=== PATIENT | female | born 1965 | race Caucasian/White ===

== ENCOUNTER 2018-07-18 19:47 | Emergency (ER) | payer BC ==
[2018-07-18] MEDS ORDERED: KETOROLAC 30 MG/ML INJ ONE (21:12)
[2018-07-18] MEDS ORDERED: predniSONE 20 MG TAB ONE (21:12)
[2018-07-18 21:19] LABS: Urine Blood TRACE (NEG); Urine Glucose NEGATIVE (NEG); Urine Protein NEGATIVE (NEG); Urine pH 6.5 (5.0-7.0)
--- NOTE | 2018-07-18 21:58 | EDPHYS ---
Physician Documentation [facility] Name: Rosa Isela Grant Age: 53 yrs Sex: Female : 1965 Arrival Date: 07/18/2018 Time: 19:50 Bed 18 Private MD: Landry Schaffer ED Physician Steve Addison HPI: 07/18 21:44 This 53 yrs old Female presents to ER via Ambulatory with complaints of Back gs Pain. 21:48 The patient presents with pain that is acute. The symptoms are located in the left gs scapular area. Onset: The symptoms/episode began/occurred 2 week(s) ago, and became persistent. The pain does not radiate. Associated signs and symptoms: Pertinent negatives: abdominal pain, chest pain, dysuria, fever. Modifying factors: the patient symptoms are aggravated by any movement, turning, touching medial to left scapula. Severity of symptoms: At their worst the symptoms were moderate, in the emergency department the symptoms are unchanged. The patient has not experienced similar symptoms in the past. 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 - Social history:: Smoking status: Patient/guardian denies using tobacco. - Ebola Screening: : Patient denies travel to an Ebola-affected area in the 21 days before illness onset. ROS: 21:48 All other systems are negative. gs Exam: 21:48 Head/Face: Normocephalic, atraumatic. Eyes: Pupils equal round and reactive to light, gs extra-ocular motions intact. Lids and lashes normal. Conjunctiva and sclera are non-icteric and not injected. Cornea within normal limits. Periorbital areas with no swelling, redness, or edema. ENT: Nares patent. No nasal discharge, no septal abnormalities noted. Tympanic membranes are normal and external auditory canals are clear. Oropharynx with no redness, swelling, or masses, exudates, or evidence of obstruction, uvula midline. Mucous membranes moist. Neck: Trachea midline, no thyromegaly or masses palpated, and no cervical lymphadenopathy. Supple, full range of motion without nuchal rigidity, or vertebral point tenderness. No Meningismus. Chest/axilla: Normal chest wall appearance and motion. Nontender with no deformity. No lesions are appreciated. Cardiovascular: Regular rate and rhythm with a normal S1 and S2. No gallops, murmurs, or rubs. Normal PMI, no JVD. No pulse deficits. Respiratory: Lungs have equal breath sounds bilaterally, clear to auscultation and percussion. No rales, rhonchi or wheezes noted. No increased work of breathing, no retractions or nasal flaring. Abdomen/GI: Soft, non-tender, with normal bowel sounds. No distension or tympany. No guarding or rebound. No evidence of tenderness throughout. Skin: Warm, dry with normal turgor. Normal color with no rashes, no lesions, and no evidence of cellulitis. MS/ Extremity: Pulses equal, no cyanosis. Neurovascular intact. Full, normal range of motion. Neuro: Awake and alert, GCS 15, oriented to person, place, time, and situation. Cranial nerves II-XII grossly intact. Motor strength 5/5 in all extremities. Sensory grossly intact. Cerebellar exam normal. Normal gait. 21:48 Constitutional: The patient appears alert, awake. 21:48 ECG was reviewed by the Attending Physician. 21:48 Back: pain, that is moderate, of the left scapular area. Vital Signs: 20:27 BP 154 / 116; Pulse 105; Resp 20; Temp 97.8; Pulse Ox 99% on R/A; Weight 86.18 kg (R); aj1 Height 5 ft. 2 in. (157.48 cm) (R); Pain 9/10; 21:51 BP 134 / 94; Pulse 81; Resp 16; Pulse Ox 98% on R/A; la1 20:27 Body Mass Index 34.75 (86.18 kg, 157.48 cm) aj1 MDM: 20:41 Patient medically screened. gs 21:48 Differential diagnosis: Ligament Injury sprain. Data reviewed: vital signs, nurses gs notes. Counseling: I had a detailed discussion with the patient and/or guardian regarding: the historical points, exam findings, and any diagnostic results supporting the discharge/admit diagnosis, radiology results, the need for outpatient follow up. Response to treatment: the patient's symptoms have markedly improved after treatment, and as a result, I will discharge patient. 07/18 20:53 Order name: Urine Dipstick--Ancillary (enter results) em 07/18 20:53 Order name: Urine --Ancillary (enter results) em 07/18 20:47 Order name: EKG; Complete Time: 20:47 07/18 20:47 Order name: XRAY Chest Pa And Lat (2 Views) 07/18 20:47 Order name: EKG - Nurse/Tech; Complete Time: 20:54 07/18 20:53 Order name: Urine Test (obtain specimen); Complete Time: 20:53 em1 EC:48 Rate is 81 beats/min. Rhythm is regular. MI interval is normal. QRS interval is normal. gs T waves are Flattened. Clinical impression: NSR w/ Non-specific ST/T Changes and Abnormal EKG without significant change. Interpreted by me. Administered Medications: 21:08 Drug: predniSONE 20 mg Route: PO; la1 21:51 Follow up: Response: No adverse reaction la1 21:08 Drug: TORadol 30 mg Route: IM; Site: left gluteus; la1 21:51 Follow up: Response: No adverse reaction; Pain is decreased la1 Disposition: 07/18/18 21:57 Discharged to Home. Impression: Dorsalgia. - Condition is Stable. - Discharge Instructions: Back Pain, Adult. - Prescriptions for Prednisone 20 mg Oral Tablet - take 1 tablet by ORAL route once daily for 5 days; 5 tablet. Tylenol- Codeine #4 300-60 mg Oral Tablet - take 1 tablet by ORAL route every 6 hours As needed; 10 tablet. - Medication Reconciliation Form, Thank You Letter, Antibiotic Education, Prescription Opioid Use form. - Follow up: Private Physician; When: 2 - 3 days; Reason: Re-evaluation by your physician. Signatures: Dispatcher [employer] EDMS Rosa Isela Jiménez RN RN Te Odell em1 Corey Lazo RN RN la1 Steve Addison MD MD gs Corrections: (The following items were deleted from the chart) 22:01 21:57 07/18/2018 21:57 Discharged to Home. Impression: Dorsalgia. Condition is Stable. la1 Forms are Medication Reconciliation Form, Thank You Letter, Antibiotic Education, Prescription Opioid Use. Follow up: Private Physician; When: 2 - 3 days; Reason: Re-evaluation by your physician. gs
--- NOTE | 2018-07-18 21:58 | ER ---
Nurse's Notes [facility] Name: Rosa Isela Grant Age: 53 yrs Sex: Female : 1965 Arrival Date: 07/18/2018 Time: 19:50 Bed 18 Private MD: Landry Schaffer Diagnosis: Dorsalgia Presentation: 07/18 20:20 Presenting complaint: Patient states: "A couple weeks now between my shoulder blades aj1 and then down my left side. I know I have gallstones. Its gotten to where I can't take deep breaths and sitting positions are very uncomfortable." Patient states that she was diagnosed with gallstones a year ago, but [facility] to follow up with anyone about it. Transition of care: patient was not received from another setting of care. Onset of symptoms was June 2018. Risk Assessment: Do you want to hurt yourself or someone else? Patient reports no desire to harm self or others. Initial Sepsis Screen: Does the patient meet any 2 criteria? HR > 90 bpm. No. Patient's initial sepsis screen is negative. Does the patient have a suspected source of infection? Yes: Acute abdominal pain. Care prior to arrival: None. 20:20 Method Of Arrival: Ambulatory aj1 20:20 Acuity: BRISSA 3 aj1 Triage Assessment: 20:27 General: Appears in no apparent distress. comfortable, Behavior is calm, cooperative, aj1 appropriate for age. Pain: Complains of pain in left scapular area, right scapular area, left subscapular area and thoracic area Pain currently is 9 out of 10 on a pain scale. Neuro: Level of Consciousness is awake, alert, obeys commands. Cardiovascular: Patient's skin is warm and dry. Respiratory: Airway is patent Respiratory effort is even, unlabored, Respiratory pattern is regular, symmetrical. Musculoskeletal: Range of motion: intact in all extremities. 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 - Social history:: Smoking status: Patient/guardian denies using tobacco. - Ebola Screening: : Patient denies travel to an Ebola-affected area in the 21 days before illness onset. Screenin:59 Abuse screen: Denies threats or abuse. Nutritional screening: No deficits noted. la1 Tuberculosis screening: No symptoms or risk factors identified. Fall Risk None identified. Assessment: 20:58 General: Appears uncomfortable, Behavior is calm, cooperative, appropriate for age. la1 Pain: Complains of pain in back and thoracic area and left subscapular area. Neuro: Level of Consciousness is awake, alert, obeys commands, Oriented to person, place, time, situation. Cardiovascular: Heart tones S1 S2 present Capillary refill < 3 seconds Patient's skin is warm and dry. Respiratory: Airway is patent Trachea midline Respiratory effort is even, unlabored, Respiratory pattern is regular, symmetrical. GI: No signs and/or symptoms were reported involving the gastrointestinal system. : No signs and/or symptoms were reported regarding the genitourinary system. 21:48 Reassessment: Patient appears in no apparent distress at this time. No changes from la1 previously documented assessment. Patient and/or family updated on plan of care and expected duration. Pain level reassessed. Vital Signs: 20:27 BP 154 / 116; Pulse 105; Resp 20; Temp 97.8; Pulse Ox 99% on R/A; Weight 86.18 kg (R); aj1 Height 5 ft. 2 in. (157.48 cm) (R); Pain 9/10; 21:51 BP 134 / 94; Pulse 81; Resp 16; Pulse Ox 98% on R/A; la1 20:27 Body Mass Index 34.75 (86.18 kg, 157.48 cm) aj1 ED Course: 19:50 Patient arrived in ED. al2 19:50 Landry Schaffer MD is Private Physician. al2 20:26 Triage completed. aj1 20:27 Arm band placed on Patient placed in an exam room, on a stretcher. aj1 20:33 Steve Addison MD is Attending Physician. gs 20:49 Corey Lazo, RUSS is Primary Nurse. la1 20:59 Call light in reach. Side rails up X 1. la1 21:16 XRAY Chest Pa And Lat (2 Views) In Process Unspecified. EDMS 22:00 No provider procedures requiring assistance completed. Patient did not have IV access la1 during this emergency room visit. Administered Medications: 21:08 Drug: predniSONE 20 mg Route: PO; la1 :51 Follow up: Response: No adverse reaction la1 21: Drug: TORadol 30 mg Route: IM; Site: left gluteus; la1 21:51 Follow up: Response: No adverse reaction; Pain is decreased la1 Outcome: :57 Discharge ordered by . glenroy 22:00 Discharged to home ambulatory. la1 22:00 Condition: stable 22:00 Discharge instructions given to patient, Instructed on discharge instructions, follow up and referral plans. medication usage, Demonstrated understanding of instructions, follow-up care, medications, Prescriptions given X 2. 22:01 Patient left the ED. la1 Signatures: Dispatcher [employer] EDMS Rosa Isela Jiménez RN RN aj1 Corey Lazo RN RN la1 Steve Addison MD MD gs Love, Telma mooney
[2018-07-19 09:26] VITALS: TEMP 97.8
[2018-07-19 09:27] VITALS: BP 134/94; O2SAT 98
--- NOTE | 2018-07-19 11:47 | EKG ---
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
--- NOTE | 2018-07-19 12:52 | RAD REPORT ---
EXAM DESCRIPTION: RAD - Chest Pa And Lat (2 Views) - 07/18/2018 9:42 pm CLINICAL HISTORY: Chest pain, back pain COMPARISON: March 30, 2018 TECHNIQUE: PA and lateral views of the chest were obtained. FINDINGS: The lungs are clear. Lung markings are similar to comparison. Heart size is normal and ce ntral vasculature is within normal limits. No pleural effusion or pneumothorax seen. No acute bony finding noted. No aortic abnormality. IMPRESSION: No acute cardiopulmonary process.
== END 2018-07-18 22:01 | disposition home or self-care (01) ==
LOC: ER 19:47
DX: M54.9 Dorsalgia, unspecified (principal); I10 Essential (primary) hypertension; Z79.82 Long term (current) use of aspirin; Z88.0 Allergy status to penicillin
CPT/HCPCS: 71046; 81003; 81025; 93005; 96372; 99283; J7512

== ENCOUNTER 2018-08-03 00:34 | Emergency (ER) | payer BC ==
[2018-08-03] MEDS ORDERED: MORPHINE 4 MG/ML SYR ONE (01:16)
[2018-08-03] MEDS ORDERED: ONDANSETRON 4 MG/2 ML VIAL ONE (01:16)
[2018-08-03 01:19] LABS: Absolute Lymphocytes (CBC) 2.1 K/uL (0.7-4.9); Absolute Monocytes 1.1 K/uL (0.1-1.3); Absolute Neutrophil 6.3 K/uL (1.8-8.0); Basophils % 0.6 % (0-1.3); Eosinophils % 0.9 % (0-4.4); Hematocrit 43.3 % (36.0-45.0); Lymphocytes % 21.6 % (15.3-44.8); MCH 31.1 pg (27.0-35.0); MPV 8.2 fL (7.6-11.3); Monocytes % 11.5 % (3.3-12.3); RBC Red Blood Cell Count 4.75 M/uL (3.86-4.86)
[2018-08-03 01:40] LABS: Albumin 3.8 g/dL (3.4-5.0); Bilirubin Direct 0.2 mg/dL (0-0.2); Potassium 3.8 mmol/L (3.5-5.1); Protein, Total 7.7 g/dL (6.4-8.2)
[2018-08-03 02:34] LABS: Urine Blood TRACE (NEG); Urine Glucose NEGATIVE (NEG); Urine Protein NEGATIVE (NEG)
--- NOTE | 2018-08-03 03:08 | ER ---
Nurse's Notes [facility] Name: Rosa Isela Grant Age: 53 yrs Sex: Female : 1965 Arrival Date: 08/03/2018 Time: 00:35 Bed 14 Private MD: Landry Schaffer Diagnosis: Cholelithiasis Presentation: 08/03 00:47 Presenting complaint: Patient states: I have gallstones and am suppose to see Dr. greg Strauss Tuesday to schedule the removal of my gallbladder. This round of pain started on Tuesday and hasn't gotten better. Transition of care: patient was not received from another setting of care. Onset of symptoms was July 30, 2018. Risk Assessment: Do you want to hurt yourself or someone else? Patient reports no desire to harm self or others. Initial Sepsis Screen: Does the patient meet any 2 criteria? No. Patient's initial sepsis screen is negative. Does the patient have a suspected source of infection? No. Patient's initial sepsis screen is negative. Care prior to arrival: None. 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 - Social history:: Smoking status: Patient/guardian denies using tobacco, Patient/guardian denies using alcohol. - Ebola Screening: : No symptoms or risks identified at this time. Screenin:56 Abuse screen: Denies threats or abuse. Nutritional screening: No deficits noted. jb4 Tuberculosis screening: No symptoms or risk factors identified. Fall Risk IV access (20 points). Assessment: 01:15 General: Appears in no apparent distress. uncomfortable, Behavior is calm, cooperative, jb4 appropriate for age. Pain: Complains of pain in right upper quadrant Pain radiates to right mid back Pain currently is 10 out of 10 on a pain scale. Quality of pain is described as sharp, shooting, Pain began 2-3 days ago. Neuro: Level of Consciousness is awake, alert, obeys commands, Oriented to person, place, time, situation. Cardiovascular: Patient's skin is warm and dry. Respiratory: Airway is patent Respiratory effort is even, unlabored, Respiratory pattern is regular, symmetrical. GI: Bowel sounds present X 4 quads. Abd is soft X 4 quads Abd is non tender in left upper quadrant, right lower quadrant and left lower quadrant Abdomen is tender to palpation in right upper quadrant Reports nausea, vomiting. : No signs and/or symptoms were reported regarding the genitourinary system. EENT: No signs and/or symptoms were reported regarding the EENT system. Derm: Skin is intact, Skin is pink, warm \T\ dry. Musculoskeletal: Circulation, motion, and sensation intact. 02:28 Reassessment: Patient appears in no apparent distress at this time. Patient and/or jb4 family updated on plan of care and expected duration. Pain level reassessed. PT is resting quietly in bed with eyes closed, Respirations are even and unlabored. 03:47 Reassessment: Patient appears in no apparent distress at this time. Patient and/or jb4 family updated on plan of care and expected duration. Pain level reassessed. Patient is alert, oriented x 3, equal unlabored respirations, skin warm/dry/pink. Vital Signs: 00:52 BP 137 / 88; Pulse 76; Resp 18; Temp 100.0(O); Pulse Ox 99% on R/A; Weight 86.18 kg jb4 (R); Height 5 ft. 2 in. (157.48 cm) (R); Pain 10/10; 02:15 BP 128 / 83; Pulse 73; Resp 16; Pulse Ox 95% on R/A; jb4 03:47 BP 114 / 85; Pulse 79; Resp 16; Pulse Ox 93% on R/A; jb4 00:52 Body Mass Index 34.75 (86.18 kg, 157.48 cm) jb4 ED Course: 00:35 Patient arrived in ED. ds1 00:35 Landry Schaffer MD is Private Physician. ds1 00:42 Donate Oshea RN is Primary Nurse. jb4 00:50 Triage completed. jb4 00:50 Darinel Coppola NP is PHCP. pm1 00:50 Slava Maldonado MD is Attending Physician. pm1 00:52 Arm band placed on left wrist. jb4 00:56 Patient has correct armband on for positive identification. Bed in low position. Call jb4 light in reach. Side rails up X 1. Pulse ox on. NIBP on. 00:56 Initial lab(s) drawn, by ED staff, sent to lab. Inserted saline lock: 20 gauge in right jb4 antecubital area, using aseptic technique. Blood collected. 01:57 CT completed. Patient tolerated procedure well. Patient moved to CT via wheelchair. Patient moved back from CT. 02:05 Abdomen In Process Unspecified. EDMS 03:07 Dontae Oakley MD is Referral Physician. pm1 03:47 No provider procedures requiring assistance completed. IV discontinued, intact, jb4 bleeding controlled. Administered Medications: 01:10 Drug: Zofran 4 mg Route: IVP; Site: right antecubital; jb4 02:00 Follow up: Response: No adverse reaction; Nausea is decreased jb4 01:13 Drug: morphine 4 mg Route: IVP; Site: right antecubital; jb4 01:59 Follow up: Response: No adverse reaction; Pain is decreased jb4 Outcome: 03:07 Discharge ordered by . pm1 03:47 Discharged to home ambulatory, with significant other. jb4 03:47 Condition: stable 03:47 Discharge instructions given to patient, significant other, Instructed on discharge instructions, follow up and referral plans. medication usage, Demonstrated understanding of instructions, follow-up care, medications, Prescriptions given X 3. 03:49 Patient left the ED. jb4 Signatures: Dispatcher [employer] EDNC Erick Saha Graciela Vital ds1 Darinel Coppola, JORDANA COMPUTATOR pm1 Dontae Oshea, RN RN jb4
--- NOTE | 2018-08-03 03:08 | EDPHYS ---
Physician Documentation [facility] Name: Rosa Isela Grant Age: 53 yrs Sex: Female : 1965 Arrival Date: 08/03/2018 Time: 00:35 Bed 14 Private MD: Landry Schaffer ED Physician Slava Maldonado HPI: 08/03 01:50 This 53 yrs old Female presents to ER via Ambulatory with complaints of pm1 Abdominal Pain, Nausea/Vomiting. 01:50 The patient presents with abdominal pain in the epigastric area. pm1 01:50 Onset: The symptoms/episode began/occurred 4 day(s) ago. The symptoms radiate to right pm1 back. Associated signs and symptoms: Pertinent positives: nausea and vomiting, Pertinent negatives: chest pain, dysuria, fever, headache, shortness of breath. The symptoms are described as achy, constant. Modifying factors: The symptoms are alleviated by nothing, the symptoms are aggravated by nothing. Severity of pain: in the emergency department the pain is actually worse. Diagnosed with gallstones last year. has an appointment with Dr. Oakley on Tuesday to be evaluted for elective surgery. The patient has not recently seen a physician, has an appointment scheduled. 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 - Social history:: Smoking status: Patient/guardian denies using tobacco, Patient/guardian denies using alcohol. - Ebola Screening: : No symptoms or risks identified at this time. ROS: 01:50 Constitutional: Negative for fever, chills, and weight loss, Eyes: Negative for injury, pm1 pain, redness, and discharge, ENT: Negative for injury, pain, and discharge, Neck: Negative for injury, pain, and swelling, Cardiovascular: Negative for chest pain, palpitations, and edema, Respiratory: Negative for shortness of breath, cough, wheezing, and pleuritic chest pain. 01:50 Back: Negative for injury and pain, : Negative for injury, bleeding, discharge, and swelling, MS/Extremity: Negative for injury and deformity, Skin: Negative for injury, rash, and discoloration, Neuro: Negative for headache, weakness, numbness, tingling, and seizure. 01:50 Abdomen/GI: Positive for abdominal pain, nausea and vomiting, Negative for diarrhea. Exam: 01:50 Constitutional: This is a well developed, well nourished patient who is awake, alert, pm1 and in no acute distress. Head/Face: Normocephalic, atraumatic. Eyes: Pupils equal round and reactive to light, extra-ocular motions intact. Lids and lashes normal. Conjunctiva and sclera are non-icteric and not injected. Cornea within normal limits. Periorbital areas with no swelling, redness, or edema. ENT: Nares patent. No nasal discharge, no septal abnormalities noted. Tympanic membranes are normal and external auditory canals are clear. Oropharynx with no redness, swelling, or masses, exudates, or evidence of obstruction, uvula midline. Mucous membranes moist. Neck: Trachea midline, no thyromegaly or masses palpated, and no cervical lymphadenopathy. Supple, full range of motion without nuchal rigidity, or vertebral point tenderness. No Meningismus. Chest/axilla: Normal chest wall appearance and motion. Nontender with no deformity. No lesions are appreciated. Cardiovascular: Regular rate and rhythm with a normal S1 and S2. No gallops, murmurs, or rubs. Normal PMI, no JVD. No pulse deficits. Respiratory: Lungs have equal breath sounds bilaterally, clear to auscultation and percussion. No rales, rhonchi or wheezes noted. No increased work of breathing, no retractions or nasal flaring. 01:50 Back: No spinal tenderness. No costovertebral tenderness. Full range of motion. Skin: Warm, dry with normal turgor. Normal color with no rashes, no lesions, and no evidence of cellulitis. MS/ Extremity: Pulses equal, no cyanosis. Neurovascular intact. Full, normal range of motion. 01:50 Abdomen/GI: Inspection: abdomen appears normal, Bowel sounds: normal, Palpation: soft, mild abdominal tenderness, in the right upper quadrant, mass, is not appreciated, rebound tenderness, is not appreciated. 01:50 Neuro: Orientation: is normal, Motor: is normal, moves all fours, Sensation: is normal. Vital Signs: 00:52 BP 137 / 88; Pulse 76; Resp 18; Temp 100.0(O); Pulse Ox 99% on R/A; Weight 86.18 kg jb4 (R); Height 5 ft. 2 in. (157.48 cm) (R); Pain 10/10; 02:15 BP 128 / 83; Pulse 73; Resp 16; Pulse Ox 95% on R/A; jb4 03:47 BP 114 / 85; Pulse 79; Resp 16; Pulse Ox 93% on R/A; jb4 00:52 Body Mass Index 34.75 (86.18 kg, 157.48 cm) jb4 MDM: 00:50 Patient medically screened. pm1 01:53 Data reviewed: vital signs. Data interpreted: Pulse oximetry: on room air is 99 %. pm1 Interpretation: normal. 03:05 ED course: CT [facility] report: multiple gallstones in the gallbladder, evidence of pm1 appendectomy. 03:07 Counseling: I had a detailed discussion with the patient and/or guardian regarding: the pm1 historical points, exam findings, and any diagnostic results supporting the discharge/admit diagnosis, lab results, radiology results, the need for outpatient follow up, for definitive care, a general surgeon, to return to the emergency department if symptoms worsen or persist or if there are any questions or concerns that arise at home. 03:07 ED course: Patient is comfortable 3/10 pain at the moment. [place] that she was 15/10 on pm1 arrival. 03:15 ED course: Has appointment at 10:[address] Oakley. pm1 08/03 01:12 Order name: Basic Metabolic Panel; Complete Time: 02:25 EDMS 08/03 01:12 Order name: Liver (Hepatic) Function; Complete Time: 02:25 EDMS 08/03 01:12 Order name: Lipase; Complete Time: 02:25 EDMS 08/03 01:12 Order name: Creatinine (Radiology Only); Complete Time: 01:54 EDMS 08/03 01:12 Order name: CBC with Automated Diff; Complete Time: 01:54 EDMS 08/03 01:38 Order name: Abdomen EDMS 08/03 02:02 Order name: Urine Dipstick--Ancillary (enter results); Complete Time: 02:43 gm 08/03 02:02 Order name: Urine --Ancillary (enter results); Complete Time: 02:43 gm 08/03 00:51 Order name: IV Saline Lock; Complete Time: 00:58 pm1 08/03 00:51 Order name: Labs collected and sent; Complete Time: 00:58 pm1 08/03 00:51 Order name: Urine Dipstick-Ancillary (obtain specimen); Complete Time: 01:59 pm1 08/03 00:51 Order name: Urine Test (obtain specimen); Complete Time: 01:59 pm1 Administered Medications: 01:10 Drug: Zofran 4 mg Route: IVP; Site: right antecubital; jb4 02:00 Follow up: Response: No adverse reaction; Nausea is decreased 4 01:13 Drug: morphine 4 mg Route: IVP; Site: right antecubital; jb4 01:59 Follow up: Response: No adverse reaction; Pain is decreased 4 Disposition: 06:05 Co-signature as Attending Physician, Slava Maldonado MD I agree with the assessment and 4 plan of care. Disposition: 08/03/18 03:07 Discharged to Home. Impression: Cholelithiasis. - Condition is Stable. - Discharge Instructions: Cholelithiasis. - Prescriptions for Tylenol- Codeine #3 300-30 mg Oral Tablet - take 2 tablets by ORAL route every 6 hours As needed; 20 tablet. Zofran 4 mg Oral Tablet - take 1 tablet by ORAL route every 12 hours As needed; 20 tablet. Bentyl 20 mg Oral Tablet - take 1 tablet by ORAL route every 6 hours As needed; 20 tablet. - Medication Reconciliation Form, Thank You Letter, Antibiotic Education, Prescription Opioid Use form. - Follow up: Emergency Department; When: As needed; Reason: Worsening of condition. Follow up: Dontae Oakley MD; When: 2 - 3 days; Reason: Recheck today's complaints, Continuance of care, Re-evaluation by your physician. - Problem is new. - Symptoms have improved. Signatures: Dispatcher [employer] EDGA Darinel Coppola, SHRIMP PICKER SHRIMP PICKER pm1 Dontae Oshea, RUSS RN jb4 Slava Maldonado MD MD tw4 Corrections: (The following items were deleted from the chart) 02:14 02:11 Abdomen Pelvis W Con+CT.RAD.BRZ ordered. EDGA EDMS 02:10 BASIC METABOLIC PANEL+C.LAB.BRZ ordered. EDGA EDMS 02:10 CBC+H.LAB.BRZ ordered. EDGA EDMS 02:10 Creatinine for Radiology+C.LAB.BRZ ordered. EDGA EDMS 02:10 HEPATIC FUNCTION+C.LAB.BRZ ordered. EDGA EDMS 02:10 LIPASE+C.LAB.BRZ ordered. EDGA EDMS 03:49 03:07 08/03/2018 03:07 Discharged to Home. Impression: Cholelithiasis. Condition is jb4 Stable. Forms are Medication Reconciliation Form, Thank You Letter, Antibiotic Education, Prescription Opioid Use. Follow up: Emergency Department; When: As needed; Reason: Worsening of condition. Follow up: Dontae Oakley; When: 2 - 3 days; Reason: Recheck today's complaints, Continuance of care, Re-evaluation by your physician. Problem is new. Symptoms have improved. pm1
[2018-08-03 04:20] VITALS: TEMP 100
[2018-08-03 04:22] VITALS: BP 114/85; O2SAT 93
--- NOTE | 2018-08-03 08:51 | RAD REPORT ---
EXAM DESCRIPTION: CTAbdomen Pelvis W Contrast - 08/03/2018 1:58 am CLINICAL HISTORY: Abdominal pain. RUQ PAIN FOR 4 DAYS AGO -- KNOWN GALLSTONES COMPARISON: Abdomen Pelvis W Contrast dated 10/31/2017; Abdomen Pelvis W Contrast dated 10/29/2017 TECHNIQUE: Biphasic CT imaging of the abdomen and pelvis was performed with 100 ml non-ionic IV cont rast. All CT scans are performed using dose optimization technique as appropriate and may include automated exposure control or mA/KV adjustment according to patient size. FINDINGS: The lung bases are clear.Several gallstones are present in the gallbladder. The liver, spleen, pancreas, adrenal glands and kidneys are within normal limits. No bowel obstruction, free air, free fluid or abscess. Appendectomy. No evidence of significant lym phadenopathy. Moderate L5-S1 spondylosis. IMPRESSION: Cholelithiasis.
== END 2018-08-03 03:49 | disposition home or self-care (01) ==
LOC: ER 00:34
DX: K80.20 Calculus of gallbladder without cholecystitis without obstruction (principal); I10 Essential (primary) hypertension; Z79.82 Long term (current) use of aspirin; Z88.0 Allergy status to penicillin
CPT/HCPCS: 36415; 74177; 80048; 80076; 81003; 81025; 83690; 85025; 96374; 96375; 99284; J2405; Q9967

== ENCOUNTER 2018-10-26 12:09 | Emergency (ER) | payer BC ==
--- NOTE | 2018-10-26 15:20 | RAD REPORT ---
EXAM DESCRIPTION: CT - Head Brain Wo Cont - 10/26/2018 3:09 pm CLINICAL HISTORY: Headache, hypertension COMPARISON: None. TECHNIQUE: Axial 5 mm thick images of the head were obtained without IV contrast. All CT scans are performed using dose optimization technique as appropriate and may include automated exposure control or mA/KV adjustment according to patient size. FINDINGS: No intracranial hemorrhage, mass, edema or shift of mid-line structures. No acute infarcti on changes seen. No abnormal extra-axial fluid collections. Ventricles are normal. Mastoid air cells and visualized portions of the paranasal sinuses are clear. No acute bony findings. IMPRESSION: Negative non-contrast CT head examination.
--- NOTE | 2018-10-26 16:25 | EDPHYS ---
Physician Documentation [facility] Name: Rosa Isela Grant Age: 53 yrs Sex: Female : 1965 Arrival Date: 10/26/2018 Time: 12:11 Bed 25 Private MD: Landry Schaffer ED Physician Matt Wray HPI: 10/26 14:00 This 53 yrs old Female presents to ER via Ambulatory with complaints of pm1 Headache, High Blood Pressure. 14:00 The patient complains of pain to the forehead, left base of the skull and right base of pm1 the skull. The patient describes the headache as aching. Onset: The symptoms/episode began/occurred just prior to arrival. Associated signs and symptoms: Pertinent positives: Elevated blood pressure, Pertinent negatives: fever, nausea, neck stiffness, rash, sinus congestion, sinus tenderness, vomiting, weakness, vertigo. Severity of symptoms: in the emergency department the pain a " 3" out of "10". Headache History: Denies prior headaches. The symptoms are alleviated by nothing. the symptoms are aggravated by nothing. The patient has not experienced similar symptoms in the past. The patient has not recently seen a physician. Patient did not take all her blood pressure medications today. 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 - Social history:: Smoking status: Patient/guardian denies using tobacco. - Ebola Screening: : No symptoms or risks identified at this time. ROS: 14:00 Constitutional: Negative for fever, chills, and weight loss, Eyes: Negative for injury, pm1 pain, redness, and discharge, ENT: Negative for injury, pain, and discharge, Neck: Negative for injury, pain, and swelling, Cardiovascular: Negative for chest pain, palpitations, and edema, Respiratory: Negative for shortness of breath, cough, wheezing, and pleuritic chest pain, Abdomen/GI: Negative for abdominal pain, nausea, vomiting, diarrhea, and constipation, Back: Negative for injury and pain, : Negative for injury, bleeding, discharge, and swelling, MS/Extremity: Negative for injury and deformity, Skin: Negative for injury, rash, and discoloration. 14:00 Neuro: Positive for headache, Negative for dizziness, numbness, seizure activity, tingling, weakness. Exam: 14:00 Constitutional: This is a well developed, well nourished patient who is awake, alert, pm1 and in no acute distress. Head/Face: Normocephalic, atraumatic. Eyes: Pupils equal round and reactive to light, extra-ocular motions intact. Lids and lashes normal. Conjunctiva and sclera are non-icteric and not injected. Cornea within normal limits. Periorbital areas with no swelling, redness, or edema. ENT: Nares patent. No nasal discharge, no septal abnormalities noted. Tympanic membranes are normal and external auditory canals are clear. Oropharynx with no redness, swelling, or masses, exudates, or evidence of obstruction, uvula midline. Mucous membranes moist. Neck: Trachea midline, no thyromegaly or masses palpated, and no cervical lymphadenopathy. Supple, full range of motion without nuchal rigidity, or vertebral point tenderness. No Meningismus. Chest/axilla: Normal chest wall appearance and motion. Nontender with no deformity. No lesions are appreciated. Cardiovascular: Regular rate and rhythm with a normal S1 and S2. No gallops, murmurs, or rubs. Normal PMI, no JVD. No pulse deficits. Respiratory: Lungs have equal breath sounds bilaterally, clear to auscultation and percussion. No rales, rhonchi or wheezes noted. No increased work of breathing, no retractions or nasal flaring. Abdomen/GI: Soft, non-tender, with normal bowel sounds. No distension or tympany. No guarding or rebound. No evidence of tenderness throughout. Back: No spinal tenderness. No costovertebral tenderness. Full range of motion. Skin: Warm, dry with normal turgor. Normal color with no rashes, no lesions, and no evidence of cellulitis. MS/ Extremity: Pulses equal, no cyanosis. Neurovascular intact. Full, normal range of motion. 14:00 Neuro: Orientation: is normal, Mentation: is normal, Cranial nerves: CN II- XII are normal as tested, Cerebellar function: normal finger to nose testing, heel to viveros testing is normal, Motor: is normal, moves all fours, Sensation: is normal, no obvious gross deficits, Gait: is steady, at a normal pace, without difficulty. Vital Signs: 12:19 BP 175 / 111; Pulse 89; Resp 16; Temp 98.3(TE); Pulse Ox 99% on R/A; Pain 4/10; hb 13:08 BP 137 / 105 LA (auto/lg); Pulse 80; Resp 18; Pulse Ox 98% on R/A; Pain 3/10; jp3 13:59 BP 130 / 99; Pulse 86; Resp 18; Pulse Ox 98% ; tl3 15:38 BP 124 / 87; Pulse 80; Resp 16; Pulse Ox 98% on R/A; tl3 16:17 BP 135 / 89; Pulse 76; Resp 18; Pulse Ox 99% on R/A; tl3 17:02 BP 136 / 99; Pulse 81; Resp 18; Pulse Ox 97% on R/A; tl3 13:08 pt reported pain as more pressure at the back of the neck jp3 MDM: 13:20 Patient medically screened. pm1 16:23 Data reviewed: vital signs. Data interpreted: Pulse oximetry: on room air is 99 %. pm1 Interpretation: normal. Counseling: I had a detailed discussion with the patient and/or guardian regarding: the historical points, exam findings, and any diagnostic results supporting the discharge/admit diagnosis, radiology results, the need for outpatient follow up, to return to the emergency department if symptoms worsen or persist or if there are any questions or concerns that arise at home. 10/26 14:52 Order name: CT Head Brain wo Cont; Complete Time: 15:48 pm1 Administered Medications: No medications were administered Disposition: 10/27 07:03 Co-signature as Attending Physician, Matt Wray MD I agree with the assessment and kdr plan of care. Disposition: 10/26/18 16:24 Discharged to Home. Impression: Headache, Essential (primary) hypertension. - Condition is Stable. - Discharge Instructions: Hypertension, How to Take Your Blood Pressure, [id number], General Headache Without Cause, [id number], DASH Eating Plan, Managing Your Hypertension. - Prescriptions for Fiorinal 50- 325-40 mg Oral Capsule - take 1 capsule by ORAL route every 4 hours As needed - not to exceed 6 capsules per day; 20 capsule. - Work release form, Medication Reconciliation Form, Thank You Letter, Prescription Opioid Use form. - Follow up: Emergency Department; When: As needed; Reason: Worsening of condition. Follow up: Private Physician; When: 2 - 3 days; Reason: Recheck today's complaints, Continuance of care, Re-evaluation by your physician. - Problem is new. - Symptoms have improved. Signatures: Dispatcher [employer] EDMS Matt Wray MD MD [facility] Darinel Coppola NP [facility] pm1 Yajaira Donohue RN RN Nikky Perez RN RN tl3 Corrections: (The following items were deleted from the chart) 10/26 17:05 16:24 10/26/2018 16:24 Discharged to Home. Impression: Headache; Essential (primary) tl3 hypertension. Condition is Stable. Forms are Medication Reconciliation Form, Thank You Letter, Antibiotic Education, Prescription Opioid Use. Follow up: Emergency Department; When: As needed; Reason: Worsening of condition. Follow up: Private Physician; When: 2 - 3 days; Reason: Recheck today's complaints, Continuance of care, Re-evaluation by your physician. Problem is new. Symptoms have improved. pm1
--- NOTE | 2018-10-26 16:25 | ER ---
Nurse's Notes [facility] Name: Rosa Isela Grant Age: 53 yrs Sex: Female : 1965 Arrival Date: 10/26/2018 Time: 12:11 Bed 25 Private MD: Landry Schaffer Diagnosis: Headache;Essential (primary) hypertension Presentation: 10/26 12:17 Presenting complaint: Home BP 152/105 and headache since this morning. Took her hb lisinopril but did not take her triamterene/HCTZ today. Transition of care: patient was not received from another setting of care. Onset of symptoms was October 26, 2018. Risk Assessment: Do you want to hurt yourself or someone else? Patient reports no desire to harm self or others. Care prior to arrival: None. 12:17 Method Of Arrival: Ambulatory hb 12:17 Acuity: BRISSA 3 hb Triage Assessment: 17:05 Pain: Also complains of. 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 - Social history:: Smoking status: Patient/guardian denies using tobacco. - Ebola Screening: : No symptoms or risks identified at this time. Screenin:59 Abuse screen: Denies threats or abuse. Nutritional screening: No deficits noted. tl3 Tuberculosis screening: No symptoms or risk factors identified. Fall Risk None identified. Assessment: 13:59 Reassessment: pt reports that she was just not feeling right at work this am, BP was tl3 elevated, to Amlodipine but did not take diuretic this am, states that she does not take it as she should. General: Appears in no apparent distress. comfortable, well groomed, well developed, well nourished, Behavior is calm, cooperative, appropriate for age. Pain: Complains of pain in mild headache. Neuro: Level of Consciousness is awake, alert, obeys commands, Oriented to person, place, time, situation, Appropriate for age. Cardiovascular: Heart tones S1 S2 present Patient's skin is warm and dry. Respiratory: Airway is patent Respiratory effort is even, unlabored, Respiratory pattern is regular, symmetrical, Breath sounds are clear bilaterally. GI: No signs and/or symptoms were reported involving the gastrointestinal system. : No signs and/or symptoms were reported regarding the genitourinary system. EENT: No signs and/or symptoms were reported regarding the EENT system. Derm: No signs and/or symptoms reported regarding the dermatologic system. Musculoskeletal: No signs and/or symptoms reported regarding the musculoskeletal system. 15:38 Reassessment: No changes from previously documented assessment. Patient and/or family tl3 updated on plan of care and expected duration. Pain level reassessed. Patient is alert, oriented x 3, equal unlabored respirations, skin warm/dry/pink. CT Results reviewed with pt. 16:17 Reassessment: Patient appears in no apparent distress at this time. No changes from tl3 previously documented assessment. Patient and/or family updated on plan of care and expected duration. Pain level reassessed. Patient is alert, oriented x 3, equal unlabored respirations, skin warm/dry/pink. Darinel at bedside discussing POC. 17:02 Reassessment: Patient appears in no apparent distress at this time. No changes from tl3 previously documented assessment. Patient and/or family updated on plan of care and expected duration. Pain level reassessed. Patient is alert, oriented x 3, equal unlabored respirations, skin warm/dry/pink. pt being discharged. Vital Signs: 12:19 BP 175 / 111; Pulse 89; Resp 16; Temp 98.3(TE); Pulse Ox 99% on R/A; Pain 4/10; hb 13:08 BP 137 / 105 LA (auto/lg); Pulse 80; Resp 18; Pulse Ox 98% on R/A; Pain 3/10; jp3 13:59 BP 130 / 99; Pulse 86; Resp 18; Pulse Ox 98% ; tl3 15:38 BP 124 / 87; Pulse 80; Resp 16; Pulse Ox 98% on R/A; tl3 16:17 BP 135 / 89; Pulse 76; Resp 18; Pulse Ox 99% on R/A; tl3 17:02 BP 136 / 99; Pulse 81; Resp 18; Pulse Ox 97% on R/A; tl3 13:08 pt reported pain as more pressure at the back of the neck jp3 ED Course: 12:11 Patient arrived in ED. rg4 12:12 Landry Schaffer MD is Private Physician. rg4 12:19 Triage completed. hb 12:21 Arm band placed on. hb 13:06 Bed in low position. Call light in reach. Warm blanket given. jp3 13:06 Pulse ox on. NIBP on. jp3 13:19 Darinel Coppola NP is PHCP. pm1 13:19 Matt Wray MD is Attending Physician. pm1 13:54 Nikky Perez RN is Primary Nurse. tl3 13:59 No provider procedures requiring assistance completed. tl3 15:08 CT completed. Patient tolerated procedure well. Patient moved to CT via wheelchair. Patient moved back from CT. 15:08 CT Head Brain wo Cont In Process Unspecified. EDMS 17:02 Patient did not have IV access during this emergency room visit. tl3 Administered Medications: No medications were administered Outcome: 16:24 Discharge ordered by MD. pm1 17:02 Discharged to home ambulatory. tl3 17:02 Condition: stable 17:02 Discharge instructions given to patient, family, Instructed on discharge instructions, follow up and referral plans. medication usage, Demonstrated understanding of instructions, follow-up care, medications, Prescriptions given X 1. 17:05 Patient left the ED. tl3 Signatures: Dispatcher [employer] EDMN Bradley Josie Darinel Coppola NP CALL OR CONTACT CENTRE MANAGER pm1 Yajaira Donohue RN RN Trini Ruiz rg4 Nikky Perez RN RN tl3 Sorin Gonzalez jp3 Corrections: (The following items were deleted from the chart) 12:22 12:17 Presenting complaint: Home BP 152/105 and headache since this morning. hb hb
[2018-10-26 17:55] VITALS: TEMP 98.3
[2018-10-26 18:01] VITALS: BP 136/99; O2SAT 97
== END 2018-10-26 17:05 | disposition home or self-care (01) ==
LOC: ER 12:09
DX: I10 Essential (primary) hypertension (principal); Z88.0 Allergy status to penicillin
CPT/HCPCS: 70450; 99284

== ENCOUNTER 2019-01-25 07:06 | Emergency (ER) | payer BC ==
[2019-01-25] MEDS ORDERED: NA CHLORIDE 0.9% 500 ML ONE (08:38)
[2019-01-25 08:39] LABS: Absolute Lymphocytes (CBC) 0.9 K/uL (0.7-4.9); Absolute Monocytes 0.5 K/uL (0.1-1.3); Absolute Neutrophil 4.5 K/uL (1.8-8.0); Basophils % 0.3 % (0-1.3); Eosinophils % 0.6 % (0-4.4); Lymphocytes % 15.4 % (15.3-44.8); MPV 7.9 fL (7.6-11.3); Monocytes % 8.3 % (3.3-12.3); RBC Red Blood Cell Count 4.83 M/uL (3.86-4.86)
[2019-01-25 09:04] LABS: ALT/SGPT 37 U/L (12-78); AST/SGOT 21 U/L (15-37); Alkaline Phosphatase 119 U/L (45-117); BUN Blood Urea Nitrogen 13 mg/dL (7-18); Bicarbonate 31 mmol/L (21-32); Bilirubin Direct 0.2 mg/dL (0-0.2); Bilirubin Total 1.1 mg/dL (0.2-1.0); Glucose Level 167 mg/dL (74-106); Magnesium 2.2 mg/dL (1.8-2.4); NT PRO-BNP 15 pg/mL (<125); Potassium 3.5 mmol/L (3.5-5.1); Sodium Level 142 mmol/L (136-145); Troponin (Emerg Dept Use Only) < 0.02 ng/mL (0.0-0.045)
--- NOTE | 2019-01-25 09:22 | RAD REPORT ---
EXAM DESCRIPTION: Kelsey Single View01/25/2019 8:25 am CLINICAL HISTORY: Cough COMPARISON: June 2018 FINDINGS: The lungs appear clear of acute infiltrate. The heart is normal size IMPRESSION: No acute abnormalities displayed
--- NOTE | 2019-01-25 10:29 | EDPHYS ---
Physician Documentation [facility] Name: Rosa Isela Grant Age: 53 yrs Sex: Female : 1965 Arrival Date: 01/25/2019 Time: 07:08 Bed 20 Private MD: ED Physician Terence Haskins HPI: 01/25 08:54 This 53 yrs old Female presents to ER via Ambulatory with complaints of gabriella Cough, Palpitations. 08:54 The patient or guardian reports cough. gabriella 08:54 The patient presents with a history of irregular heart beat, heart skipping beats. gabriella Context: The symptoms occur with light activity. Onset: The symptoms/episode began/occurred this morning, yesterday. Duration: The patient or guardian reports multiple episodes, that are intermittent. Modifying factors: The symptoms are aggravated by nothing. The symptoms are alleviated by nothing. Severity of symptoms: At their worst the symptoms were mild, in the emergency department the symptoms are unchanged. 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 - Social history:: Smoking status: Patient/guardian denies using tobacco. - Ebola Screening: : No symptoms or risks identified at this time. - Family history:: not pertinent. ROS: 08:54 Constitutional: Negative for fever, chills, and weight loss, Eyes: Negative for injury, gabriella pain, redness, and discharge, ENT: Negative for injury, pain, and discharge, Neck: Negative for injury, pain, and swelling, Abdomen/GI: Negative for abdominal pain, nausea, vomiting, diarrhea, and constipation, Back: Negative for injury and pain, : Negative for injury, bleeding, discharge, and swelling, MS/Extremity: Negative for injury and deformity, Skin: Negative for injury, rash, and discoloration, Neuro: Negative for headache, weakness, numbness, tingling, and seizure, Psych: Negative for depression, anxiety, suicide ideation, homicidal ideation, and hallucinations, Allergy/Immunology: Negative for hives, rash, and allergies, Endocrine: Negative for neck swelling, polydipsia, polyuria, polyphagia, and marked weight changes, Hematologic/Lymphatic: Negative for swollen nodes, abnormal bleeding, and unusual bruising. 08:54 Cardiovascular: Positive for palpitations. 08:54 Respiratory: Positive for cough. Exam: 08:54 Constitutional: This is a well developed, well nourished patient who is awake, alert, gabriella and in no acute distress. Head/Face: Normocephalic, atraumatic. Eyes: Pupils equal round and reactive to light, extra-ocular motions intact. Lids and lashes normal. Conjunctiva and sclera are non-icteric and not injected. Cornea within normal limits. Periorbital areas with no swelling, redness, or edema. ENT: Nares patent. No nasal discharge, no septal abnormalities noted. Tympanic membranes are normal and external auditory canals are clear. Oropharynx with no redness, swelling, or masses, exudates, or evidence of obstruction, uvula midline. Mucous membranes moist. Neck: Trachea midline, no thyromegaly or masses palpated, and no cervical lymphadenopathy. Supple, full range of motion without nuchal rigidity, or vertebral point tenderness. No Meningismus. Chest/axilla: Normal chest wall appearance and motion. Nontender with no deformity. No lesions are appreciated. Cardiovascular: Regular rate and rhythm with a normal S1 and S2. No gallops, murmurs, or rubs. Normal PMI, no JVD. No pulse deficits. Respiratory: Lungs have equal breath sounds bilaterally, clear to auscultation and percussion. No rales, rhonchi or wheezes noted. No increased work of breathing, no retractions or nasal flaring. Abdomen/GI: Soft, non-tender, with normal bowel sounds. No distension or tympany. No guarding or rebound. No evidence of tenderness throughout. Back: No spinal tenderness. No costovertebral tenderness. Full range of motion. Skin: Warm, dry with normal turgor. Normal color with no rashes, no lesions, and no evidence of cellulitis. MS/ Extremity: Pulses equal, no cyanosis. Neurovascular intact. Full, normal range of motion. Neuro: Awake and alert, GCS 15, oriented to person, place, time, and situation. Cranial nerves II-XII grossly intact. Motor strength 5/5 in all extremities. Sensory grossly intact. Cerebellar exam normal. Normal gait. Psych: Awake, alert, with orientation to person, place and time. Behavior, mood, and affect are within normal limits. 08:54 Musculoskeletal/extremity: DVT Exam: No signs of deep vein thrombosis. no pain, no swelling, no tenderness, negative Homans' sign noted on exam, no appreciated bluish discoloration, no erythema, no increased warmth. Vital Signs: 07:22 BP 122 / 88; Pulse 117; Resp 18; Temp 98.2; Pulse Ox 96% ; Weight 90.72 kg; Height 5 bp ft. 2 in. (157.48 cm); 07:57 BP 120 / 85; Pulse 95; Resp 20; Temp 97.9(TE); Pulse Ox 99% on R/A; mh5 08:34 BP 124 / 62; Pulse 77; Resp 17; Pulse Ox 98% ; bp 09:14 BP 122 / 80; Pulse 80; Resp 16; Temp 97.7(O); Pulse Ox 97% on R/A; mh5 10:01 BP 110 / 75; Pulse 82; Resp 16; Temp 97.6(O); Pulse Ox 97% on R/A; mh5 11:06 BP 118 / 83; Pulse 84; Resp 17; Temp 98.5; Pulse Ox 96% ; bp 07:22 Body Mass Index 36.58 (90.72 kg, 157.48 cm) bp MDM: 07:22 Patient medically screened. [facility] 08:59 Data reviewed: vital signs, nurses notes, lab test result(s), EKG, radiologic studies, gabriella plain films. 01/25 08:10 Order name: Basic Metabolic Panel; Complete Time: 10:22 [facility] 01/25 08:10 Order name: CBC with Diff; Complete Time: 10: [facility] 01/25 08:10 Order name: LFT's; Complete Time: 10: [facility] 01/25 08:10 Order name: Magnesium; Complete Time: 10: [facility] 01/25 08:10 Order name: NT PRO-BNP; Complete Time: 10: [facility] 01/25 08:10 Order name: PT-INR; Complete Time: 10:22 [facility] 01/25 08:10 Order name: Troponin (emerg Dept Use Only); Complete Time: 10:22 [facility] 01/25 08:10 Order name: XRAY Chest (1 view); Complete Time: 10:22 [facility] 01/25 08:10 Order name: EKG; Complete Time: 08:12 [facility] 01/25 08:10 Order name: Cardiac monitoring; Complete Time: 08:21 [facility] 01/25 08:10 Order name: EKG - Nurse/Tech; Complete Time: 08:21 [facility] 01/25 08:10 Order name: IV Saline Lock; Complete Time: 08:33 [facility] 01/25 08:10 Order name: TSH; Complete Time: 10: [facility] 01/25 08:10 Order name: Labs collected and sent; Complete Time: 08: [facility] 01/25 08:10 Order name: O2 Per Protocol; Complete Time: 08: [facility] 01/25 08:10 Order name: O2 Sat Monitoring; Complete Time: 08:21 [facility] Administered Medications: 08:30 Drug: NS 0.9% 500 ml Route: IV; Rate: bolus; Site: right antecubital; bp 09:30 Follow up: IV Status: Completed infusion; IV Intake: 500ml bp Disposition: 01/25/19 10:28 Discharged to Home. Impression: Cough, Palpitations. - Condition is Stable. - Discharge Instructions: Palpitations, Cough, Adult, [id number], Aspirin and Your Heart, Palpitations, [id number], Cough, Adult. - Medication Reconciliation Form, Thank You Letter, Antibiotic Education, Prescription Opioid Use form. - Follow up: Private Physician; When: 2 - 3 days; Reason: Recheck today's complaints, Continuance of care, Re-evaluation by your physician. - Problem is new. - Symptoms have improved. Signatures: Dispatcher [employer] Terence Small MD MD cha Peltier, Brian, RN RN bp Corrections: (The following items were deleted from the chart) 11:11 10:28 01/25/2019 10:28 Discharged to Home. Impression: Cough; Palpitations. Condition bp is Stable. Forms are Medication Reconciliation Form, Thank You Letter, Antibiotic Education, Prescription Opioid Use. Follow up: Private Physician; When: 2 - 3 days; Reason: Recheck today's complaints, Continuance of care, Re-evaluation by your physician. Problem is new. Symptoms have improved. gabriella
--- NOTE | 2019-01-25 10:29 | ER ---
Nurse's Notes [facility] Name: Rosa Isela Grant Age: 53 yrs Sex: Female : 1965 Arrival Date: 01/25/2019 Time: 07:08 Bed 20 Private MD: Diagnosis: Cough;Palpitations Presentation: 01/25 07:20 Presenting complaint: Patient states: PALPITATIONS SINCE MIDNIGHT. Transition of care: bp patient was not received from another setting of care. Onset of symptoms was January 25, 2019 at 00:00. Risk Assessment: Do you want to hurt yourself or someone else? Patient reports no desire to harm self or others. Initial Sepsis Screen: Does the patient meet any 2 criteria? No. Patient's initial sepsis screen is negative. Does the patient have a suspected source of infection? No. Patient's initial sepsis screen is negative. Care prior to arrival: None. 07:20 Method Of Arrival: Ambulatory bp 07:20 Acuity: BRISSA 2 bp Triage Assessment: 07:22 General: Appears in no apparent distress. comfortable, obese, Behavior is cooperative, bp appropriate for age, anxious. Pain: Denies pain. EENT: No deficits noted. Neuro: Level of Consciousness is awake, alert, obeys commands, Oriented to person, place, time, situation, Appropriate for age. Cardiovascular: No deficits noted. Respiratory: Airway is patent Respiratory effort is even, unlabored, Respiratory pattern is regular, symmetrical. GI: No signs and/or symptoms were reported involving the gastrointestinal system. : No signs and/or symptoms were reported regarding the genitourinary system. Derm: No deficits noted. Musculoskeletal: Circulation, motion, and sensation intact. Range of motion: intact in all extremities. 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 - Social history:: Smoking status: Patient/guardian denies using tobacco. - Ebola Screening: : No symptoms or risks identified at this time. - Family history:: not pertinent. Screenin:24 Abuse screen: Denies threats or abuse. Denies injuries from another. Nutritional bp screening: No deficits noted. Tuberculosis screening: No symptoms or risk factors identified. Fall Risk None identified. Assessment: 07:24 General: SEE TRIAGE NOTE. bp 08:33 Reassessment: ALL CURRENT ORDERS COMPLETED, RESULTS PENDING. bp 11:05 Reassessment: PT D/C HOME AMBULATORY, DX WITH PALPITATIONS. bp Vital Signs: 07:22 BP 122 / 88; Pulse 117; Resp 18; Temp 98.2; Pulse Ox 96% ; Weight 90.72 kg; Height 5 bp ft. 2 in. (157.48 cm); 07:57 BP 120 / 85; Pulse 95; Resp 20; Temp 97.9(TE); Pulse Ox 99% on R/A; mh5 08:34 BP 124 / 62; Pulse 77; Resp 17; Pulse Ox 98% ; bp 09:14 BP 122 / 80; Pulse 80; Resp 16; Temp 97.7(O); Pulse Ox 97% on R/A; mh5 10:01 BP 110 / 75; Pulse 82; Resp 16; Temp 97.6(O); Pulse Ox 97% on R/A; mh5 11:06 BP 118 / 83; Pulse 84; Resp 17; Temp 98.5; Pulse Ox 96% ; bp 07:22 Body Mass Index 36.58 (90.72 kg, 157.48 cm) bp ED Course: 07:08 Patient arrived in ED. ds1 07:20 Landry Mcintosh, RN is Primary Nurse. bp 07:21 Triage completed. bp 07:21 Terence Haskins MD is Attending Physician. gabriella 07:22 Arm band placed on. bp 07:24 Patient has correct armband on for positive identification. Bed in low position. Call bp light in reach. Side rails up X2. 07:37 EKG done, by pv installer tech. reviewed by Terence Haskins MD. sm3 07:53 Warm blanket given. lunchroom monitor on. Pulse ox on. NIBP on. mh5 08:25 X-ray completed. Portable x-ray completed in exam room. Patient tolerated procedure jb2 well. 08:27 XRAY Chest (1 view) In Process Unspecified. EDMS 08:30 Inserted saline lock: 20 gauge in right antecubital area, using aseptic technique. bp Blood collected. 11:07 No provider procedures requiring assistance completed. IV discontinued, intact. bp Administered Medications: 08:30 Drug: NS 0.9% 500 ml Route: IV; Rate: bolus; Site: right antecubital; bp 09:30 Follow up: IV Status: Completed infusion; IV Intake: 500ml bp Intake: 09:30 IV: 500ml; Total: 500ml. bp Outcome: 10:28 Discharge ordered by MD. quiroz 11:08 Patient : bp 11:08 Condition: stable 11:08 Discharge instructions given to patient, family, Instructed on discharge instructions, follow up and referral plans. Demonstrated understanding of instructions, follow-up care. 11:11 Patient left the ED. bp Signatures: Dispatcher [employer] EDMS Terence Haskins MD MD cha Buechter, Jesse jb2 Sanford, Demi ds1 Renita Tyler mh5 Landry Mcintosh, RN RN Neema Peacock 3 Corrections: (The following items were deleted from the chart) 07:58 07:57 BP 120 / 85; Pulse 95bpm; Resp 20bpm; Pulse Ox 99% RA; mh5 mh5
--- NOTE | 2019-01-25 11:10 | EKG ---
Test Date: 2019-01-25 Test Time: 07:27:52 Watch Manufacturing Supervisor: FIDELIA MEASUREMENT RESULTS: Intervals: Rate: 83 TN: 172 QRSD: 84 QT: 384 QTc: 451 [place]: P: 58 TN: 172 QRS: 54 T: 63 INTERPRETIVE STATEMENTS: Normal sinus rhythm Cannot rule out Anterior infarct, age undetermined Abnormal ECG Compared to ECG 07/18/2018 20:55:20 No significant changes Electronically Signed On 01-25-19 11:09:38 CDT by Josep Ayala
[2019-01-25 13:10] VITALS: BP 118/83; TEMP 98.5; O2SAT 96
== END 2019-01-25 11:11 | disposition home or self-care (01) ==
LOC: ER 07:06
DX: R05 Cough (principal); R00.2 Palpitations; I10 Essential (primary) hypertension; Z88.0 Allergy status to penicillin
CPT/HCPCS: 36415; 71045; 80048; 80076; 83735; 83880; 84443; 84484; 85025; 85610; 93005; 96360; 99285

== ENCOUNTER 2021-12-17 18:26 | Emergency (ER) | payer BC ==
--- OUTSIDE RECORDS SUMMARY | 2021-12-17 18:29 | XMS REPORT | Continuity of Care Document ---
:1965 Author Organization [facility] t Address [address] [place] [address] Care Team Providers Name Role Phone PCP, DOES NOT HAVE A Primary Care Physician Unavailable ELAINE Attending Clinician Unavailable YOHAN GRIFFITHS Attending Clinician Unavailable Yohan Griffiths MD Attending Clinician KAIL Attending Clinician Unavailable Castro HUDDLESTON Attending Clinician Unavailable Toan RN, S Attending Clinician Unavailable Only, Db Test Attending Clinician Unavailable Brody KHOURY Attending Clinician BRODY Attending Clinician Unavailable Doctor Unassigned, Name Attending Clinician Unavailable Flaquito KHOURY W Attending Clinician DARA Attending Clinician Unavailable MADRIGAL Attending Clinician Unavailable Tommy WEI Attending Clinician Unavailable WILMAN Attending Clinician Unavailable Lab, Fam Pob I Attending Clinician Unavailable Lazaro IMPREGNATING HELPER Attending Clinician LAZARO Attending Clinician Unavailable Payers Payer Name Policy Type Policy Number Effective Date Expiration Date S na BCBSTX PPO [id number] 2019 00:00:00 BCBS 2 [id number] 2020 00:00:00 Problems Condition Condition Condition Status Onset Resolution Last Treating Co mments Source Name Details Category Date Date Treatment Clinician Date DDD DDD Disease Active 2011-08 Elisha (rashmierat (degenerat 09-16 Se ybold jd disc jd disc 00:00: disease), disease), 00 lumbosacra lumbosacra l l OA OA Disease Active 2011-08 Elisha (osteoarth (osteoarth 09-16 Se ybold ritis of ritis of 00:00: the spine) the spine) 00 Mixed Mixed Disease Active 2010-08 Elisha anxiety anxiety 09-18 Seybold depressive depressive 00:00: disorder disorder 00 Essential Essential Disease Active 2010-08 Overview: Elisha hypertensi hypertensi 09-18 Formattin Seybold on, benign on, benign 00:00: g of this 00 note might be different from the original. controlle d, better Allergies, Adverse Reactions, Alerts Allergy Allergy Status Severity Reaction(s) Onset Inactive Treating Comm ents Source Name Type Date Date Clinician PENICILL DRUG Active Hives Univers IN INGREDI 2-20 ity of 00:00: [place] 00 [facility] Penicill Propensi Active Hives Univer s in ty to 2-20 ity of adverse 00:00: [place] reaction 00 Medical s Branch Penicill Propensi Active Hives Elisha in G ty to 2-20 Seybold adverse 00:00: reaction 00 s Penicill Propensi Active Hives 2010-08 Elisha ins ty to 0-24 Seybold adverse 00:00: reaction 00 s to drug Social History Social Habit Start Date Stop Date Quantity Comments Source History SDOH Elisha Gonzalezo ld Alcohol Frequency History SDOH Elisha Seybo ld Alcohol Std Drinks History SDOH Elisha Seybo ld Alcohol Binge Exposure to Yes Elisha goldsmith SARS-CoV-2 (event) Alcohol intake 2021-12-01 2021-12-01 Current drinker Kelse y Seybold 00:00:00 00:00:00 of alcohol (finding) Tobacco use and 2020-12-23 2020-12-23 Smokeless tobacco Ke lsey Seybold exposure 00:00:00 00:00:00 non-user Alcohol Comment 2020-12-23 2020-12-23 Socially Elisha Se ybold 00:00:00 00:00:00 Sex [birth year] At [birth year] Elisha Se ybold 00:00:00 00:00:00 Smoking Status Start Date Stop Date Source Never smoked tobacco Elisha Gonzalez old Medications Ordered Filled Start Stop Current Ordering Indication Dosage Frequency Signature Comments Components Source Medication Medication Date Date Medication? Clinician (SIG) Name Name Nitrofurant Yes [id number] 100mg Take 1 Elisha oin Monohyd 4-12 capsule Seybo ld Macro 100 00:00: (100 mg MG oral 00 total) by Capsule mouth in the morning and 1 capsule (100 mg total) in the evening. BIOTIN OR 2021-0 Yes Take by Kelse y 3-10 mouth Seybold 10:41: 34 BIOTIN OR 2021-0 Yes Take by Kelse y 3-10 mouth Seybold 10:41: 34 Azithromyci 2021- Yes [id number] Take 2 Elisha n 250 MG 3-10 tablets by Seybo ld oral Tablet 00:00: mouth on day 1 then 1 tablet by mouth daily for 4 days thereafter . methylPREDN 2021- Yes [id number] 1{tanika} Take 1 tanika Elisha ISolone 4 3-10 by mouth Seybol d MG oral 00:00: See Admin Tablet 00 Instructio Therapy ns Use as Pack directed Azithromyci 2021-0 Yes [id number] Take 2 Elisha n 250 MG 3-10 tablets by Seybo ld oral Tablet 00:00: mouth on day 1 then 1 tablet by mouth daily for 4 days thereafter . methylPREDN 2021-0 Yes [id number] 1{tanika} Take 1 tanika Elisha ISolone 4 3-10 by mouth Seybol d MG oral 00:00: See Admin Tablet 00 Instructio Therapy ns Use as Pack directed Ketorolac 2021-0 2021- No [id number] 60mg Ke carlosey Tromethamin 10-26 Seybold e (TORADOL) 22:45: 22:45 60 mg/2 mL 00 :00 Ketorolac 2021-0 2021- No [id number] 60mg 60 mg, Elisha Tromethamin 10-26 intramuscu S eybold e (TORADOL) 22:45: 22:45 lar, ONCE, 60 mg/2 mL 00 :00 On Tue10/26/21 at 1645, For 1 dose BIOTIN OR 2021-0 Yes Take by Kelse y 3-07 mouth Seybold 16:03: 10 Meloxicam 2021- Yes [id number] 7.5mg Take 1 Elisha 7.5 MG oral 3-07 tablet Seybol d Tablet 00:00: (7.5 mg 00 total) by mouth in the morning. Cefdinir 2021-0 Yes [id number] 300mg Take 1 Ke lsey 300 MG oral 3-07 capsule Seybo ld Capsule 00:00: (300 mg 00 total) by mouth in the morning and 1 capsule (300 mg total) in the evening. Meloxicam 2021-0 Yes [id number] 7.5mg Take 1 Elisha 7.5 MG oral 3-07 tablet Seybol d Tablet 00:00: (7.5 mg 00 total) by mouth in the morning. Cefdinir 2021-0 Yes [id number] 300mg Take 1 Ke lsey 300 MG oral 3-07 capsule Seybo ld Capsule 00:00: (300 mg 00 total) by mouth in the morning and 1 capsule (300 mg total) in the evening. Meloxicam 2021-0 Yes [id number] 7.5mg Take 1 Elisha 7.5 MG oral 3-07 tablet Seybol d Tablet 00:00: (7.5 mg 00 total) by mouth in the morning. Cefdinir 2021-0 Yes [id number] 300mg Take 1 Ke lsey 300 MG oral 3-07 capsule Seybo ld Capsule 00:00: (300 mg 00 total) by mouth in the morning and 1 capsule (300 mg total) in the evening. Nitrofurant 0 Yes [id number] 100mg Take 1 Elisha oin Monohyd 1-20 capsule Seybo ld Macro 100 00:00: (100 mg MG oral 00 total) by Capsule mouth 2 times daily Nitrofurant 2021-0 Yes [id number] 100mg Take 1 Elisha oin Monohyd 1-20 capsule Seybo ld Macro 100 00:00: (100 mg MG oral 00 total) by Capsule mouth 2 times daily Nitrofurant 2021-0 2021- No [id number] 100mg Take 1 Elisha oin Monohyd 1-20 03-10 capsule Seyb old Macro 100 00:00: 00:00 (100 mg MG oral 00 :00 total) by Capsule mouth 2 times daily Meloxicam 2020-08- No [id number] TAKE 1 Elisha 15 MG oral 2-16 01-20 TABLET(15 Sey bold Tablet 00:00: 00:00 MG) BY 00 :00 MOUTH DAILY Meloxicam 2020-08 Yes [id number] TAKE 1 K elsey 15 MG oral 1-19 TABLET(15 Seyb old Tablet 00:00: MG) BY 00 MOUTH DAILY Doxycycline 2020-08 Yes [id number] 100mg Take 1 Elisha Hyclate 100 1-18 tablet Seybol d MG oral 00:00: (100 mg Tablet 00 total) by mouth 2 times daily Doxycycline 2020-08- No [id number] 100mg Take 1 Elisha Hyclate 100 1-18 01-20 tablet Seybo ld MG oral 00:00: 00:00 (100 mg Tablet 00 :00 total) by mouth 2 times daily BIOTIN OR 2020-08 Yes Take by Kelse y 1-10 mouth Seybold 14:51: 37 BIOTIN OR 2020-08 Yes Take by Kelse y 1-10 mouth Seybold 14:51: 37 BIOTIN OR 2020-08 Yes Take by Kelse y 1-10 mouth Seybold 14:51: 37 Azithromyci 2020-08- No [id number] Take 2 Elisha n 250 MG 1-10 11-16 tablets by Seyb old oral Tablet 00:00: 05:59 mouth on 00 :00 day 1 then 1 tablet by mouth daily for 4 days thereafter . Permethrin 2020-08 Yes [id number] Apply to Elisha 5 % apply 0-26 affected Seybol d externally 00:00: area and Cream 00 leave on for 8-14 hours. Repeat for 7 days. Permethrin 2020-08 Yes [id number] Apply to Elisha 5 % apply 0-26 affected Seybol d externally 00:00: area and Cream 00 leave on for 8-14 hours. Repeat for 7 days. Permethrin 2020-08 Yes [id number] Apply to Elisha 5 % apply 0-26 affected Seybol d externally 00:00: area and Cream 00 leave on for 8-14 hours. Repeat for 7 days. Permethrin 2020-08 Yes [id number] Apply to Elisha 5 % apply 0-26 affected Seybol d externally 00:00: area and Cream 00 leave on for 8-14 hours. Repeat for 7 days. Permethrin 2020-08 Yes [id number] Apply to Elisha 5 % apply 0-26 affected Seybol d externally 00:00: area and Cream 00 leave on for 8-14 hours. Repeat for 7 days. Permethrin 2020-08 Yes [id number] Apply to Elisha 5 % apply 0-26 affected Seybol d externally 00:00: area and Cream 00 leave on for 8-14 hours. Repeat for 7 days. BIOTIN OR 2020-08 Yes Take by Kelse y 0-19 mouth Seybold 08:34: 51 Meloxicam 2020-08 Yes [id number] 15mg Take 1 K elsey 15 MG oral 0-19 tablet (15 Sey bold Tablet 00:00: mg total) 00 by mouth daily Meloxicam 2020-08 Yes [id number] 15mg Take 1 K elsey 15 MG oral 0-19 tablet (15 Sey bold Tablet 00:00: mg total) 00 by mouth daily TRIMETHOPRI 2020-08- No [id number] 1{tbl} Take 1 Elisha M-SULFAMETH 0-07 10-11 tablet by Se ybold OXAZOLE 00:00: 04:59 mouth 2 800-160 MG 00 :00 times oral Tablet daily for 3 days Paroxetine 2020- No [id number] 20mg Take 1 Elisha HCl 20 MG 8-24 -07 tablet (20 Sey bold oral Tablet 00:00: 00:00 mg total) 00 :00 by mouth every morning BIOTIN OR Yes Take by Kelse y 8-17 mouth Seybold 07:59: 07 Phenazopyri 2020- No [id number] 200mg [id number] Take 1 Elisha dine HCl 6-30 - [id number] tablet Se ybold 200 MG oral 00:00: 00:00 3D (200 mg Tablet 00 :00 total) by mouth 3 times daily as needed for pain hydrOXYzine 2020- No [id number] 25mg [id number] Take 1 Elisha HCl 25 MG 6-22 - [id number] tablet (25 Seybold oral Tablet 00:00: 00:00 3D mg total) 00 :00 by mouth 3 times daily as needed for itching Multiple 2018-08 Yes Elisha Vitamin 0-04 Seybold (MULTI-ANKIT 00:00: MINS OR) 00 Multiple 2019- Yes Elisha Vitamin 0-04 Seybold (MULTI-ANKIT 00:00: MINS OR) 00 Multiple 2018-08 Yes Elisha Vitamin 0-04 Seybold (MULTI-ANKIT 00:00: MINS OR) 00 Multiple 2018-08 Yes Elisha Vitamin 0-04 Seybold (MULTI-ANKIT 00:00: MINS OR) 00 Multiple 2018-08 Yes Elisha Vitamin 0-04 Seybold (MULTI-ANKIT 00:00: MINS OR) 00 Multiple 2018-08 Yes Elisha Vitamin 0-04 Seybold (MULTI-ANKIT 00:00: MINS OR) 00 Multiple 2018-08 Yes Elisha Vitamin 0-04 Seybold (MULTI-ANKIT 00:00: MINS OR) 00 Multiple 2018-08 Yes Elisha Vitamin 0-04 Seybold (MULTI-ANKIT 00:00: MINS OR) 00 aspirin Yes 81mg Take 81 mg Univ ers (ASPIRIN 6-05 by mouth ity of LOW DOSE) 01:40: daily. [place] 81 mg EC 40 Medical tablet Branch AMLODIPINE Yes Take by Uni vers BESYLATE 6-05 mouth. ity of (AMLODIPINE 01:17: [place] ORAL) Medical Branch aspirin Yes 81mg Take 81 mg Univ ers (ASPIRIN 6-04 by mouth ity of LOW DOSE) 20:40: daily. [place] 81 mg EC 40 Medical tablet Branch aspirin Yes 81mg Take 81 mg Univ ers (ASPIRIN 6-04 by mouth ity of LOW DOSE) 20:40: daily. [place] 81 mg EC 40 Medical tablet Branch aspirin Yes 81mg Take 81 mg Univ ers (ASPIRIN 6-04 by mouth ity of LOW DOSE) 20:40: daily. [place] 81 mg EC 40 Medical tablet Branch AMLODIPINE Yes Take by Uni vers BESYLATE 6-04 mouth. ity of (AMLODIPINE 20:17: [place] ORAL) Medical Branch AMLODIPINE Yes Take by Uni vers BESYLATE 6-04 mouth. ity of (AMLODIPINE 20:17: [place] ORAL) 03 Medical Branch AMLODIPINE Yes Take by Uni vers BESYLATE 6-04 mouth. ity of (AMLODIPINE 20:17: [place] ORAL) Medical Branch bacitracin Yes [id number] Apply to Univers 500 6-04 affected ity of unit/gram 00:00: area(s) 3 [place] as ointment 00 (three) Medical times Branch daily. hydrOXYzine 2018-0 Yes [id number] 25mg Take 1 Univers 25 mg 6-04 tablet by ity of tablet 00:00: mouth [place] 00 every 6 Medical (six) Branch hours as needed for Itching. bacitracin 2018-0 Yes [id number] Apply to Univers 500 6-04 affected ity of unit/gram 00:00: area(s) 3 [place] as ointment 00 (three) Medical times Branch daily. hydrOXYzine 2018-0 Yes [id number] 25mg Take 1 Univers 25 mg 6-04 tablet by ity of tablet 00:00: mouth [place] 00 every 6 Medical (six) Branch hours as needed for Itching. bacitracin 2018-0 Yes [id number] Apply to Univers 500 6-04 affected ity of unit/gram 00:00: area(s) 3 [place] as ointment 00 (three) Medical times Branch daily. hydrOXYzine 2018-0 Yes [id number] 25mg Take 1 Univers 25 mg 6-04 tablet by ity of tablet 00:00: mouth [place] 00 every 6 Medical (six) Branch hours as needed for Itching. bacitracin 2018-0 Yes [id number] Apply to Univers 500 6-04 affected ity of unit/gram 00:00: area(s) 3 [place] as ointment 00 (three) Medical times Branch daily. hydrOXYzine 2018-0 Yes [id number] 25mg Take 1 Univers 25 mg 6-04 tablet by ity of tablet 00:00: mouth [place] 00 every 6 Medical (six) Branch hours as needed for Itching. Immunizations Ordered Immunization Filled Immunization Date Status Commen ts Source Name Name Covid-19 Vaccine 2020-12-03 Completed Elisha cannon ([employer]), Mrna-lnp, 00:00:00 Shay Protein, Pf, 30mcg/0.3ml,IM Covid-19 Vaccine 2020-12-03 Completed Elisha cannon ([employer]), Mrna-lnp, 00:00:00 Shay Protein, Pf, 30mcg/0.3ml,IM Covid-19 Vaccine 2020-12-03 Completed Elisha cannon ([employer]), Mrna-lnp, 00:00:00 Shay Protein, Pf, 30mcg/0.3ml,IM Covid-19 Vaccine 2020-12-03 Completed Elisha S eybold ([facility]), Mrna-lnp, 00:00:00 Shay Protein, Pf, 30mcg/0.3ml,IM Covid-19 Vaccine 2020-12-03 Completed Elisha S eybold ([facility]), Mrna-lnp, 00:00:00 Shay Protein, Pf, 30mcg/0.3ml,IM Covid-19 Vaccine 2020-12-03 Completed Elisha S eybold ([facility]), Mrna-lnp, 00:00:00 Shay Protein, Pf, 30mcg/0.3ml,IM Covid-19 Vaccine 2020-12-03 Completed Elisha S eybold ([facility]), Mrna-lnp, 00:00:00 Shay Protein, Pf, 30mcg/0.3ml,IM Covid-19 Vaccine 2020-12-03 Completed Elisha S eybold ([facility]), Mrna-lnp, 00:00:00 Shay Protein, Pf, 30mcg/0.3ml,IM Covid-19 Vaccine 2020-11-11 Completed Elisha S eybold ([facility]), Mrna-lnp, 00:00:00 Shay Protein, Pf, 30mcg/0.3ml,IM Covid-19 Vaccine 2020-11-11 Completed Elisha S eybold ([facility]), Mrna-lnp, 00:00:00 Shay Protein, Pf, 30mcg/0.3ml,IM Covid-19 Vaccine 2020-11-11 Completed Elisha S eybold ([facility]), Mrna-lnp, 00:00:00 Shay Protein, Pf, 30mcg/0.3ml,IM Covid-19 Vaccine 2020-11-11 Completed Elisha S eybold ([employer]), Mrna-lnp, 00:00:00 Shay Protein, Pf, 30mcg/0.3ml,IM Covid-19 Vaccine 2020-11-11 Completed Elisha S eybold ([facility]), Mrna-lnp, 00:00:00 Shay Protein, Pf, 30mcg/0.3ml,IM Covid-19 Vaccine 2020-11-11 Completed Elisha S eybold ([employer]), Mrna-lnp, 00:00:00 Shay Protein, Pf, 30mcg/0.3ml,IM Covid-19 Vaccine 2020-11-11 Completed Elisha cannon ([employer]), Mrna-lnp, 00:00:00 Shay Protein, Pf, 30mcg/0.3ml,IM Covid-19 Vaccine 2020-11-11 Completed Elisha cannon ([employer]), Mrna-lnp, 00:00:00 Shay Protein, Pf, 30mcg/0.3ml,IM Tdap- (Boostrix, 2019-07-03 Completed Elisha cannon Adacel) 00:00:00 Tdap- (Boostrix, 2019-07-03 Completed Elisha cannon Adacel) 00:00:00 Tdap- (Boostrix, 2019-07-03 Completed Elihsa Rod eykait Adacel) 00:00:00 Tdap- (Boostrix, 2019-07-03 Completed Elisha Rod eyboanthony Adacel) 00:00:00 Tdap- (Boostrix, 2019-07-03 Completed Elisha Rod eyboanthony Adacel) 00:00:00 Tdap- (Boostrix, 2019-07-03 Completed Elisha Rod eybold Adacel) 00:00:00 Tdap- (Boostrix, 2019-07-03 Completed Elisha Rod eyboanthony Adacel) 00:00:00 Tdap- (Boostrix, 2019-07-03 Completed Elisha Rod eyboanthony Adacel) 00:00:00 Vital Signs Vital Name Observation Time Observation Value Comments Source Systolic blood pressure 2021-10-29 16:40:00 134 mm[Hg] Elisha Bernal Diastolic blood 2021-10-29 16:40:00 73 mm[Hg] Jorge Bernal pressure Heart rate 2021-10-29 16:40:00 77 /min Elisha cannon Body temperature 2021-10-29 16:40:00 36.72 Clover Sabina Bernal Respiratory rate 2021-10-29 16:40:00 16 /min Sabina Bernal Body height 2021-10-29 16:40:00 157.5 cm Elisha S eybold Body weight 2021-10-29 16:40:00 57.97 kg Elisha S eybold BMI 2021-10-29 16:40:00 23.37 kg/m2 Elisha S eybold Systolic blood pressure 2021-10-26 21:57:00 136 mm[Hg] Elisha Seybold Diastolic blood 2021-10-26 21:57:00 90 mm[Hg] Kelse y Seybold pressure Heart rate 2021-10-26 21:57:00 100 /min Elisha S eybold Body temperature 2021-10-26 21:57:00 36.89 Clover Sabina ey Seybold Respiratory rate 2021-10-26 21:57:00 16 /min Sabina ey Seybold Body height 2021-10-26 21:57:00 157.5 cm Elisha S eybold Body weight 2021-10-26 21:57:00 56.7 kg Elisha S eybold BMI 2021-10-26 21:57:00 22.86 kg/m2 Elisha S eybold Body temperature 2021 20:50:00 37.11 Clover Sabina ey Seybold Respiratory rate 2021 20:50:00 14 /min Sabina ey Seybold Body height 2021 20:50:00 157.5 cm Elisha S eybold Body weight 2021 20:50:00 57.879 kg Elisha S eybold BMI 2021 20:50:00 23.34 kg/m2 Elisha S eybold Oxygen saturation in 2021 20:50:00 99 /min Elisha Bowenybsofia Arterial blood by Pulse oximetry Systolic blood pressure 2021-06-09 13:29:00 118 mm[Hg] Elisha Seybold Diastolic blood 2021-06-09 13:29:00 72 mm[Hg] Kelse y Seybold pressure Heart rate 2021-06-09 13:29:00 87 /min Elisha S eybold Body temperature 2021-06-09 13:29:00 36.56 Clover Sabina ey Seybold Respiratory rate 2021-06-09 13:29:00 12 /min Sabina ey Seybold Body height 2021-06-09 13:29:00 157.5 cm Elisha cannon Body weight 2021-06-09 13:29:00 58.06 kg Elisha cannon BMI 2021-06-09 13:29:00 23.41 kg/m2 Elisha cannon Systolic blood pressure 2021-05-28 13:16:00 110 mm[Hg] Elisha Bernal Diastolic blood 2021-05-28 13:16:00 76 mm[Hg] Tavose y ybsofia pressure Heart rate 2021-05-28 13:16:00 64 /min Elisha cannon Body temperature 2021-05-28 13:16:00 36.89 Clover Sabina Bernal Respiratory rate 2021-05-28 13:16:00 20 /min Sabina Bernal Body weight 2021-05-28 13:16:00 58.968 kg Elisha cannon BMI 2021-05-28 13:16:00 23.78 kg/m2 Elisha cannon Procedures Procedure Date / Time Performing Clinician Source Performed [facility] PAT[facility] FINANCIAL 2021-09-01 01:13:40 Doctor Unassigned, [facility] POLICY [facility] NO SHOW OR MISSED 2021-09-01 01:13:26 Doctor Unassigned, [facility] APPOINTMENT POLICY [place] [facility] ACKNOWLEDGEMENT CONSENT/REFUSAL FOR 2021-09-01 01:13:14 Doctor [place], [facility] DIAGNOSIS AND TREATMENT [facility] ASSIGNMENT OF BENEFITS 2021-09-01 01:13:02 Doctor Unassigned, [facility] URINALYSIS NONAUTO W/O 2021-05-28 13:23:00 AgaSven SCOPE URINE CULTURE, ROUTINE 2021-05-28 13:19:00 AgaSven y Seybold URINE CULTURE, ROUTINE 2021-05-28 13:19:00 AgaSven Seybold RESULT Encounters Start End Encounter Admission Attending Care Care Encounter Source Date/Time Date/Time Type Type Clinicians Facility Department ID 2021-06-10 Outpatient ELAINE [facility] [id number] [place] 15:00:50 [facility] 2020-12-27 Outpatient ELAINE, [facility] [id number] [place] 04:16:00 [facility] 2021-12-11 2021-12-11 Outpatient ELISHA LIZ [id number] Elisha 09:00:00 09:00:00 Seybol d 2021-12-01 2021-12-01 Outpatient ELISHA GRIFFITHS [id number] Elisha 10:30:00 10:30:00 JOSIE Seybol d 2021-12-01 2021-12-01 Telemedici Conner Griffiths [id number] Elisha 09:15:00 09:15:00 ne Josie Jose [id number] Se ybold Somogyi [id number] 2021-11-18 2021-11-18 Outpatient ELISHA BASS [id number] Elisha 00:00:00 00:00:00 SATYA Seybol d 2021-11-18 2021-11-18 Outpatient ELISHA BASS [id number] Elisha 00:00:00 00:00:00 SATYA Seybol d 2021-10-29 2021-10-29 Office Conner Griffiths [id number] Elisha 10:45:00 11:00:00 Visit Josie Jose [id number] Se ybold Somogyi [id number] 2021-10-26 2021-10-26 Office Conner Griffiths [id number] Elisha 16:15:00 16:30:00 Visit Josie Jose [id number] Se ybold Somogyi [id number] 2021-09-14 2021-09-14 Outpatient SVEN HUDDLESTON [id number] Elisha 00:00:00 00:00:00 Seybol d 2021-09-10 2021-09-10 Telemedici Conner GRIFFITHS [id number] Elisha 11:00:00 11:00:00 ne JOSIE Jose [id number] Se ybold [id number] 2021-09-01 2021-09-01 Telephone ANDREA Joya [id number] Univers 00:00:00 00:00:00 Katelynn TOMPKINS [id number] ity of [facility] [id number] [place] as [id number] [facility] [address] [place] 2021-08-31 2021-08-31 Laboratory Only, Ang Db Test [facility] 1.2.8 [id number] [id number] Univers 19:45:00 20:00:00 Only [place]dy [facility] [id number] ity of [place] [id number] [place] as RAMEZ?BLEA [id number] [address] MEDICAL OFFICE BUILDING 2021-08-31 2021-08-31 Outpatient R [facility] [id number] Univers 19:45:00 19:45:00 [id number] ity of [facility] 2021-08-31 2021-08-31 [facility] [id number] Univers 19:45:00 19:42:37 VITO ity [facility] 2021-08-31 2021-08-31 Orders Doctor MENDEZ [id number] Univers 00:00:00 00:00:00 Only Unassigned, TURNER [id number] ity of [place] [facility] [id number] [place] as [phone] [address] 2021-08-18 2021-08-18 Outpatient ELISHA GRIFFITHS [id number] Elisha 00:00:00 00:00:00 JOSIE Seybol d 2021-08-06 2021-08-06 Outpatient SVEN HUDDLESTON [id number] Elisha 00:00:00 00:00:00 Seybol d 2021-07-21 2021-07-21 Telemedici Conner GRIFFITHS [id number] Elisha 10:30:00 10:30:00 ne JOSIE Damon [id number] Se ybold [id number] 2021-07-10 2021-07-10 Outpatient FRANK HUDDLESTONCan LIZ [id number] Elisha 00:00:00 00:00:00 Seybol d 2021-07-09 2021-07-09 Outpatient ELISHA GRIFFITHS [id number] Elisha 00:00:00 00:00:00 JOSIE Seybol d 2021-07-09 2021-07-09 Outpatient ELISHA GRIFFITHS [id number] Elisha 00:00:00 00:00:00 JOSIE Seybol d 2021 2021 Office Robert, Conner [id number] Elisha 14:40:55 15:10:55 Visit Josie Damon [id number] Se ybold Somogyi [id number] 2021-06-16 2021-06-16 Outpatient FLAQUITO, SVENCan LIZ [id number] Elisha 00:00:00 00:00:00 Seybol d 2021-06-16 2021-06-16 Outpatient FLAQUITO SVEN LIZ [id number] Elisha 00:00:00 00:00:00 Seybol d 2021-06-16 2021-06-16 Outpatient SERAFIN HUDDLESTONEDGAR LIZ [id number] Elisha 00:00:00 00:00:00 Seybol d 2021-06-12 2021-06-12 Outpatient FLAQUITO SVEN LIZ [id number] Elisha 00:00:00 00:00:00 Seybol d 2021-06-09 2021-06-09 Office Flaquito Sven Prieto [id number] Elisha 08:24:44 08:39:44 Visit Castro Damon [id number] Se ybold [id number] 2021-05-28 2021-05-28 Office Serafin Huddlestonedgar Prieto [id number] Elisha 08:00:44 08:15:44 Visit Castro Jose [id number] Se emre [id number] [id number] 2021-04-29 2021-04-29 Outpatient ELISHA DIAMOND [id number] Elisha 09:00:00 09:00:00 ANTONIO Seybol d 2021-04-13 2021-04-13 Outpatient ELISHA MADRIGAL [id number] Elisha 08:30:00 08:30:00 HARLEEN Seyb old 2021-04-13 2021-04-13 Outpatient ELISHA GRIFFITHS [id number] Elisha 00:00:00 00:00:00 JOSIE Seybol d 2021-04-07 2021-04-07 Outpatient ELISHA GRIFFITHS [id number] Elisha 08:00:00 08:00:00 JOISE Seybol d 2021-04-01 2021-04-01 Outpatient ELISHA LIZ [id number] Elisha 14:30:00 14:30:00 Seybol d 2021-04-01 2021-04-01 Outpatient ELISHA WEI [id number] Elisha 00:00:00 00:00:00 SATYA Seybol d 2021-03-20 2021-03-20 Outpatient ELISHA LIZ [id number] Elisha 13:40:00 13:40:00 Seybol d 2021-03-05 2021-03-05 Outpatient ENRIKE STOVALLY ELISHA LIZ [id number] Elisha 00:00:00 00:00:00 Seybol d 2021-02-24 2021-02-24 Outpatient ELISHA WEI [id number] Elisha 09:30:00 09:30:00 SATYA Seybol d 2020-09-01 2020-09-01 Laboratory Lab, Adc Fam Pob I [facility] 1.2. [id number] [id number] Univers 18:28:45 18:48:45 Only [place] [id number] ity of [place] [id number] [place] as Professio [id number] Il dical nal [address] [place] Office [facility] 2020-09-01 2020-09-01 Outpatient R [facility] [id number] Univers 18:40:00 18:40:00 [id number] [facility] 2020-09-01 2020-09-01 Outpatient R [facility] [id number] Univers 18:40:00 18:40:00 ARLINE [facility] 2019-05-22 2019-05-22 Outpatient MHSE YUAN [id number] MH 15:15:00 15:15:[address] 2019-04-03 2019-04-03 Outpatient [facility] YUAN 7501 MH 08:05:00 08:05:[address] [facility] 2019-02-16 2019-02-16 Outpatient MHSE MHSE [id number] MH 08:39:00 08:39:[address] [facility] Results Test Description Test Time Test Comments Results Result Comments Source URINALYSIS NONAUTO W/O SCOPE 2021-05-28 13:23:00 Test Item Value Reference Range Interpretation Comme nts UD KETONES (test code = small 5-160 756348) UD GLUCOSE (test code = neg 100-2000 315570) UD PROTEIN (test code = 300 mg/dL Trace - 2,000 741243) UD LEUKOCYTES (test code = large Trace - Large @ 2 168146) min. UD NITRITE (test code = Neg. - Pos. @ 60 750548) sec. UD UROBILINOGEN (test code = 0.2 mg/dL 0.2-8 136409) UD PH (test code = 505297) See_Comment [Automated message] The system which ge nerated this result tra nsmitted reference range : 5.0 - 8.5 @ 60 sec.. The reference range was not used to interpr et this result as normal/abnormal . UD BLOOD (test code = 829555) large Neg. - Large @ 60 sec. UD SPECIFIC GRAVITY (test See_Comment [ Automated message] The code = 196376) system which generated this result tra nsmitted reference range : 1.000 - 1.030 @ 45 sec. . The reference range was not used to interpr et this result as normal/abnormal . UD BILIRUBIN (test code = neg Neg. - Large @ 45 477177) sec. Lab Interpretation (test code Abnormal = 01165-5) Elisha Bernal
[2021-12-17 19:42] LABS: Absolute Lymphocytes (CBC) 1.8 K/uL (0.7-4.9); Hematocrit 39.6 % (36.0-45.0); Lymphocytes % 33.2 % (15.3-44.8); MPV 6.9 fL (7.6-11.3); RBC Red Blood Cell Count 4.31 M/uL (3.86-4.86)
[2021-12-17 19:48] LABS: Protime INR 1.04
[2021-12-17] MEDS ORDERED: ACETAMINOPHEN 500 MG TAB ONE (19:50)
[2021-12-17 20:09] LABS: ALT/SGPT 21 U/L (12-78); AST/SGOT 14 U/L (15-37); Albumin 3.7 g/dL (3.4-5.0); Alkaline Phosphatase 97 U/L (45-117); BUN Blood Urea Nitrogen 10 mg/dL (7-18); Bicarbonate 30 mmol/L (21-32); Bilirubin Direct 0.2 mg/dL (0-0.2); Glucose Level 102 mg/dL (74-106); Magnesium 2.2 mg/dL (1.8-2.4); NT PRO-BNP 120 pg/mL (<125); Potassium 3.4 mmol/L (3.5-5.1); Protein, Total 7.3 g/dL (6.4-8.2); Sodium Level 143 mmol/L (136-145); Troponin High Sensitivity 3.5 pg/mL (<58.9)
--- NOTE | 2021-12-17 20:10 | RAD REPORT ---
EXAM DESCRIPTION: CT - Head Brain Wo Cont - 12/17/2021 8:02 pm CLINICAL HISTORY: Headache, uncomplicated Headache, drowsiness COMPARISON: Head Brain Wo Cont dated 10/26/2018 TECHNIQUE: All CT scans are performed using dose optimization technique as appropriate and may inclu de automated exposure control or mA/KV adjustment according to patient size. FINDINGS: No intracranial hemorrhage, hydrocephalus or extra-axial fluid collection.No areas of brai n edema or evidence of midline shift. The paranasal sinuses and mastoids are clear. The calvarium is intact. IMPRESSION: No acute intracranial abnormality.
--- NOTE | 2021-12-17 20:37 | RAD REPORT ---
EXAM DESCRIPTION: RAD - Chest Single View - 12/17/2021 8:28 pm CLINICAL HISTORY: CHEST PAIN Chest pain. COMPARISON: Chest Single View dated 01/25/2019; Chest Pa And Lat (2 Views) dated 07/18/2018; Chest Pa And Lat (2 Views) dated 03/30/2018 FINDINGS: Portable technique limits examination quality. The lungs are grossly clear. The heart is normal in size. No displaced fractures. IMPRESSION: No acute intrathoracic process suspected.
[2021-12-17] MEDS ORDERED: POTASSIUM CL SA 10 MEQ TAB PO ONE (21:38)
--- NOTE | 2021-12-17 21:42 | ER ---
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 Started on bisoprolol/HCTZ, still having high BP. + CALLES. Coronavirus screen: Vaccine status: Patient reports receiving the 2nd dose of the covid vaccine. Client denies travel out of the [place] in the last 14 days. At this time, the client does not indicate any symptoms associated with coronavirus-19. Ebola Screen: Patient denies travel to an Ebola-affected area in the 21 days before illness onset. Initial Sepsis Screen: Does the patient meet any 2 criteria? No. Patient's initial sepsis screen is negative. Does the patient have a suspected source of infection? No. Patient's initial sepsis screen is negative. Risk Assessment: Do you want to hurt yourself or someone else? Patient reports no desire to harm self or others. Onset of symptoms was December 14, 2021. 18:42 Method Of Arrival: Ambulatory ld1 18:42 Acuity: BRISSA 3 ld1 Triage Assessment: 18:45 General: Appears uncomfortable, Behavior is cooperative, appropriate for age. Pain: ld1 Complains of pain in head Quality of pain is described as aching, throbbing. Neuro: Reports headache high BP. Cardiovascular: Reports palpitations, on Tuesday. Historical: - Allergies: 18:44 PENICILLINS; ld1 - PMHx: 18:44 Cholelithiasis; Hypertension; ld1 - PSHx: 18:44 Appendectomy; Cholecystectomy; gastric sleeve; ld1 - Immunization history:: Client reports receiving the 2nd dose of the Covid vaccine, Flu vaccine status is unknown. - Social history:: Smoking status: Patient/guardian denies using tobacco, Stopped _ months ago .1. Screenin:09 Abuse screen: Denies threats or abuse. Denies injuries from another. Nutritional ab2 screening: No deficits noted. Tuberculosis screening: No symptoms or risk factors identified. Fall Risk None identified. Assessment: 19:08 General: Appears in no apparent distress. comfortable, Behavior is calm, cooperative, ab2 appropriate for age. Pain: Denies pain. Neuro: Level of Consciousness is awake, alert, obeys commands, Oriented to person, place, time, situation, Appropriate for age Shop Coordinator are equal bilaterally Moves all extremities. Gait is steady, Speech is normal. Cardiovascular: No deficits noted. Reports palpitations, Denies chest pain, shortness of breath, Heart tones S1 S2 present Patient's skin is warm and dry. Respiratory: Airway is patent Respiratory effort is even, unlabored, Respiratory pattern is regular, symmetrical, Breath sounds are clear bilaterally. GI: No deficits noted. No signs and/or symptoms were reported involving the gastrointestinal system. Abdomen is round non-distended, Bowel sounds present X 4 quads. : No deficits noted. No signs and/or symptoms were reported regarding the genitourinary system. EENT: No deficits noted. No signs and/or symptoms were reported regarding the EENT system. Derm: No deficits noted. Skin is intact, is healthy with good turgor, Skin is pink, warm \T\ dry. 20:27 Reassessment: Patient appears in no apparent distress at this time. Pt resting ab2 comfortably in bed at this time. Lights dimmed. Blankets provided. Pt denies any further needs at this time. 21:20 Reassessment: Patient appears in no apparent distress at this time. Awaiting results ab2 for disposition. Pt denies any needs at this time. Vital signs remain stable. Vital Signs: 18:42 BP 169 / 106; Pulse 70; Resp 15; Temp 98.3; Pulse Ox 100% ; Weight 56.7 kg; Height 5 ld1 ft. 2 in. (157.48 cm); Pain 4/10; 19:10 BP 159 / 101; Pulse 73; Resp 17; Pulse Ox 99% on R/A; ab2 20:27 BP 149 / 95; Pulse 70; Resp 17; Pulse Ox 99% on R/A; ab2 21:39 BP 164 / 100; Pulse 73; Resp 17; Pulse Ox 100% on R/A; ab2 18:42 Body Mass Index 22.86 (56.70 kg, 157.48 cm) ld1 ED Course: 18:28 Patient arrived in ED. mr 18:44 Triage completed. ld1 18:45 Arm band placed on. ld1 18:52 Christopher Turpin is Primary Nurse. ab2 19:02 Erik Choudhury MD is Attending Physician. mh7 19:09 Patient has correct armband on for positive identification. Bed in low position. Call ab2 light in reach. Side rails up X2. 19:09 No provider procedures requiring assistance completed. ab2 19:21 Inserted saline lock: 20 gauge in right antecubital area, using aseptic technique. ab2 Blood collected. 19:21 Basic Metabolic Panel Sent. ab2 19:21 CBC with Diff Sent. ab2 19:21 LFT's Sent. ab2 19:21 Magnesium Sent. ab2 19:21 NT PRO-BNP Sent. ab2 19:21 PT-INR Sent. ab2 19:21 Troponin HS Sent. ab2 20:03 CT Head Brain wo Cont In Process Unspecified. EDMS 20:27 X-ray completed. Portable x-ray completed in exam room. Patient tolerated procedure [facility] well. 20:30 XRAY Chest (1 view) In Process Unspecified. EDMS 21:40 Wendy Friend MD is Referral Physician. mh7 21:40 IV discontinued, intact, bleeding controlled, No redness/swelling at site. Pressure ab2 dressing applied. Administered Medications: 19:50 Drug: Tylenol 1000 mg Route: PO; ab2 21:39 Drug: Potassium Chloride 20 mEq Route: PO; ab2 Outcome: 21:41 Discharge ordered by . mh7 21:45 Discharged to home ambulatory. ab2 21:45 Condition: good 21:45 Discharge instructions given to patient, Instructed on discharge instructions, follow up and referral plans. Demonstrated understanding of instructions, follow-up care. 21:45 Patient left the ED. ab2 Signatures: Dispatcher [employer] EDNY Melita Medeiros Martha 1 Erik Choudhury MD MD [facility] Patricia Villegas RN RN 1 Christopher Turpin ab2 Corrections: (The following items were deleted from the chart) 19:45 19:26 THYROID STIMULAT HORMONE+C.LAB.BRZ drawn and sent. ab2 EDMS
--- NOTE | 2021-12-17 21:42 | EDPHYS ---
Physician Documentation [facility] Name: Rosa Isela Grant Age: 56 yrs Sex: Female : 1965 Arrival Date: 12/17/2021 Time: 18:28 Bed 26 Private MD: REED Physician Erik Choudhury HPI: 12/17 19:26 This 56 yrs old Female presents to ER via Ambulatory with complaints of High Blood mh7 Pressure. 19:26 The patient has elevated blood pressure and discovered this at home, with a home mh7 device. Onset: The symptoms/episode began/occurred 3 day(s) ago. Modifying factors: The symptoms are aggravated by nothing, The symptoms are alleviated by nothing. Associated signs and symptoms: Pertinent positives: headache, Pertinent negatives: chest pain, dizziness, dyspnea, lightheadedness, nausea, visual changes, vomiting, weakness. Severity of symptoms: At its worst the blood pressure was moderate, earlier today, in the emergency department the blood pressure is improved, mildly. The patient has been recently seen by a physician: a mds manager, 2 day(s) ago. Saw mds manager 2 days ago for elevated blood pressure and heart skipping beats. Blood pressure checked at home elevated and prescription was called in by mds manager which she took around 17:30.. Historical: - Allergies: 18:44 PENICILLINS; ld1 - PMHx: 18:44 Cholelithiasis; Hypertension; ld1 - PSHx: 18:44 Appendectomy; Cholecystectomy; gastric sleeve; ld1 - Immunization history:: Client reports receiving the 2nd dose of the Covid vaccine, Flu vaccine status is unknown. - Social history:: Smoking status: Patient/guardian denies using tobacco, Stopped _ months ago .1. ROS: 19:26 Constitutional: Negative for fever, chills, and weight loss, Eyes: Negative for injury, mh7 pain, redness, and discharge, ENT: Negative for injury, pain, and discharge, Neck: Negative for injury, pain, and swelling, Respiratory: Negative for shortness of breath, cough, wheezing, and pleuritic chest pain, Abdomen/GI: Negative for abdominal pain, nausea, vomiting, diarrhea, and constipation, Back: Negative for injury and pain, : Negative for injury, bleeding, discharge, and swelling, MS/Extremity: Negative for injury and deformity, Skin: Negative for injury, rash, and discoloration. 19:26 Psych: Negative for depression, anxiety, suicide ideation, homicidal ideation, and hallucinations, Allergy/Immunology: Negative for hives, rash, and allergies, Endocrine: Negative for neck swelling, polydipsia, polyuria, polyphagia, and marked weight changes, Hematologic/Lymphatic: Negative for swollen nodes, abnormal bleeding, and unusual bruising. 19:26 Cardiovascular: Negative for chest pain, edema, orthopnea, paroxysmal nocturnal dyspnea. 19:26 Neuro: Negative for altered mental status, dizziness, gait disturbance, hearing loss, loss of consciousness, numbness, seizure activity, speech changes, syncope, near syncope, tingling, tinnitus, tremor, visual changes, weakness. Exam: 19:26 Constitutional: This is a well developed, well nourished patient who is awake, alert, mh7 and in no acute distress. Head/Face: Normocephalic, atraumatic. Eyes: Pupils equal round and reactive to light, extra-ocular motions intact. Lids and lashes normal. Conjunctiva and sclera are non-icteric and not injected. Cornea within normal limits. Periorbital areas with no swelling, redness, or edema. Neck: Trachea midline, no thyromegaly or masses palpated, and no cervical lymphadenopathy. Supple, full range of motion without nuchal rigidity, or vertebral point tenderness. No Meningismus. Chest/axilla: Normal chest wall appearance and motion. Nontender with no deformity. No lesions are appreciated. Cardiovascular: Regular rate and rhythm with a normal S1 and S2. No gallops, murmurs, or rubs. Normal PMI, no JVD. No pulse deficits. Respiratory: Lungs have equal breath sounds bilaterally, clear to auscultation and percussion. No rales, rhonchi or wheezes noted. No increased work of breathing, no retractions or nasal flaring. Abdomen/GI: Soft, non-tender, with normal bowel sounds. No distension or tympany. No guarding or rebound. No evidence of tenderness throughout. Back: No spinal tenderness. No costovertebral tenderness. Full range of motion. Skin: Warm, dry with normal turgor. Normal color with no rashes, no lesions, and no evidence of cellulitis. MS/ Extremity: Pulses equal, no cyanosis. Neurovascular intact. Full, normal range of motion. Neuro: Awake and alert, GCS 15, oriented to person, place, time, and situation. Cranial nerves II-XII grossly intact. Motor strength 5/5 in all extremities. Sensory grossly intact. Cerebellar exam normal. Normal gait. Psych: Awake, alert, with orientation to person, place and time. Behavior, mood, and affect are within normal limits. Vital Signs: 18:42 BP 169 / 106; Pulse 70; Resp 15; Temp 98.3; Pulse Ox 100% ; Weight 56.7 kg; Height 5 ld1 ft. 2 in. (157.48 cm); Pain 4/10; 19:10 BP 159 / 101; Pulse 73; Resp 17; Pulse Ox 99% on R/A; ab2 20:27 BP 149 / 95; Pulse 70; Resp 17; Pulse Ox 99% on R/A; ab2 21:39 BP 164 / 100; Pulse 73; Resp 17; Pulse Ox 100% on R/A; ab2 18:42 Body Mass Index 22.86 (56.70 kg, 157.48 cm) ld1 MDM: 21:39 Differential diagnosis: hypertensive crisis, Malignant HTN, intracerebral hemorrhage. [facility] Data reviewed: vital signs, nurses notes, old medical records, lab test result(s), cardiac enzymes, CBC, electrolytes, urinalysis, EKG, radiologic studies, CT scan, plain films. Data interpreted: Pulse oximetry: on room air is 99 %. Interpretation: normal. Counseling: I had a detailed discussion with the patient and/or guardian regarding: the historical points, exam findings, and any diagnostic results supporting the discharge/admit diagnosis, the presence of at least one elevated blood pressure reading (>120/80) during this emergency department visit, lab results, radiology results, the need for outpatient follow up, to return to the emergency department if symptoms worsen or persist or if there are any questions or concerns that arise at home. Response to treatment: the patient's symptoms have resolved after treatment, the patient's blood pressure is in an acceptable range, mental status has returned to baseline, the patient no longer shows bradycardia, the patient is not short of breath, the patient is not tachycardic, the patient's pain is gone, the patient's temperature has normalized, the patient is now symptom free. 21:41 Patient medically screened. [facility] 12/17 19:20 Order name: Basic Metabolic Panel; Complete Time: 20:14 12/17 19:20 Order name: CBC with Diff; Complete Time: 20:14 12/17 19:20 Order name: LFT's; Complete Time: 20:14 12/17 19:20 Order name: Magnesium; Complete Time: 20:14 12/17 19:20 Order name: NT PRO-BNP; Complete Time: 20:14 12/17 19:20 Order name: PT-INR; Complete Time: 21:23 12/17 19:20 Order name: Troponin HS; Complete Time: 20:14 12/17 19:20 Order name: XRAY Chest (1 view); Complete Time: 20:45 12/17 19:22 Order name: CT Head Brain wo Cont; Complete Time: 20:14 [facility] 12/17 19:45 Order name: Thyroid Stimulating Hormone; Complete Time: 20:14 EDMS 12/17 21:13 Order name: D-Dimer; Complete Time: 21:23 EDMS 12/17 19:20 Order name: EKG; Complete Time: 19:21 12/17 19:20 Order name: Cardiac monitoring; Complete Time: 19:20 12/17 19:20 Order name: EKG - Nurse/Tech; Complete Time: 19:20 12/17 19:20 Order name: IV Saline Lock; Complete Time: 19:20 12/17 19:20 Order name: Labs collected and sent; Complete Time: 19:20 12/17 19:20 Order name: O2 Per Protocol; Complete Time: 19:20 12/17 19:20 Order name: O2 Sat Monitoring; Complete Time: 19:20 ab2 Administered Medications: 19:50 Drug: Tylenol 1000 mg Route: PO; ab2 21:39 Drug: Potassium Chloride 20 mEq Route: PO; ab2 Disposition Summary: 12/17/21 21:41 Discharge Ordered Location: Home [facility] Problem: an ongoing problem [facility] Symptoms: have improved mh7 Condition: Stable [facility] Diagnosis - Essential (primary) hypertension mh7 - Headache mh7 Followup: 7 - With: Private Physician - When: 1 - 2 days - Reason: Worsening of condition, Recheck today's complaints, Continuance of care, Re-evaluation by your physician Followup: [facility] - With: Wendy Friend MD - When: 1 - 2 days - Reason: Worsening of condition, Recheck today's complaints, Continuance of care, Re-evaluation by your physician Discharge Instructions: - Discharge Summary Sheet [facility] - General Headache Without Cause [facility] - Hypertension, Adult, [id number] [facility] - How to Take Your Blood Pressure, [id number]-[id number] [facility] Forms: - Medication Reconciliation Form [facility] - Thank You Letter [facility] - Antibiotic Education [facility] - Prescription Opioid Use [facility] Signatures: Dispatcher [employer] EDMS Erik Choudhury MD MD [facility] Patricia Villegas RN RN ld1 Christopher Turpin2 Corrections: (The following items were deleted from the chart) 19:45 19:24 THYROID STIMULAT HORMONE+C.LAB.BRZ ordered. EDMS EDMS 21:13 20:16 D-DIMER+COAG.LAB.BRZ ordered. EDMS EDMS
[2021-12-17 23:48] VITALS: TEMP 98.3
[2021-12-17 23:52] VITALS: BP 164/100; O2SAT 100
--- NOTE | 2021-12-18 07:44 | EKG ---
Test Date: 2021-12-17 Test Time: 19:24:58 Health And Safety Specialist: NIKOLE MEASUREMENT RESULTS: Intervals: Rate: 67 NM: 168 QRSD: 78 QT: 408 QTc: 431 [place]: P: 71 NM: 168 QRS: 60 T: 73 INTERPRETIVE STATEMENTS: Normal sinus rhythm Normal ECG Compared to ECG 01/25/2019 07:27:52 Myocardial infarct finding no longer present Electronically Signed On 12-18-21 07:42:17 CDT by Josep Ayala
== END 2021-12-17 21:45 | disposition home or self-care (01) ==
LOC: ER 18:26
DX: I10 Essential (primary) hypertension (principal); Z88.0 Allergy status to penicillin; Z87.891 Personal history of nicotine dependence
CPT/HCPCS: 36415; 70450; 71045; 80048; 80076; 83735; 83880; 84443; 84484; 85025; 85379; 85610; 93005; 99284

== ENCOUNTER 2022-12-15 01:21 | Emergency (ER) | payer BC ==
--- OUTSIDE RECORDS SUMMARY | 2022-12-15 01:26 | XMS REPORT | Continuity of Care Document ---
:1965 Author Organization [facility] t Address [address] [place] [address] Care Team Providers Name Role Phone PCP, PATIENT DOES NOT HAVE A Primary Care Physician Unavaila SATYA Rogers Attending Clinician Unavailable DEBRA NOYOLA Attending Clinician Unavailable LAB90 Attending Clinician Unavailable PROVIDER, EVISIT Attending Clinician Unavailable JOSIE GRIFFITHS Attending Clinician Unavailable KARSTEN HALE Attending Clinician Unavailable MD ЕКАТЕРИНА Attending Clinician Unavailable [id number] Attending Clinician Unavailable SATYA WEI Attending Clinician Unavailable DAMIÁN ROBLES Attending Clinician Unavailable Josie Griffiths MD Attending Clinician [phone] SATYA BASS Attending Clinician Unavailable SVEN HUDDLESTON Attending Clinician Unavailable Toan SOLANO, Katelynn Rod Attending Clinician Unavailable Only, Ang Db Test Attending Clinician Unavailable Vito Skinner MD Attending Clinician VITO SKINNER Attending Clinician Unavailable Doctor Unassigned, [place] Attending Clinician Unavailable Sven Huddleston MD Attending Clinician DARA ANTONIO Attending Clinician Unavailable HARLEEN MADRIGAL Attending Clinician Unavailable OLGA STOVALL Attending Clinician Unavailable Lab, Adc Fam Pob I Attending Clinician Unavailable Rosemary Ly Attending Clinician ROSEMARY WILLIS Attending Clinician Unavailable Payers Payer Name Policy Type Policy Number Effective Date Expiration Date S na [id number] PPO AND [id number] 2019 00:00:00 OUT OF STATE BCBS 2 [id number] 2020 00:00:00 [employer] [place] [id number] 2017 00:00:00 Problems Condition Condition Condition Status Onset Resolution Last Treating Co mments Source Name Details Category Date Date Treatment Clinician Date DDD DDD Disease Active 2011-08 Elisha (degenerat (degenerat 09-16 Se ybold jd disc jd disc 00:00: - disease), disease), 00 Exte rna lumbosacra lumbosacra l l l OA OA Disease Active 2011-08 Elisha (osteoarth (osteoarth 09-16 Se ybold ritis of ritis of 00:00: - the spine) the spine) 00 Ex terna l Mixed Mixed Disease Active 2010-08 Elisha anxiety anxiety 09-18 Seybold depressive depressive 00:00: - disorder disorder 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 controlle d, better Allergies, Adverse Reactions, Alerts Allergy Allergy Status Severity Reaction(s) Onset Inactive Treating Comm ents Source Name Type Date Date Clinician Penicill Propensi Active Hives Elisha in G ty to 2-20 Seybold adverse 00:00: - reaction 00 Externa s l PENICILL DRUG Active Hives [facility] IN INGREDI 2-20 ity of 00:00: [place] 00 [facility] Penicill Propensi Active Hives Univer s in ty to 2-20 ity of adverse 00:00: [place] reaction 00 Medical s Branch Penicill Propensi Active Hives 2010-08 Elisha ins ty to 0-24 Seybold adverse 00:00: reaction 00 s to drug Penicill Propensi Active Hives 2010-08 Elisha ins ty to 0-24 Seybold adverse 00:00: - reaction 00 Externa s to l drug Social History Social Habit Start Date Stop Date Quantity Comments Source History SDOH Elisha Seybo ld Alcohol Frequency - Exter nal History SDOH Elisha Seybo ld Alcohol Std Drinks - Exte rnal History SDOH Elisha Seybo ld Alcohol Binge - External Exposure to Yes Elisha goldsmith SARS-CoV-2 (event) Gender identity Elisha Se ybold - External Sexual orientation Elisha Seybold - External Alcohol intake 2022-12-06 2022-12-06 Current drinker Kelse y Seybold 00:00:00 00:00:00 of alcohol - External (finding) Tobacco use and 2020-12-23 2020-12-23 Smokeless tobacco Ke fabiola Seybold exposure 00:00:00 00:00:00 non-user - External Alcohol Comment 2020-12-23 2020-12-23 Socially Elisha Bowen ybold 00:00:00 00:00:00 - External History of Social 2020-12-23 2020-12-23 Elisha Seybold function 00:00:00 00:00:00 - External Sex [birth year] At [birth year] Elisha Se ybold 00:00:00 00:00:00 - External Smoking Status Start Date Stop Date Source Never smoked tobacco Elisha yb old - External Medications Ordered Filled Start Stop Current Ordering Indication Dosage Frequency Signature Comments Components Source Medication Medication Date Date Medication? Clinician (SIG) Name Name Nitrofurant Yes [id number] 100mg Take 1 Elisha oin Monohyd 4-17 capsule Seybo ld Macro 00:00: (100 mg - (Macrobid) 00 total) by Exte rna 100 MG oral mouth 2 l Capsule times daily Fluconazole 2022- Yes [id number] 150mg Take 1 Elisha 150 MG oral 4-17 04-18 tablet Seybo ld Tablet 00:00: 04:59 (150 mg - 00 :00 total) by Externa mouth once l for 1 dose Azithromyci 2022- No [id number] Take 2 Elisha n 250 MG 1-24 04-17 tablets by Seyb old oral Tablet 00:00: 00:00 mouth on - 00 :00 day 1 then Externa 1 tablet l by mouth daily for 4 days thereafter . Azithromyci 0 2022- No [id number] Take 2 Elisha n 250 MG 1-24 01-30 tablets by Seyb old oral Tablet 00:00: 05:59 mouth on - 00 :00 day 1 then Externa 1 tablet l by mouth daily for 4 days thereafter . Nitrofurant 2021-08- No [id number] 100mg Take 1 Elisha oin Monohyd 0-10 10-16 capsule Seyb old Macro 100 00:00: 04:59 (100 mg - MG oral 00 :00 total) by Externa Capsule mouth 2 l times daily for 5 days BISOPROLOL- 2021-0 Yes 1{tbl} Take 1 Ke lsey HCTZ 5-6.25 8-01 tablet by Sey bold MG oral 00:00: mouth Take - Tablet 00 one tablet Externa a day l BISOPROLOL- 2021-0 Yes 1{tbl} Take 1 Ke lsey HCTZ 5-6.25 8-01 tablet by Sey bold MG oral 00:00: mouth Take - Tablet 00 one tablet Externa a day l BISOPROLOL- 2021-0 Yes 1{tbl} Take 1 Ke lsey HCTZ 5-6.25 8-01 tablet by Sey bold MG oral 00:00: mouth Take - Tablet 00 one tablet Externa a day l BISOPROLOL- 2021-0 Yes 1{tbl} Take 1 Ke lsey HCTZ 5-6.25 8-01 tablet by Sey bold MG oral 00:00: mouth Take - Tablet 00 one tablet Externa a day l BIOTIN OR Yes Take by Kelse y 5-02 mouth Seybold 10:59: 32 BISOPROLOL- 2021-0 Yes 1{tbl} Take 1 Ke lsey HCTZ 5-6.25 4-28 tablet by Sey bold MG oral 00:00: mouth Tablet 00 daily Nitrofurant 2021-0 Yes [id number] 100mg Take 1 Elisha oin Monohyd 4-12 capsule Seybo ld Macro 100 00:00: (100 mg MG oral 00 total) by Capsule mouth in the morning and 1 capsule (100 mg total) in the evening. Nitrofurant 2021- No [id number] 100mg Take 1 Elisha oin Monohyd 4-12 05-02 capsule Seyb old Macro 100 00:00: 00:00 (100 mg MG oral 00 :00 total) by Capsule mouth in the morning and 1 capsule (100 mg total) in the evening. BIOTIN OR 2021-0 Yes Take by Kelse y 3-10 mouth Seybold 10:41: 34 BIOTIN OR 2021-0 Yes Take by Kelse y 3-10 mouth Seybold 10:41: 34 Azithromyci 2021-0 Yes [id number] Take 2 Elisha n 250 MG 3-10 tablets by Seybo ld oral Tablet 00:00: mouth on 00 day 1 then 1 tablet by mouth daily for 4 days thereafter . methylPREDN 2021-0 Yes [id number] 1{tanika} Take 1 tanika Elisha ISolone 4 3-10 by mouth Seybol d MG oral 00:00: See Admin Tablet 00 Instructio Therapy ns Use as Pack directed Azithromyci 2021-0 Yes [id number] Take 2 Elisha n 250 MG 3-10 tablets by Seybo ld oral Tablet 00:00: mouth on 00 day 1 then 1 tablet by mouth daily for 4 days thereafter . methylPREDN 2021-0 Yes [id number] 1{tanika} Take 1 tanika Elisha ISolone 4 3-10 by mouth Seybol d MG oral 00:00: See Admin Tablet 00 Instructio Therapy ns Use as Pack directed Azithromyci 2021-0 2021- No [id number] Take 2 Elisha n 250 MG 3-10 05-02 tablets by Seyb old oral Tablet 00:00: 00:00 mouth on 00 : day 1 then 1 tablet by mouth daily for 4 days thereafter . methylPREDN 2021-2021- No [id number] 1{tanika} Take 1 tanika Elisha ISolone 4 3-10 05-02 by mouth Seybo ld MG oral 00:00: 00:00 See Admin Tablet 00 :00 Instructio Therapy ns Use as Pack directed Ketorolac 2021-0 2021- No [id number] 60mg Ke lsey Tromethamin 3-07 03-07 Seybold e (TORADOL) 22:45: 22:45 60 mg/2 mL 00 :00 Ketorolac 2021- No [id number] 60mg 60 mg, Elisha Tromethamin 3-07 03-07 intramuscu S eybold e (TORADOL) 22:45: 22:45 lar, ONCE, 60 mg/2 mL 00 :00 On Tue10/26/21 at 1645, For 1 dose BIOTIN OR Yes Take by Kelse y 3-07 mouth Seybold 16:03: 10 Meloxicam Yes [id number] 7.5mg Take 1 Elisha 7.5 MG oral 3-07 tablet Seybol d Tablet 00:00: (7.5 mg 00 total) by mouth in the morning. Cefdinir Yes [id number] 300mg Take 1 Ke lsey 300 MG oral 3-07 capsule Seybo ld Capsule 00:00: (300 mg 00 total) by mouth in the morning and 1 capsule (300 mg total) in the evening. Meloxicam Yes [id number] 7.5mg Take 1 Elisha 7.5 MG oral 3-07 tablet Seybol d Tablet 00:00: (7.5 mg 00 total) by mouth in the morning. Cefdinir Yes [id number] 300mg Take 1 Ke lsey 300 MG oral 3-07 capsule Seybo ld Capsule 00:00: (300 mg 00 total) by mouth in the morning and 1 capsule (300 mg total) in the evening. Meloxicam Yes [id number] 7.5mg Take 1 Elisha 7.5 MG oral 3-07 tablet Seybol d Tablet 00:00: (7.5 mg 00 total) by mouth in the morning. Cefdinir Yes [id number] 300mg Take 1 Ke lsey 300 MG oral 3-07 capsule Seybo ld Capsule 00:00: (300 mg 00 total) by mouth in the morning and 1 capsule (300 mg total) in the evening. Meloxicam 0 2021- No [id number] 7.5mg Take 1 Elisha 7.5 MG oral 3-07 05-02 tablet Seybo ld Tablet 00:00: 00:00 (7.5 mg 00 :00 total) by mouth in the morning. Cefdinir 2021- No [id number] 300mg Take 1 K elsey 300 MG oral 3- 05- capsule Seyb old Capsule 00:00: 00:00 (300 mg 00 :00 total) by mouth in the morning and 1 capsule (300 mg total) in the evening. Nitrofurant Yes [id number] 100mg Take 1 Elisha oin Monohyd 1-20 capsule Seybo ld Macro 100 00:00: (100 mg MG oral 00 total) by Capsule mouth 2 times daily Nitrofurant Yes [id number] 100mg Take 1 Elisha oin Monohyd 1-20 capsule Seybo ld Macro 100 00:00: (100 mg MG oral 00 total) by Capsule mouth 2 times daily Nitrofurant 2021- No [id number] 100mg Take 1 Elisha oin Monohyd 1-20 03-10 capsule Seyb old Macro 100 00:00: 00:00 (100 mg MG oral 00 :00 total) by Capsule mouth 2 times daily Meloxicam 2020-08- No [id number] TAKE 1 Elisha 15 MG oral 2-16 01-20 TABLET(15 Sey bold Tablet 00:00: 00:00 MG) BY 00 :00 MOUTH DAILY Meloxicam 2020-08 Yes [id number] TAKE 1 K elsey 15 MG oral 1-19 TABLET(15 Seyb old Tablet 00:00: MG) BY 00 MOUTH DAILY Doxycycline 2020-08 Yes [id number] 100mg Take 1 Elisha Hyclate 100 1-18 tablet Seybol d MG oral 00:00: (100 mg Tablet 00 total) by mouth 2 times daily Doxycycline 2020-08- No [id number] 100mg Take 1 Elisha Hyclate 100 1-18 [...] mouth Seybold 14:51: 37 Azithromyci 2020-08- No [id number] Take 2 Elisha n 250 MG 1-10 11-16 tablets by Seyb old oral Tablet 00:00: 05:59 mouth on 00 :00 day 1 then 1 tablet by mouth daily for 4 days thereafter . Permethrin 2020-08 Yes [id number] Apply to Elisha 5 % apply 0-26 affected Seybol d externally 00:00: area and Cream 00 leave on for 8-14 hours. Repeat for 7 days. Permethrin 2020-08 Yes [id number] Apply to Elisha 5 % apply 0-26 affected Seybol d externally 00:00: area and Cream 00 leave on for 8-14 hours. Repeat for 7 days. Permethrin 2020-08 Yes [id number] Apply to Elisha 5 % apply 0-26 affected Seybol d externally 00:00: area and Cream 00 leave on for 8-14 hours. Repeat for 7 days. Permethrin 2020-08 Yes [id number] Apply to Elisha 5 % apply 0-26 affected Seybol d externally 00:00: area and Cream 00 leave on for 8-14 hours. Repeat for 7 days. Permethrin 2020-08 Yes [id number] Apply to Elisha 5 % apply 0-26 affected Seybol d externally 00:00: area and Cream 00 leave on for 8-14 hours. Repeat for 7 days. Permethrin 2020-08 Yes [id number] Apply to Elisha 5 % apply 0-26 affected Seybol d externally 00:00: area and Cream 00 leave on for 8-14 hours. Repeat for 7 days. Permethrin 2020-08- No [id number] Apply to Elisha 5 % apply 0-26 05-02 affected Seybo ld externally 00:00: 00:00 area and Cream 00 :00 leave on for 8-14 hours. Repeat for 7 days. BIOTIN OR 2020-08 Yes Take by Kelse y 0-19 mouth Seybold 08:34: 51 Meloxicam 2020-08 Yes [id number] 15mg Take 1 K elsey 15 MG oral 0-19 tablet (15 Sey bold Tablet 00:00: mg total) 00 by mouth daily Meloxicam 2020-08 Yes [id number] 15mg Take 1 K elsey 15 MG oral 0-19 tablet (15 Sey bold Tablet 00:00: mg total) 00 by mouth daily TRIMETHOPRI 2020-08- No [id number] 1{tbl} Take 1 Elisha M-SULFAMETH 0-07 10-11 tablet by Se ybold OXAZOLE 00:00: 04:59 mouth 2 800-160 MG 00 :00 times oral Tablet daily for 3 days Paroxetine 2020- No [id number] 20mg Take 1 Elisha HCl 20 MG 8-24 -07 tablet (20 Sey bold oral Tablet 00:00: 00:00 mg total) 00 :00 by mouth every morning BIOTIN OR Yes Take by Kelse y 8-17 mouth Seybold 07:59: 07 Phenazopyri 2020- No [id number] 200mg Q.[id number] Take 1 Elisha dine HCl 6-30 - [id number] tablet Se ybold 200 MG oral 00:00: 00:00 3D (200 mg Tablet 00 :00 total) by mouth 3 times daily as needed for pain hydrOXYzine 2020- No [id number] 25mg Q.[id number] Take 1 Elisha HCl 25 MG 6-05-28 [id number] tablet (25 Seybold oral Tablet 00:00: 00:00 3D mg total) 00 :00 by mouth 3 times daily as needed for itching Multiple 2018-08 Yes Elisha Vitamin 0-04 Seybold (MULTI-NAKIT 00:00: MINS OR) 00 Multiple 2018-08 Yes [...] Seybold (MULTI-ANKIT 00:00: MINS OR) 00 Multiple 2018-08- No Elisha Vitamin 0-04 05-02 Gabe (MULTI-ANKIT 00:00: 00:00 MINS OR) 00 :00 aspirin 2017-0 Yes 81mg Take 81 mg Univ ers (ASPIRIN 6-05 by mouth ity of LOW DOSE) 01:40: daily. [place] 81 mg EC 40 Medical tablet Branch AMLODIPINE Yes Take by Univ ers BESYLATE 6-05 mouth. ity of (AMLODIPINE 01:17: [place] ORAL) 03 Medical Branch aspirin 0 Yes 81mg Take 81 mg Univ ers [...] Medical tablet Branch AMLODIPINE Yes Take by Univ ers BESYLATE 6-04 mouth. ity of (AMLODIPINE 20:17: [place] ORAL) 03 Medical Branch AMLODIPINE Yes Take by Univ ers BESYLATE 6-04 mouth. ity of (AMLODIPINE 20:17: [place] ORAL) 03 Medical Branch AMLODIPINE Yes Take by Univ ers BESYLATE 6-04 mouth. ity of (AMLODIPINE 20:17: [place] ORAL) 03 Medical Branch bacitracin 2017- Yes [id number] Apply to Univers 500 6-04 affected ity of unit/gram 00:00: area(s) 3 [place] as ointment 00 (three) Medical times Branch daily. hydrOXYzine 2017- Yes [id number] 25mg Take 1 Univers 25 mg 6-04 tablet by ity of tablet 00:00: mouth [place] 00 every 6 Medical (six) Branch hours as needed for Itching. bacitracin 2017- Yes [id number] Apply to Univers 500 6-04 affected ity of unit/gram 00:00: area(s) 3 [place] as ointment 00 (three) Medical times Branch daily. hydrOXYzine 2017- Yes [id number] 25mg Take 1 Univers 25 mg 6-04 tablet by ity of tablet 00:00: mouth [place] 00 every 6 Medical (six) Branch hours as needed for Itching. bacitracin 2018-0 Yes [id number] Apply to Univers 500 6-04 affected ity of unit/gram 00:00: area(s) 3 [place] as ointment 00 (three) Medical times Branch daily. hydrOXYzine 2018-0 Yes [id number] 25mg Take 1 Univers 25 mg 6-04 tablet by ity of tablet 00:00: mouth [place] 00 every 6 Medical (six) Branch hours as needed for Itching. bacitracin 2018-0 Yes [id number] Apply to Univers 500 6-04 affected ity of unit/gram 00:00: area(s) 3 [place] as ointment 00 (three) Medical times Branch daily. hydrOXYzine 2018-0 Yes [id number] 25mg Take 1 Univers 25 mg 6-04 tablet by ity of tablet 00:00: mouth [place] 00 every 6 Medical (six) Branch hours as needed for Itching. Immunizations Ordered Immunization Filled Immunization Date Status Commen ts Source Name Name Covid-19 Vaccine 2020-12-03 Completed Elisha cannon ([employer]), Mrna-lnp, 00:00:00 Sahy Protein, Pf, 30mcg/0.3ml,IM Covid-19 Vaccine 2020-12-03 Completed Elisha cannon ([employer]), Mrna-lnp, 00:00:00 Shay Protein, Pf, 30mcg/0.3ml,IM Covid-19 Vaccine 2020-12-03 Completed Elisha cannon ([employer]), Mrna-lnp, 00:00:00 Shay Protein, Pf, 30mcg/0.3ml,IM Covid-19 Vaccine 2020-12-03 Completed Elisha cannon ([employer]), Mrna-lnp, 00:00:00 Shay Protein, Pf, 30mcg/0.3ml,IM Covid-19 Vaccine 2020-12-03 Completed Elisha cannon ([employer]), Mrna-lnp, 00:00:00 Shay Protein, Pf, 30mcg/0.3ml,IM Covid-19 Vaccine 2020-12-03 Completed Elisha cannon ([employer]), Mrna-lnp, 00:00:00 - Ext ernal Shay Protein, Pf, 30mcg/0.3ml,IM Covid-19 Vaccine 2020-12-03 Completed Elisha S eybold ([facility]), Mrna-lnp, 00:00:00 - Ext ernal Shay Protein, Pf, 30mcg/0.3ml,IM Covid-19 Vaccine 2020-12-03 Completed Elisha S eybold ([facility]), Mrna-lnp, 00:00:00 - Ext ernal Shay Protein, Pf, 30mcg/0.3ml,IM Covid-19 Vaccine 2020-12-03 Completed Elisha S eybold ([facility]), Mrna-lnp, 00:00:00 - Ext ernal Shay Protein, Pf, 30mcg/0.3ml,IM Covid-19 Vaccine 2020-12-03 Completed Elisha S eybold ([facility]), Mrna-lnp, 00:00:00 Shay Protein, Pf, 30mcg/0.3ml,IM Covid-19 Vaccine 2020-12-03 Completed Elisha S eybold ([facility]), Mrna-lnp, 00:00:00 Shay Protein, Pf, 30mcg/0.3ml,IM Covid-19 Vaccine 2020-12-03 Completed Elisha S eybold ([facility]), Mrna-lnp, 00:00:00 Shay Protein, Pf, 30mcg/0.3ml,IM Covid-19 Vaccine 2020-12-03 Completed Elisha S eybold ([facility]), Mrna-lnp, 00:00:00 Shay Protein, Pf, 30mcg/0.3ml,IM Covid-19 Vaccine 2020-11-11 Completed Elisha S eybold ([facility]), Mrna-lnp, 00:00:00 Shay Protein, Pf, 30mcg/0.3ml,IM Covid-19 Vaccine 2020-11-11 Completed Elisha S eybold ([facility]), Mrna-lnp, 00:00:00 Shay Protein, Pf, 30mcg/0.3ml,IM Covid-19 Vaccine 2020-11-11 Completed Elisha S eybold ([facility]), Mrna-lnp, 00:00:00 Shay Protein, Pf, 30mcg/0.3ml,IM Covid-19 Vaccine 2020-11-11 Completed Elisha Rod eybold ([facility]), Mrna-lnp, 00:00:00 Shay Protein, Pf, 30mcg/0.3ml,IM Covid-19 Vaccine 2020-11-11 Completed Elisha S eybold ([facility]), Mrna-lnp, 00:00:00 Shay Protein, Pf, 30mcg/0.3ml,IM Covid-19 Vaccine 2020-11-11 Completed Elisha S eybold ([facility]), Mrna-lnp, 00:00:00 - Ext ernal Shay Protein, Pf, 30mcg/0.3ml,IM Covid-19 Vaccine 2020-11-11 Completed Elisha Rod eybold ([employer]), Mrna-lnp, 00:00:00 - Ext ernal Shay Protein, Pf, 30mcg/0.3ml,IM Covid-19 Vaccine 2020-11-11 Completed Elisha Rod eybold ([employer]), Mrna-lnp, 00:00:00 - Ext ernal Shay Protein, Pf, 30mcg/0.3ml,IM Covid-19 Vaccine 2020-11-11 Completed Elisha S eybold ([employer]), Mrna-lnp, 00:00:00 - Ext ernal Shay Protein, Pf, 30mcg/0.3ml,IM Covid-19 Vaccine 2020-11-11 Completed Elisha S eybold ([facility]), Mrna-lnp, 00:00:00 Shay Protein, Pf, 30mcg/0.3ml,IM Covid-19 Vaccine 2020-11-11 Completed Elisha S eybold ([facility]), Mrna-lnp, 00:00:00 Shay Protein, Pf, 30mcg/0.3ml,IM Covid-19 Vaccine 2020-11-11 Completed Elisha S eybold ([employer]), Mrna-lnp, 00:00:00 Shay Protein, Pf, 30mcg/0.3ml,IM Covid-19 Vaccine 2020-11-11 Completed Elisha S eybold ([employer]), Mrna-lnp, 00:00:00 Shay Protein, Pf, 30mcg/0.3ml,IM Tdap- (Boostrix, 2019-07-03 Completed Elisha S eybold Adacel) 00:00:00 Tdap- (Boostrix, 2019-07-03 Completed Elisha S eybold Adacel) 00:00:00 Tdap- (Boostrix, 2019-07-03 Completed Elisha S eybold Adacel) 00:00:00 Tdap- (Boostrix, 2019-07-03 Completed Elisha S eybold Adacel) 00:00:00 Tdap- (Boostrix, 2019-07-03 Completed Elisha S eybold Adacel) 00:00:00 Tdap- (Boostrix, 2019-07-03 Completed Elisha S eybold Adacel) 00:00:00 Tdap- (Boostrix, 2019-07-03 Completed Elisha S eybold Adacel) 00:00:00 - External Tdap- (Boostrix, 2019-07-03 Completed Elisha S eybold Adacel) 00:00:00 - External Tdap- (Boostrix, 2019-07-03 Completed Elisha S eybold Adacel) 00:00:00 - External Tdap- (Boostrix, 2019-07-03 Completed Elisha S eybold Adacel) 00:00:00 - External Tdap- (Boostrix, 2019-07-03 Completed Elisha S eybold Adacel) 00:00:00 Tdap- (Boostrix, 2019-07-03 Completed Elisha S eybold Adacel) 00:00:00 Tdap- (Boostrix, 2019-07-03 Completed Elisha S eybold Adacel) 00:00:00 Vital Signs Vital Name Observation Time Observation Value Comments Source Heart rate 2022-12-06 16:00:00 60 /min Elisha cannon - External Body temperature 2022-12-06 16:00:00 36.56 Clover Sabina Bernal - External Body height 2022-12-06 16:00:00 157.5 cm Elisha cannon - External Body weight 2022-12-06 16:00:00 58.968 kg Elisha cannon - External BMI 2022-12-06 16:00:00 23.78 kg/m2 Elisha cannon - External Systolic blood 2022-09-14 21:32:00 108 mm[Hg] Elisha Seybold - pressure External Diastolic blood 2022-09-14 21:32:00 74 mm[Hg] Kelse y Seybold - pressure External Heart rate 2022-09-14 21:32:00 69 /min Elisha S eybold - External Body temperature 2022-09-14 21:32:00 36.89 Clover Sabina ey Seybold - External Respiratory rate 2022-09-14 21:32:00 14 /min Sabina ey Seybold - External Body height 2022-09-14 21:32:00 157.5 cm Elisha S eybold - External Body weight 2022-09-14 21:32:00 58.968 kg Elisha S eybold - External BMI 2022-09-14 21:32:00 23.78 kg/m2 Elisha S eybold - External Systolic blood 2022-05-31 20:17:00 112 mm[Hg] Elisha Seybold - pressure External Diastolic blood 2022-05-31 20:17:00 74 mm[Hg] Tavose y Seybold - pressure External Heart rate 2022-05-31 20:17:00 82 /min Elisha S eybold - External Body temperature 2022-05-31 20:17:00 37 Clover Sabina ey Seybold - External Respiratory rate 2022-05-31 20:17:00 14 /min Sabina ey Seybold - External Body height 2022-05-31 20:17:00 157.5 cm Elisha S eybold - External Body weight 2022-05-31 20:17:00 57.607 kg Elisha S eybold - External BMI 2022-05-31 20:17:00 23.23 kg/m2 Elisha S eybold - External Systolic blood 2022-05-25 18:42:00 110 mm[Hg] Elisha Seybold - pressure External Diastolic blood 2022-05-25 18:42:00 70 mm[Hg] Kelse y Seybold - pressure External Heart rate 2022-05-25 18:42:00 85 /min Elisha S eybold - External Respiratory rate 2022-05-25 18:42:00 16 /min Sabina ey Seybold - External Body height 2022-05-25 18:42:00 157.5 cm Elisha S eybold - External Body weight 2022-05-25 18:42:00 56.382 kg Elisha S eybold - External BMI 2022-05-25 18:42:00 22.73 kg/m2 Elisha S eybold - External Systolic blood 2021-12-21 15:54:00 112 mm[Hg] Elisha Seybold pressure Diastolic blood 2021-12-21 15:54:00 68 mm[Hg] Kelse y Seybold pressure Heart rate 2021-12-21 15:54:00 60 /min Elisha S eybold Body temperature 2021-12-21 15:54:00 36.56 Clover Sabina ey Seybold Respiratory rate 2021-12-21 15:54:00 16 /min Sabina ey Seybold Body height 2021-12-21 15:54:00 157.5 cm Elisha S eybold Body weight 2021-12-21 15:54:00 57.153 kg Elisha S eybold BMI 2021-12-21 15:54:00 23.05 kg/m2 Elisha S eybold Systolic blood 2021-10-29 16:40:00 134 mm[Hg] Elisha Seybold pressure Diastolic blood 2021-10-29 16:40:00 73 mm[Hg] Kelse y Seybold pressure Heart rate 2021-10-29 16:40:00 77 /min Elisha S eybold Body temperature 2021-10-29 16:40:00 36.72 Clover Sabina ey Seybold Respiratory rate 2021-10-29 16:40:00 16 /min Sabina ey Seybold Body height 2021-10-29 16:40:00 157.5 cm Elisha S eybold Body weight 2021-10-29 16:40:00 57.97 kg Elisha S eybold BMI 2021-10-29 16:40:00 23.37 kg/m2 Elisha S eybold Systolic blood 2021-10-26 21:57:00 136 mm[Hg] Elisha Seybold pressure Diastolic blood 2021-10-26 21:57:00 90 mm[Hg] Kelse [...] saturation in 2021 20:50:00 99 /min Elisha Seybold Arterial blood by Pulse oximetry Systolic blood 2021-06-09 13:29:00 118 mm[Hg] Elisha Seybold pressure Diastolic blood 2021-06-09 13:29:00 72 mm[Hg] Kelse y Seybold pressure Heart rate 2021-06-09 13:29:00 87 /min Elisha S eybold Body temperature 2021-06-09 13:29:00 36.56 Clover Sabina ey Seybold Respiratory rate 2021-06-09 13:29:00 12 /min Sabina ey Seybold Body height 2021-06-09 13:29:00 157.5 cm Elisha S eybold Body weight 2021-06-09 13:29:00 58.06 kg Elisha S eybold BMI 2021-06-09 13:29:00 23.41 kg/m2 Elisha S eybold Systolic blood 2021-05-28 13:16:00 110 mm[Hg] Elisha Seybold pressure Diastolic blood 2021-05-28 13:16:00 76 mm[Hg] Jorge gunn Gabe pressure Heart rate 2021-05-28 13:16:00 64 /min Elisha cannon Body temperature 2021-05-28 13:16:00 36.89 Clover Sabina Bernal Respiratory rate 2021-05-28 13:16:00 20 /min Sabina Bernal Body weight 2021-05-28 13:16:00 58.968 kg Elisha cannon BMI 2021-05-28 13:16:00 23.78 kg/m2 Elisha cannon Procedures Procedure Date / Time Performing Clinician Source Performed LS RAPID STREP ASSAY-LAB 2022-09-14 21:53:00 Josie Griffiths - TEST [facility] External [facility] PATIENT FINANCIAL 2021-09-01 01:13:40 Doctor Unassigned, [facility] POLICY [place] [facility] NO SHOW OR MISSED 2021-09-01 01:13:26 Doctor Unassigned, [facility] APPOINTMENT POLICY [place] [facility] [facility]anc [facility] ACKNOWLEDGEMENT CONSENT/REFUSAL FOR 2021-09-01 01:13:14 Doctor Unassigned, [facility] DIAGNOSIS AND TREATMENT [facility] ASSIGNMENT OF BENEFITS 2021-09-01 01:13:02 Doctor Unassigned, [facility] URINALYSIS NONAUTO W/O 2021-05-28 13:23:00 Aga, Sven Patel y Seybold SCOPE URINE CULTURE, ROUTINE 2021-05-28 13:19:00 Aga, Sven W Tavose y Seybold URINE CULTURE, ROUTINE 2021-05-28 13:19:00 Aga, Svenhoda Vose y Seybold RESULT Encounters Start End Encounter Admission Attending Care Care Encounter Source Date/Time Date/Time Type Type Clinicians Facility Department ID 2022-06-25 [facility]patient [facility] [id number] [place] 16:[place]:[id number] [place] [address] 2021-06-10 [facility] [id number] [facility] 15[facility] 2020-12-27 [facility] [id number] [facility] 04:16:00 [facility] 2022-12-10 2022-12-10 Outpatient ELISHA NOYOLA [id number] Elisha 00:00:00 00:00:00 DEBRA Seybol d 2022-12-06 2022-12-06 Outpatient LAB90 ELISHA LIZ [id number] Elisha 11:45:00 11:45:00 Seybol d 2022-12-06 2022-12-06 Outpatient ELISHA NOYOLA [id number] Elisha 11:00:00 11:00:00 DEBRA Seybol d 2022-11-22 2022-11-22 Outpatient PROVIDERELISHA [id number] Elisha 19:20:00 19:20:00 EVISIT Seybol d 2022-11-19 2022-11-19 Outpatient MHIE MHIE [id number] Memoria 15:45:00 15:45:00 00 l Quoc 2022-11-19 2022-11-19 Outpatient MHIE MHIE [id number] Memoria 15:45:00 15:45:00 00 l Quoc 2022-09-14 2022-09-14 Outpatient ELISHA GRIFFITHS [id number] Elisha 16:30:00 16:30:00 JOSIE Seybol d 2022-08-20 2022-08-20 Outpatient ELISHA HALE [id number] Elisha 12:00:00 12:00:00 KARSTEN Seybol d 2022-08-13 2022-08-13 Outpatient CASSANDRA LIZ [id number] Elisha 00:00:00 00:00:00 MD MANJIT Seybol d 2022-05-31 2022-05-31 Outpatient LAB90 ELISHA LIZ [id number] Elisha 16:45:00 16:45:00 Seybol d 2022-05-31 2022-05-31 Outpatient ELISHA NOYOLA [id number] Elisha 15:30:00 15:30:00 DEBRA Seybol d 2022-05-25 2022-05-25 Outpatient [id number] ELISHA LIZ [id number] Elisha 14:50:00 14:50:00 Seybol d 2022-05-25 2022-05-25 Outpatient ELISHA WEI [id number] Elisha 14:00:00 14:00:00 SATYA Seybol d 2022-05-07 2022-05-07 Outpatient ELISHA LIZ [id number] Elisha 11:00:00 11:00:00 Seybol d 2022-05-07 2022-05-07 Outpatient ELISHA LIZ [id number] Elisha 10:00:00 10:00:00 Seybol d 2022-04-22 2022-04-22 Outpatient ELISHA HALE [id number] Elisha 00:00:00 00:00:00 KARSTEN Seybol d 2022-04-20 2022-04-20 Outpatient ELISHA HALE [id number] Elisha 00:00:00 00:00:00 KARSTEN Seybol d 2022-04-20 2022-04-20 Outpatient CASSANDRA LIZ [id number] Elisha 00:00:00 00:00:00 MD MANJIT Seybol d 2022-04-19 2022-04-19 Outpatient ELISHA HALE [id number] Elisha 00:00:00 00:00:00 KARSTEN Seybol d 2022-04-15 2022-04-15 Outpatient CASSANDRA LIZ [id number] Elisha 00:00:00 00:00:00 MD MANJIT Seybol rupal 2022-04-09 2022-04-09 Outpatient CASSANDRA LIZ [id number] Elisha 00:00:00 00:00:00 MD MANJIT Seybol d 2022-03-31 2022-03-31 Outpatient [id number] ELISHA LIZ [id number] Elisha 16:40:00 16:40:00 Seybol d 2022-03-31 2022-03-31 Office JORDYN WEI [id number] Elisha 15:30:00 15:30:00 Visit SATYA [id number] Se andrea 1.2.7.2.686 [id number] 2022-02-09 2022-02-09 Outpatient Abdi ROBLES [facility] [id number] Univers 12:00:00 12:00:00 DAMIÁN rodriguez f [facility] 2022-02-09 2022-02-09 Outpatient ELISHA GRIFFITHS [id number] Elisha 00:00:00 00:00:00 JOSIE Seybol d 2022-01-12 2022-01-12 Outpatient ELISHA GRIFFITHS [id number] Elisha 08:30:00 08:30:00 JOSIE Seybol d 2021-12-23 2021-12-23 Outpatient ELISHA GRIFFITHS [id number] Elisha 00:00:00 00:00:00 JOSIE Seybol d 2021-12-21 2021-12-21 Outpatient LAB90 ELISHA LIZ [id number] Elisha 11:45:00 11:45:00 Seybol d 2021-12-21 2021-12-21 Office Conner Griffiths [id number] Elisha 11:00:00 11:30:00 Visit Josie Jose [id number] Se ybold Somogyi 1.2.7.2.686 [id number] 2021-12-11 2021-12-11 Outpatient ELISHA LIZ [id number] Elisha 09:00:00 09:00:00 Seybol d 2021-12-01 2021-12-01 Outpatient ELISHA GRIFFITHS [id number] Elisha 10:30:00 10:30:00 JOSIE Seybol d 2021-12-01 2021-12-01 Telemedici Conner Griffiths 1.2.840.114 [id number] Elisha 09:15:00 09:15:00 ne Josie Jose [id number] Se ybold Somogyi 1.2.7.2.686 [id number] 2021-11-18 2021-11-18 Outpatient ELISHA BASS [id number] Elisha 00:00:00 00:00:00 SATYA Seybol d 2021-11-18 2021-11-18 Outpatient ELISHA BASS [id number] Elisha 00:00:00 00:00:00 SATYA Seybol d 2021-10-29 2021-10-29 Office Conner Griffiths 1.2.840.114 [id number] Elisha 10:45:00 11:00:00 Visit Josie Jose 350.1.13.13 Se emre Marvinyi 1.2.7.2.686 [id number] 2021-10-26 2021-10-26 Office Conner Griffiths 1.2.840.114 [id number] Elisha 16:15:00 16:30:00 Visit Josie Jose 350.1.13.13 Se emre Steinogyi 1.2.7.2.686 [id number] 2021-09-14 2021-09-14 Outpatient SVEN HUDDLESTON [id number] Elisha 00:00:00 00:00:00 Seybol d 2021-09-10 2021-09-10 Telemedici Conner GRIFFITHS 1.2.840.114 [id number] Elisha 11:00:00 11:00:00 ne JOSIE Jose 350.1.13.13 Se emre 1.2.7.2.686 [id number] 2021-09-01 2021-09-01 Telephone ANDREA Joya [id number] Univers 00:00:00 00:00:00 Katelynn TOMPKINS 350.1.13.10 ity of [facility] 4.2.7.2.686 Hermelindo as [id number] [address] 2021-08-31 2021-08-31 Laboratory Only, Ang Db Test [facility] 1.2.8 40.114 [id number] Univers 19:45:00 20:00:00 Only Vito Skinner [facility] 350.1.13.10 ity [facility] 4.2.7.2.686 Hermelindo as RAMEZ?BLEA [id number] [address] MEDICAL OFFICE BUILDING 2021-08-31 2021-08-31 Outpatient R JUANPABLO [facility] [id number] Univers 19:45:00 19:42:37 VITO [facility] 2021-08-31 2021-08-31 Orders Doctor MENDEZ 1.2.840.114 [id number] Univers 00:00:00 00:00:00 Only UnassBRY wilhelmY 350.1.13.10 ity of [facility] 4.2.7.2.686 Hermelindo as [id number] [place] [address] Branch 2021-08-18 2021-08-18 Outpatient ELISHA GRIFFITHS [id number] Elisha 00:00:00 00:00:00 JOSIE Seybol d 2021-08-06 2021-08-06 Outpatient SVEN HUDDLESTON [id number] Elisha 00:00:00 00:00:00 Seybol d 2021-07-21 2021-07-21 Telemedici Conner GRIFFITHS 1.2.840.114 [id number] Elisha 10:30:00 10:30:00 ne JOSIE Jose 350.1.13.13 Se ybold 1.2.7.2.686 [id number] 2021-07-10 2021-07-10 Outpatient SVEN HUDDLESTON [id number] Elisha 00:00:00 00:00:00 Seybol d 2021-07-09 2021-07-09 Outpatient ELISHA GRIFFITHS [id number] Elisha 00:00:00 00:00:00 JOSIE Seybol d 2021-07-09 2021-07-09 Outpatient ELISHA GRIFFITHS [id number] Elisha 00:00:00 00:00:00 JOSIE Seybol d 2021 2021 Office Conner Griffiths 1.2.840.114 [id number] Elisha 14:40:55 15:10:55 Visit Josie Jose 350.1.13.13 Se ybold Somogyi 1.2.7.2.686 [id number] 2021-06-16 2021-06-16 Outpatient SVEN HUDDLESTON [id number] Elisha 00:00:00 00:00:00 Seybol d 2021-06-16 2021-06-16 Outpatient SVEN HUDDLESTON [id number] Elisha 00:00:00 00:00:00 Seybol d 2021-06-16 2021-06-16 Outpatient SVEN HUDDLESTON [id number] Elisha 00:00:00 00:00:00 Seybol d 2021-06-12 2021-06-12 Outpatient SVEN HUDDLESTON ELISHA LIZ [id number] Elisha 00:00:00 00:00:00 Seybol d 2021-06-09 2021-06-09 Office Sven Huddleston 1.2.840.114 [id number] Elisha 08:24:44 08:39:44 Visit W Damon 350.1.13.13 Se ybold 1.2.7.2.686 [id number] 2021-05-28 2021-05-28 Office Sven Huddleston 1.2.840.114 [id number] Elisha 08:00:44 08:15:44 Visit W Damon 350.1.13.13 Se ybold 1.2.7.2.686 [id number] 2021-04-29 2021-04-29 Outpatient ELISHA DIAMOND [id number] Elisha 09:00:00 09:00:00 ANTONIO Seybol d 2021-04-13 2021-04-13 Outpatient ELISHA MADRIGAL [id number] Elisha 08:30:00 08:30:00 KATHERYNN Seyb old 2021-04-13 2021-04-13 Outpatient ELISHA GRIFFITHS [id number] Elisha 00:00:00 00:00:00 JOSIE Seybol d 2021-04-07 2021-04-07 Outpatient ELISHA GRIFFITHS [id number] Elisha 08:00:00 08:00:00 JOSIE Seybol d 2021-04-01 2021-04-01 Outpatient ELISHA LIZ [id number] Elisha 14:30:00 14:30:00 Seybol d 2021-04-01 2021-04-01 Outpatient ELISHA WEI [id number] Elisha 00:00:00 00:00:00 SATYA Seybol d 2021-03-20 2021-03-20 Outpatient ELISHA LIZ [id number] Elisha 13:40:00 13:40:00 Seybol d 2021-03-05 2021-03-05 Outpatient OLGA STOVALL [id number] Elisha 00:00:00 00:00:00 Seybol d 2021-02-24 2021-02-24 Outpatient ELISHA WEI [id number] Elisha 09:30:00 09:30:00 SATYA goldsmith 2020-09-01 2020-09-01 Laboratory Lab, Adc Fam Pob I [facility] 1.2. 840.114 [id number] Univers 18:28:45 18:48:45 [facility] 350.1.13.10 [facility] 4.2.7.2.686 Hermelindo as Professio [id number] Wy dical [address] Office [facility] 2020-09-01 2020-09-01 Outpatient R LAZARO [facility] [id number] Univers 18:40:00 18:40:00 [facility] 2019-05-22 2019-05-22 Outpatient MHSE YUAN [id number] MH 15:15:00 15:15:[address] [facility] 2019-04-03 2019-04-03 Outpatient MHSE YUAN [id number] MH 08:05:00 08:05:[address] [facility] [facility] 2019-02-16 2019-02-16 Outpatient MHSE MHSE [id number] MH 08:39:00 08:39:00 [facility] Results Test Description Test Time Test Comments Results Result Comments Source URINALYSIS NONAUTO W/O SCOPE 2021-05-28 13:23:00 Test Item Value Reference Range Interpretation Comme nts UD KETONES (test code = small 5-160 932361) UD GLUCOSE (test code = neg 100-2000 827566) UD PROTEIN (test code = 300 mg/dL Trace - 2,000 445674) UD LEUKOCYTES (test code = large Trace - Large @ 2 601918) min. UD NITRITE (test code = Neg. - Pos. @ 60 712581) sec. UD UROBILINOGEN (test code = 0.2 mg/dL 0.2-8 831820) UD PH (test code = 061393) See_Comment [Automated message] The system which ge nerated this result tra nsmitted reference range : 5.0 - 8.5 @ 60 sec.. The reference range was not used to interpr et this result as normal/abnormal . UD BLOOD (test code = 010827) large Neg. - Large @ 60 sec. UD SPECIFIC GRAVITY (test See_Comment [ Automated message] The code = 576403) system which generated this result tra nsmitted reference range : 1.000 - 1.030 @ 45 sec. . The reference range was not used to interpr et this result as normal/abnormal . UD BILIRUBIN (test code = neg Neg. - Large @ 45 834333) sec. Lab Interpretation (test code Abnormal = 36360-2) Elisha Bernal
--- NOTE | 2022-12-15 02:38 | ER ---
Nurse's Notes [facility] Name: Rosa Isela Grant Age: 57 yrs Sex: Female : 1965 Arrival Date: 12/15/2022 Time: 01:21 Bed 20 Private MD: Diagnosis: Unspecified symptoms and signs involving the musculoskeletal system;Pain in left lower leg Presentation: 12/15 01:45 Chief complaint: Patient states: I was woken up this morning with a pain in the outer kd3 part of my left leg and it continued to progress and after a minute i started to get nauseous and i tried to stand up and i could barely even stand. Coronavirus screen: Vaccine status: Patient reports receiving the 2nd dose of the covid vaccine. Ebola Screen: No symptoms or risks identified at this time. Initial Sepsis Screen: Does the patient meet any 2 criteria? No. Patient's initial sepsis screen is negative. Does the patient have a suspected source of infection? No. Patient's initial sepsis screen is negative. Risk Assessment: Do you want to hurt yourself or someone else? Patient reports no desire to harm self or others. Onset of symptoms was December 15, 2022. 01:45 Method Of Arrival: Wheelchair kd3 01:45 Acuity: BRISSA 3 kd3 Triage Assessment: 01:47 General: Appears uncomfortable, Behavior is calm, cooperative. Pain: Complains of pain kd3 in lateral aspect of left calf Pain currently is 2 out of 10 on a pain scale. GI: Reports nausea. 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 - Social history:: Smoking status: Patient reports the use of cigarette tobacco products, smokes one-half pack cigarettes per day. Screenin:10 [facility] ED Fall Risk Assessment (Adult) History of falling in the last 3 months, jj7 including since admission No falls in past 3 months (0 pts) Confusion or Disorientation No (0 pts) Intoxicated or Sedated No (0 pts) Impaired Gait No (0 pts) Mobility Assist Device Used No (0 pt) Altered Elimination No (0 pt) Score/Fall Risk Level 0 - 2 = Low Risk Oriented to surroundings, Maintained a safe environment. Abuse screen: Denies threats or abuse. Nutritional screening: No deficits noted. Tuberculosis screening: No symptoms or risk factors identified. Assessment: 02:10 General: Appears in no apparent distress. comfortable, Behavior is calm, cooperative, jj7 appropriate for age. Pain: Complains of pain in lateral aspect of left calf Pain currently is 2 out of 10 on a pain scale. 03:03 GI: No deficits noted. jj7 Vital Signs: 01:45 Pulse 59; Resp 19; Temp 98(O); Pulse Ox 98% on R/A; Weight 56.7 kg; Height 5 ft. 2 in. ;kd3 01:45 BP 98 / 70; kd3 02:57 BP 112 / 88; Pulse 59; Resp 20; Pulse Ox 99% ; Pain 2/10; jj7 01:45 Body Mass Index 22.86 (56.70 kg, 157.48 cm) kd3 02:57 Pain Scale: Adult jj7 ED Course: 01:25 Patient arrived in ED. ja2 01:27 Matt Wray MD is Attending Physician. kdr 01:47 Triage completed. kd3 01:47 Arm band placed on left wrist. kd3 02:05 Stephanie Jiménez, RUSS is Primary Nurse. jj7 02:10 Patient has correct armband on for positive identification. Call light in reach. Warm jj7 blanket given. 02:10 No provider procedures requiring assistance completed. jj7 02:35 US Extremity Venous Unilateral Ltd In Process Unspecified. EDMS 03:03 Patient did not have IV access during this emergency room visit. jj7 Administered Medications: No medications were administered Medication: 02:10 VIS not applicable for this client. jj7 Outcome: 02:37 Discharge ordered by . kdr 02:58 Discharged to home ambulatory. jj7 02:58 Condition: good 02:58 Discharge instructions given to patient, Instructed on discharge instructions, Demonstrated understanding of instructions. 03:34 Patient left the ED. jj7 Signatures: Dispatcher [employer] EDMO Matt Wray MD MD kdr Katelynn Moran ja2 Taylor Patel RN RN Stephanie Chappell RN RN jj7
--- NOTE | 2022-12-15 02:38 | EDPHYS ---
Physician Documentation [facility] Name: Rosa Isela Grant Age: 57 yrs Sex: Female : 1965 Arrival Date: 12/15/2022 Time: 01:21 Bed 20 Private MD: ED Physician Matt Wray HPI: 12/15 02:38 This 57 yrs old Female presents to ER via Wheelchair with complaints of Leg Pain, kdr Nausea. 02:38 The patient presents with pain, that is acute. The complaints affect the left lateral kdr ankle. Context: Patient states she was sleeping at home when she had acute pain in her left lower extremity. She has not had this before. She has no signs of any injury or precipitating symptoms. She otherwise in her usual state of health. She is concerned since her late had a DVT in his leg prior to his .. 02:40 Onset: The symptoms/episode began/occurred suddenly, just prior to arrival. Severity of kdr symptoms: At their worst the symptoms were incapacitating in the emergency department the symptoms have improved markedly, Patient refused pain medication. The patient has not experienced similar symptoms in the past. The patient has not recently seen a physician. 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 - Social history:: Smoking status: Patient reports the use of cigarette tobacco products, smokes one-half pack cigarettes per day. ROS: 02:40 Constitutional: Negative for fever, chills, and weight loss, Eyes: Negative for injury, kdr pain, redness, and discharge, Neck: Negative for injury, pain, and swelling, Cardiovascular: Negative for chest pain, palpitations, and edema, Respiratory: Negative for shortness of breath, cough, wheezing, and pleuritic chest pain, Abdomen/GI: Negative for abdominal pain, nausea, vomiting, diarrhea, and constipation, Back: Negative for injury and pain, : Negative for injury, bleeding, discharge, and swelling, Skin: Negative for injury, rash, and discoloration, Neuro: Negative for headache, weakness, numbness, tingling, and seizure activity. Psych: Negative for depression, anxiety, suicide ideation, homicidal ideation, and hallucinations, Allergy/Immunology: Negative for hives, rash, and allergies, Endocrine: Negative for neck swelling, polydipsia, polyuria, polyphagia, and marked weight changes, Hematologic/Lymphatic: Negative for swollen nodes, abnormal bleeding, and unusual bruising. 02:40 MS/extremity: Positive for pain, of the left lateral ankle. Exam: 02:40 Constitutional: This is a well developed, well nourished patient who is awake, alert, kdr and in no acute distress. Head/Face: Normocephalic, atraumatic. 02:40 Musculoskeletal/extremity: Extremities: grossly normal except: noted in the left lateral ankle: pain. Vital Signs: 01:45 Pulse 59; Resp 19; Temp 98(O); Pulse Ox 98% on R/A; Weight 56.7 kg; Height 5 ft. 2 in. ;kd3 01:45 BP 98 / 70; kd3 02:57 BP 112 / 88; Pulse 59; Resp 20; Pulse Ox 99% ; Pain 2/10; jj7 01:45 Body Mass Index 22.86 (56.70 kg, 157.48 cm) kd3 02:57 Pain Scale: Adult jj7 MDM: 02:37 Patient medically screened. kdr 02:40 Data reviewed: vital signs, nurses notes, radiologic studies. Consideration of kdr Admission/Observation Escalation of care including admission/observation considered. 12/15 02:07 Order name: US Extremity Venous Unilateral Ltd kdr Administered Medications: No medications were administered Disposition Summary: 12/15/22 02:37 Discharge Ordered Location: Home kdr Problem: new kdr Symptoms: have improved kdr Condition: Stable kdr Diagnosis - Unspecified symptoms and signs involving the musculoskeletal system kdr - Pain in left lower leg kdr Followup: kdr - With: Private Physician - When: 2 - 3 days - Reason: If symptoms return, Further diagnostic work-up, Recheck today's complaints, Continuance of care, Re-evaluation by your physician Discharge Instructions: - Discharge Summary Sheet kdr - Musculoskeletal Pain kdr - Heat Therapy, Daya-hv-Phpp kdr Forms: - Medication Reconciliation Form kdr - Thank You Letter kdr Signatures: Dispatcher [facility] Rittger, Matt, MD MD kdr Amanda, Taylor, RN RN kd3
[2022-12-15 04:54] VITALS: TEMP 98
[2022-12-15 04:56] VITALS: BP 112/88; O2SAT 99
--- NOTE | 2022-12-15 08:25 | RAD REPORT ---
EXAM DESCRIPTION: USExtremity Venous Uni Ltd12/15/2022 2:33 am CLINICAL HISTORY: left leg pain COMPARISON: None FINDINGS: Left common femoral, superficial femoral, greater saphenous, popliteal and posterior tibi al veins are compressible and demonstrate augmentation. Doppler demonstrates good flow. Grayscale, color and spectral analysis performed on all vessels IMPRESSION: No evidence of deep venous thrombosis involving the left lower extremity.
== END 2022-12-15 03:34 | disposition home or self-care (01) ==
LOC: ER 01:21
DX: R29.91 Unspecified symptoms and signs involving the musculoskeletal system (principal); F17.210 Nicotine dependence, cigarettes, uncomplicated; Z88.0 Allergy status to penicillin
CPT/HCPCS: 93971; 99283

== ENCOUNTER 2025-01-07 03:21 | Emergency (ER) | payer BC ==
--- OUTSIDE RECORDS SUMMARY | 2025-01-07 03:26 | XMS REPORT | Continuity of Care Document ---
Author Name Unknown Address [address] [place] [address] [facility] Address [address] [place] [address] Care Team Providers Care Shipping Weigher Name Role Phone PCP, PATIENT DOES NOT HAVE A Primary Care Physic elidia Unavailable SATYA HENRY Attending Clinician Unavailable [id number] Attending Clinician Unavailable JASMINA ZHU Attending Clinician Unavailable CHERRI SUTHERLAND Attending Clinician Unavailable YONG MONTANO Attending Clinician Unavailable MD ЕКАТЕРИНА Attending Clinician UnavailSCOTT Jaime Attending Clinician Unavailable MAX DUFFY Attending Clinician Unavailabl e LAB90 Attending Clinician Unavailable SHYAM HAWTHORNE Attending Clinician Unavailable TEO CHRISTOPHER Attending Clinician Unavailable DEBRA NOYOLA Attending Clinician Unavailable JAM GREGORIO Attending Clinician Unavaila ble SIVA, KAYLYN Attending Clinician Unavailable NATO NEVAREZ Attending Clinician Unavailable JOSIE GRIFFITHS Attending Clinician Unava ilable PROVIDER, PHIL Attending Clinician Unavailable KARSTEN HALE Attending Clinician Unavailable [id number] Attending Clinician Unavailable SATYA WEI Attending Clinician Unavailable DAMIÁN ROBLES Attending Clinician Unavailab everardo Griffiths MD, Josie Zimmer Attending Clinician [phone] SATYA BASS Attending Clinician Unavaila SVEN Palacio Attending Clinician Unavailable Toan SOLANO, Katelynn Rod Attending Clinician Unavaila ble Only, Ang Db Test Attending Clinician Unavailzee Skinner MD, Vito Attending Clinician [phone] VITO SKINNER Attending Clinician Unavailable Doctor Unassigned, [place] Attending Clinician U melania Huddleston MD, Sven Erazo Attending Clinician [phone] ANTONIO DIAMOND Attending Clinician Unavailable HARLEEN MADRIGAL Attending Clinician Unavailable OLGA STOVALL Attending Clinician Unavailable Lab, Adc Fam Pob I Attending Clinician Unavailab Rosemary Mayer Attending Clinician [phone] ROSEMARY WILLIS Attending Clinician Unavailable Payers Payer Name Policy Type Policy Number Effective Date Expirati on Date Source [employer] PPO AND OUT OF STATE [id number] 2019 00:00:00 [facility] [id number] 2024 00:00:00 [employer] [place] [id number] 2017 00:00:00 Problems Condition Name Condition Details Condition Category Status Onset Date Resolution Date Last Treatment Date Treating Clinician Comments Source Trigger middle finger of right hand Trigger middle finger of right hand Disease Active 3- 00:00: 00 Elisha Bernal - Externa l Acute cystitis without hematuria Acute cystitis without hematuria Disease Active 5 00:00: 00 Elisha Gonzalezold - Externa l Obstructiv e apnea Obstructiv e apnea Disease Active 6 00:00: 00 Elisha Seemre - Externa l DDD (degenerat jd disc disease), lumbosacra l DDD (degenerat jd disc disease), lumbosacra l Disease Active 2011-08 00:00: 00 Elisha Bernal - Externa l OA (osteoarth ritis of the spine) OA (osteoarth ritis of the spine) Disease Active 2011-08 00:00: 00 Elisha Bernal - Externa l Mixed anxiety depressive disorder Mixed anxiety depressive disorder Disease Active 2010-08 00:00: 00 Elisha Rasmussen Externa l Essential hypertensi on, benign Essential hypertensi on, benign Disease Active 2010-08 00:00: 00 Overview: Formattin g of this note might be different from the original. patel westfalla balwinder Allergies, Adverse Reactions, Alerts Allergy Name Allergy Type Status Severity Reaction(s) Onset Date Inactive Date Treating Clinician Comments Source Penicill in G Propensi ty to adverse reaction s Active Hives 10-11 00:00: 00 Elsiha Colea l PENICILL IN DRUG INGREDI Active Hives 10-11 00:00: 00 [facility] Penicill in Propensi ty to adverse reaction s Active Hives 10-11 00:00: 00 [facility] Penicill ins Propensi ty to adverse reaction s to drug Active Hives 2010-08 00:00: 00 Elisha Bernal Penicill ins Propensi ty to adverse reaction s to drug Active Hives 2010-08 00:00: 00 Elisha Rasmussen Externa l Social History Social Habit Start Date Stop Date Quantity Comments Source History SDOH Alcohol Frequency Elisha Almanza bold - External History SDOH Alcohol Std Drinks Elisha Bowen ybold - External History SDOH Alcohol Binge Elisha Bernal - External Exposure to SARS-CoV-2 (event) Yes Elisha andrea Gender identity Sabina weber Seybold - External Sexual orientation K elsevelia Bowenybsofia - External ASSERTION Not Elisha Bernal - External History of Occupation Elisha Bernal - External Alcoholic beverage intake 2024-10-11 00:00:00 2024-10-11 00:00:00 Current drinker of alcohol (finding) Elisha Bernal - External Alcohol intake 2023-11-15 00:00:00 2023-11-15 00:00:00 Current drinker of alcohol (finding) Elisha Bernal - External History of Social function 2023-05-06 00:00:00 2023-05-06 00:00:00 Elisha Bernal - External Tobacco use and exposure 2023-01-11 00:00:00 2023-01-11 00:00:00 Smokeless tobacco non-user Elisha Bernal - External Alcohol Comment 2020-12-23 00:00:00 2020-12-23 00:00:00 Socially Elisha Bernal - External Sex 2020-11-18 17:31:41 2020-11-18 17:31:41 Female (finding) Elisha Bernal - External Sex assigned at 1965 00:00:00 1965 00:00:00 Elisha Bernal - External Smoking Status Start Date Stop Date Source Never smoked tobacco Elisha Bernal - External Medications Ordered Medication Name Filled Medication Name Start Date Stop Date Current Medication? Ordering Clinician Indication Dosage Frequency Signature (SIG) Comments Components Source Nitrofurant oin Monohyd Macro 100 MG oral Capsule 09-20 00:00: 00 09-28 05:59 :00 No [id number] 100mg Q.5D Take 1 capsule (100 mg total) by mouth 2 times daily for 7 days Take OTC probiotics or plain yogurt with meals.. Elisha britt Oseltamivir Phosphate 75 MG oral Capsule 2023-08 00:00: 00 08-11 05:59 :00 No [id number] 75mg QD Take 1 capsule (75 mg total) by mouth daily for 10 days. Elisha britt Cyclobenzap rine HCl 10 MG oral Tablet 04-11 00:00: 00 Yes [id number] 10mg Q.5D Take 1 tablet (10 mg total) by mouth 2 times daily as needed for muscle spasms. Elisha britt Ibuprofen (MOTRIN) 800 MG oral Tablet 04-11 00:00: 00 10-11 00:00 :00 No [id number] 800mg Q.[id number] 3D Take 1 tablet (800 mg total) by mouth every 8 hours as needed for pain. Elisha britt Ipratropium [place] 0.03 % nasal Solution 8-15 00:00: 00 Yes [id number] 2{spray } Use 2 sprays in each nostril every 12 hours. Elisha britt Ketorolac Tromethamin e 10 MG oral Tablet 7-10 00:00: 00 Yes [id number] 10mg Q.25D Take 1 tablet (10 mg total) by mouth every 6 hours as needed for pain. Elisha britt Diclofenac Sodium 75 MG oral Tablet Delayed Response 3-27 00:00: 00 10-11 00:00 :00 No [id number] 75mg Q.5D Take 1 tablet (75 mg total) by mouth 2 times daily as needed. Elisha britt Pregabalin 25 MG oral Capsule 3-26 00:00: 00 Yes [id number] 25mg Q.5D Take 1 capsule (25 mg total) by mouth 2 times daily as needed (pain). Elisha britt guaiFENesin -Codeine 100-10 MG/5ML oral Syrup 09-21 00:00: 00 Yes [id number] 5mL Take 5 mL by mouth every 4 to 6 hours as needed for cough. Elisha britt methylPREDN ISolone 4 MG oral Tablet Therapy Pack 09-21 00:00: 00 Yes [id number] 1{tanika} Take 1 tanika by mouth See Admin Instructio ns Use as directed. Elisha britt Benzonatate 200 MG oral Capsule 09-21 00:00: 00 Yes [id number] 200mg Q.[id number] 3D Take 1 capsule (200 mg total) by mouth 3 times daily as needed for cough. Elisha britt Azithromyci n 250 MG oral Tablet 09-21 00:00: 00 09-27 05:59 :00 No [id number] Take 2 tablets by mouth on day 1 then 1 tablet by mouth daily for 4 days thereafter .. Elisha britt Sertraline HCl 50 MG oral Tablet 1-24 00:00: 00 09-09 05:59 :00 No 50mg QD Take 1 tablet (50 mg total) by mouth daily. Elisha britt Diclofenac Sodium 75 MG oral Tablet Delayed Response 09-07 00:00: 00 Yes [id number] 75mg Q.5D Take 1 tablet (75 mg total) by mouth 2 times daily as needed. Elisha britt Cyclobenzap rine HCl 5 MG oral Tablet 09-07 00:00: 00 11-14 00:00 :00 No [id number] 5mg QD Take 1 tablet (5 mg total) by mouth nightly as needed for muscle spasms. Elisha britt Sertraline HCl 50 MG oral Tablet 2022-08 00:00: 00 07-24 05:59 :00 No Take 0.5 tablets (25 mg total) by mouth daily for 7 days, THEN 1 tablet (50 mg total) daily. Elisha britt hydrOXYzine HCl 10 MG oral Tablet 2022-08 00:00: 00 Yes 10mg Q.[id number] 3D Take 1 tablet (10 mg total) by mouth every 8 hours as needed for anxiety. Elisha britt Cyclobenzap rine HCl 5 MG oral Tablet - 00:00: 00 09-07 00:00 :00 No [id number] 5mg Take 1 tablet (5 mg total) by mouth nightly. Elisha britt Diclofenac Sodium 75 MG oral Tablet Delayed Response -15 00:00: 00 09-07 00:00 :00 No [id number] 75mg Q.5D Take 1 tablet (75 mg total) by mouth 2 times daily as needed. Elisha britt Naproxen 500 MG oral Tablet -11 00:00: 00 Yes [id number] Take 1 tab by mouth every 12 hours for 3 days and then as needed for pain, with food. Elisha britt Cyclobenzap rine HCl 5 MG oral Tablet 9-11 00:00: 00 Yes [id number] 5mg Q.[id number] 3D Take 1 tablet (5 mg total) by mouth 3 times daily as needed for muscle spasms. Elisha britt TRIMETHOPRI M-SULFAMETH OXAZOLE (BACTRIM DS) 800-160 MG oral Tablet 8-15 00:00: 00 04-09 04:59 :00 No [id number] 1{tbl} Take 1 tablet by mouth 2 times daily for 3 days Elisha britt Pseudoeph-B romphen-DM 30-2-10 MG/5ML oral Syrup 03-14 00:00: 00 05-06 00:00 :00 No [id number] 10mL Q.25D Take 10 mL by mouth 4 times daily as needed Elisha britt Azithromyci n 250 MG oral Tablet 03-14 00:00: 00 03-20 04:59 :00 No [id number] Take 2 tablets by mouth on day 1 then 1 tablet by mouth daily for 4 days thereafter . Elisha britt Permethrin 5 % apply externally Cream 03-10 00:00: 00 09-07 00:00 :00 No APPLY TOPICALLY TO NECK DOWN TO FEET OVERNIGHT FOR 8 HOURS. WASH OFF IN THE MORNING. REPEAT IN 1 WEEK Elisha britt TRIMETHOPRI M-SULFAMETH OXAZOLE (BACTRIM DS) 800-160 MG oral Tablet 12-10 00:00: 00 01-11 00:00 :00 No [id number] 1{tbl} Take 1 tablet by mouth 2 times daily for 5 days Elisha britt Nitrofurant oin Monohyd Macro (Macrobid) 100 MG oral Capsule 12-06 00:00: 00 Yes [id number] 100mg Take 1 capsule (100 mg total) by mouth 2 times daily Elisha britt Fluconazole 150 MG oral Tablet 12-06 00:00: 00 12-07 04:59 :00 No [id number] 150mg Take 1 tablet (150 mg total) by mouth once for 1 dose Elisha britt Azithromyci n 250 MG oral Tablet 1-24 00:00: 00 09-20 05:59 :00 No [id number] Take 2 tablets by mouth on day 1 then 1 tablet by mouth daily for 4 days thereafter . Elisha britt Nitrofurant oin Monohyd Macro 100 MG oral Capsule 2021-08 0- 00:00: 00 06-06 04:59 :00 No [id number] 100mg Take 1 capsule (100 mg total) by mouth 2 times daily for 5 days Elisha britt BISOPROLOL- HCTZ 5-6.25 MG oral Tablet 03-22 00:00: 00 Yes 1{tbl} Take 1 tablet by mouth Take one tablet a day Elisha britt BIOTIN OR 12-21 10:59: 32 Yes Take by mouth Elisha Bernal BISOPROLOL- HCTZ 5-6.25 MG oral Tablet 12-17 00:00: 00 Yes 1{tbl} Take 1 tablet by mouth daily Elisha Bernal Nitrofurant oin Monohyd Macro 100 MG oral Capsule 12-01 00:00: 00 Yes [id number] 100mg Take 1 capsule (100 mg total) by mouth in the morning and 1 capsule (100 mg total) in the evening. Elisha Bernal BIOTIN OR 10-29 10:41: 34 Yes Take by mouth Elisha Bernal Azithromyci n 250 MG oral Tablet 10-29 00:00: 00 12-21 00:00 :00 No [id number] Take 2 tablets by mouth on day 1 then 1 tablet by mouth daily for 4 days thereafter . Elisha Bernal methylPREDN ISolone 4 MG oral Tablet Therapy Pack 10-29 00:00: 00 12-21 00:00 :00 No [id number] 1{tanika} Take 1 tanika by mouth See Admin Instructio ns Use as directed Elisha Bernal Ketorolac Tromethamin e (TORADOL) 60 mg/2 mL 10-26 22:45: 00 10-26 22:45 :00 No [id number] 60mg Elisha Bernal BIOTIN OR 10-26 16:03: 10 Yes Take by mouth Elisha Bernal Meloxicam 7.5 MG oral Tablet 10-26 00:00: 00 12-21 00:00 :00 No [id number] 7.5mg Take 1 tablet (7.5 mg total) by mouth in the morning. Elisha Bernal Cefdinir 300 MG oral Capsule 10-26 00:00: 00 12-21 00:00 :00 No [id number] 300mg Take 1 capsule (300 mg total) by mouth in the morning and 1 capsule (300 mg total) in the evening. Elisha Bernal Nitrofurant oin Monohyd Macro 100 MG oral Capsule 09-10 00:00: 00 10-29 00:00 :00 No [id number] 100mg Take 1 capsule (100 mg total) by mouth 2 times daily Elisha Bernal Meloxicam 15 MG oral Tablet 2020-08 00:00: 00 09-10 00:00 :00 No [id number] TAKE 1 TABLET(15 MG) BY MOUTH DAILY Elisha Bernal Meloxicam 15 MG oral Tablet 2020-08 00:00: 00 Yes [id number] TAKE 1 TABLET(15 MG) BY MOUTH DAILY Elisha Bernal Doxycycline Hyclate 100 MG oral Tablet 2020-08 00:00: 00 09-10 00:00 :00 No [id number] 100mg Take 1 tablet (100 mg total) by mouth 2 times daily Elisha Bernal BIOTIN OR 2020-08 14:51: 37 Yes Take by mouth Elisha Bernal Azithromyci n 250 MG oral Tablet 2020-08 00:00: 00 07-07 05:59 :00 No [id number] Take 2 tablets by mouth on day 1 then 1 tablet by mouth daily for 4 days thereafter . Elisha Bernal Permethrin 5 % apply externally Cream 2020-08 0- 00:00: 00 12-21 00:00 :00 No [id number] Apply to affected area and leave on for 8-14 hours. Repeat for 7 days. Elisha Bernal BIOTIN OR 2020-08 08:34: 51 Yes Take by mouth Elisha Bernal Meloxicam 15 MG oral Tablet 2020-08 00:00: 00 Yes [id number] 15mg Take 1 tablet (15 mg total) by mouth daily Elisha Bernal TRIMETHOPRI M-SULFAMETH OXAZOLE 800-160 MG oral Tablet 2020-08 00:00: 00 06-01 04:59 :00 No [id number] 1{tbl} Take 1 tablet by mouth 2 times daily for 3 days Elisha Bernal Paroxetine HCl 20 MG oral Tablet 04-14 00:00: 00 05-28 00:00 :00 No [id number] 20mg Take 1 tablet (20 mg total) by mouth every morning Elisha Bernal BIOTIN OR 04-07 07:59: 07 Yes Take by mouth Elisha Bernal Phenazopyri dine HCl 200 MG oral Tablet 02-18 00:00: 00 05-28 00:00 :00 No [id number] 200mg Q.[id number] 3D Take 1 tablet (200 mg total) by mouth 3 times daily as needed for pain Elisha Bernal hydrOXYzine HCl 25 MG oral Tablet 02-10 00:00: 00 05-28 00:00 :00 No [id number] 25mg Q.33223475 [id number] 3D Take 1 tablet (25 mg total) by mouth 3 times daily as needed for itching Elisha Bernal Multiple Vitamin (MULTI-ANKIT MINS OR) 2018-08 00:00: 00 12-21 00:00 :00 No Elisha Bernal aspirin (ASPIRIN LOW DOSE) 81 mg EC tablet 01-24 01:40: 40 Yes 81mg Take 81 mg by mouth daily. [facility] AMLODIPINE BESYLATE (AMLODIPINE ORAL) 01-24 01:17: 03 Yes Take by mouth. [facility] aspirin (ASPIRIN LOW DOSE) 81 mg EC tablet 01-23 20:40: 40 Yes 81mg Take 81 mg by mouth daily. [facility] AMLODIPINE BESYLATE (AMLODIPINE ORAL) 01-23 20:17: 03 Yes Take by mouth. [facility] bacitracin 500 unit/gram ointment 01-23 00:00: 00 Yes [id number] Apply to affected area(s) 3 (three) times daily. [facility] hydrOXYzine 25 mg tablet 01-23 00:00: 00 Yes [id number] 25mg Take 1 tablet by mouth every 6 (six) hours as needed for Itching. [facility] Immunizations Ordered Immunization Name Filled Immunization Name Date Status Comments Source Covid-19 Vaccine (Nujira), Mrna-lnp, Shay Protein, Pf, 30mcg/0.3ml,IM 2020-12-03 00:00:00 Completed Elisha Seybold Covid-19 Vaccine (Nujira), Mrna-lnp, Shay Protein, Pf, 30mcg/0.3ml,IM 2020-12-03 00:00:00 Completed Elisha Seybold Covid-19 Vaccine (Nujira), Mrna-lnp, Shay Protein, Pf, 30mcg/0.3ml,IM 2020-12-03 00:00:00 Completed Elisha Seybold Covid-19 Vaccine (Pfizer), Mrna-lnp, Shay Protein, Pf, 30mcg/0.3ml,IM 2020-12-03 00:00:00 Completed Elisha Seybold Covid-19 Vaccine (Nujira), Mrna-lnp, Shay Protein, Pf, 30mcg/0.3ml,IM 2020-12-03 00:00:00 Completed Elisha Seybold Covid-19 Vaccine (Nujira), Mrna-lnp, Shay Protein, Pf, 30mcg/0.3ml,IM 2020-12-03 00:00:00 Completed Elisha Seybold - External Covid-19 Vaccine (Nujira), Mrna-lnp, Shay Protein, Pf, 30mcg/0.3ml,IM 2020-12-03 00:00:00 Completed Elisha Seybold - External Covid-19 Vaccine (Nujira), Mrna-lnp, Shay Protein, Pf, 30mcg/0.3ml,IM 2020-12-03 00:00:00 Completed Elisha Seybold - External Covid-19 Vaccine (Pfizer), Mrna-lnp, Shay Protein, Pf, 30mcg/0.3ml,IM 2020-12-03 00:00:00 Completed Elisha Seybold - External Covid-19 Vaccine (Pfizer), Mrna-lnp, Shya Protein, Pf, 30mcg/0.3ml,IM 2020-12-03 00:00:00 Completed Elisha Seybold - External Covid-19 Vaccine (Pfizer), Mrna-lnp, Shay Protein, Pf, 30mcg/0.3ml,IM 2020-12-03 00:00:00 Completed Elisha Seybold - External Covid-19 Vaccine (Pfizer), Mrna-lnp, Shay Protein, Pf, 30mcg/0.3ml,IM 2020-12-03 00:00:00 Completed Elisha Seybold - External Covid-19 Vaccine (Pfizer), Mrna-lnp, Shay Protein, Pf, 30mcg/0.3ml,IM 2020-12-03 00:00:00 Completed Elisha Seybold - External Covid-19 Vaccine (Pfizer), Mrna-lnp, Shay Protein, Pf, 30mcg/0.3ml,IM 2020-12-03 00:00:00 Completed Elisha Seybold - External Covid-19 Vaccine (Pfizer), Mrna-lnp, Shay Protein, Pf, 30mcg/0.3ml,IM 2020-12-03 00:00:00 Completed Elisha Seybold Covid-19 Vaccine (Pfizer), Mrna-lnp, Shay Protein, Pf, 30mcg/0.3ml,IM 2020-12-03 00:00:00 Completed Elisha Seybold Covid-19 Vaccine (Pfizer), Mrna-lnp, Shay Protein, Pf, 30mcg/0.3ml,IM 2020-12-03 00:00:00 Completed Elisha Seybold Covid-19 Vaccine (Pfizer), Mrna-lnp, Shay Protein, Pf, 30mcg/0.3ml,IM 2020-12-03 00:00:00 Completed Elisha Seybold Covid-19 Vaccine (Pfizer), Mrna-lnp, Shay Protein, Pf, 30mcg/0.3ml,IM 2020-11-11 00:00:00 Completed Elisha Seybold Covid-19 Vaccine (Pfizer), Mrna-lnp, Shay Protein, Pf, 30mcg/0.3ml,IM 2020-11-11 00:00:00 Completed Elisha Seybold Covid-19 Vaccine (Pfizer), Mrna-lnp, Shay Protein, Pf, 30mcg/0.3ml,IM 2020-11-11 00:00:00 Completed Elisha Seybold Covid-19 Vaccine (Pfizer), Mrna-lnp, Shay Protein, Pf, 30mcg/0.3ml,IM 2020-11-11 00:00:00 Completed Elisha Seybold Covid-19 Vaccine (Pfizer), Mrna-lnp, Shay Protein, Pf, 30mcg/0.3ml,IM 2020-11-11 00:00:00 Completed Elisha Seybold Covid-19 Vaccine (Pfizer), Mrna-lnp, Shay Protein, Pf, 30mcg/0.3ml,IM 2020-11-11 00:00:00 Completed Elisha Seybold - External Covid-19 Vaccine (Pfizer), Mrna-lnp, Shay Protein, Pf, 30mcg/0.3ml,IM 2020-11-11 00:00:00 Completed Elisha Seybold - External Covid-19 Vaccine (Pfizer), Mrna-lnp, Shay Protein, Pf, 30mcg/0.3ml,IM 2020-11-11 00:00:00 Completed Elisha Seybold - External Covid-19 Vaccine (Pfizer), Mrna-lnp, Shay Protein, Pf, 30mcg/0.3ml,IM 2020-11-11 00:00:00 Completed Elisha Seybold - External Covid-19 Vaccine (Pfizer), Mrna-lnp, Shay Protein, Pf, 30mcg/0.3ml,IM 2020-11-11 00:00:00 Completed Elisha Seybold - External Covid-19 Vaccine (Pfizer), Mrna-lnp, Shay Protein, Pf, 30mcg/0.3ml,IM 2020-11-11 00:00:00 Completed Elisha Seybold - External Covid-19 Vaccine (Pfizer), Mrna-lnp, Shay Protein, Pf, 30mcg/0.3ml,IM 2020-11-11 00:00:00 Completed Elisha Seybold - External Covid-19 Vaccine (Pfizer), Mrna-lnp, Shay Protein, Pf, 30mcg/0.3ml,IM 2020-11-11 00:00:00 Completed Elisha Seybold - External Covid-19 Vaccine (Pfizer), Mrna-lnp, Shay Protein, Pf, 30mcg/0.3ml,IM 2020-11-11 00:00:00 Completed Elisha Seybold - External Covid-19 Vaccine (Pfizer), Mrna-lnp, Shay Protein, Pf, 30mcg/0.3ml,IM 2020-11-11 00:00:00 Completed Elisha Seybold Covid-19 Vaccine (Pfizer), Mrna-lnp, Shay Protein, Pf, 30mcg/0.3ml,IM 2020-11-11 00:00:00 Completed Elisha Seybold Covid-19 Vaccine (Pfizer), Mrna-lnp, Shay Protein, Pf, 30mcg/0.3ml,IM 2020-11-11 00:00:00 Completed Elisha Seybold Covid-19 Vaccine (Pfizer), Mrna-lnp, Shay Protein, Pf, 30mcg/0.3ml,IM 2020-11-11 00:00:00 Completed Elisha Seybold Tdap- (Boostrix, Adacel) 2019-07-03 00:00:00 Completed Elisha Seybold Tdap- (Boostrix, Adacel) 2019-07-03 00:00:00 Completed Elisha Seybold Tdap- (Boostrix, Adacel) 2019-07-03 00:00:00 Completed Elisha Seybold Tdap- (Boostrix, Adacel) 2019-07-03 00:00:00 Completed Elisha Seybold Tdap- (Boostrix, Adacel) 2019-07-03 00:00:00 Completed Elisha Seybold Tdap- (Boostrix, Adacel) 2019-07-03 00:00:00 Completed Elisha Seybold Tdap- (Boostrix, Adacel) 2019-07-03 00:00:00 Completed Elisha Seybold - External Tdap- (Boostrix, Adacel) 2019-07-03 00:00:00 Completed Elisha Seybold - External Tdap- (Boostrix, Adacel) 2019-07-03 00:00:00 Completed Elisha Seybold - External Tdap- (Boostrix, Adacel) 2019-07-03 00:00:00 Completed Elisha Seybold - External Tdap- (Boostrix, Adacel) 2019-07-03 00:00:00 Completed Elisha Seybold - External Tdap- (Boostrix, Adacel) 2019-07-03 00:00:00 Completed Elisha Seybold - External Tdap- (Boostrix, Adacel) 2019-07-03 00:00:00 Completed Elisha Seybold - External Tdap- (Boostrix, Adacel) 2019-07-03 00:00:00 Completed Elisha Seybold - External Tdap- (Boostrix, Adacel) 2019-07-03 00:00:00 Completed Elisha Seybold - External Tdap- (Boostrix, Adacel) 2019-07-03 00:00:00 Completed Elisha Seybold Tdap- (Boostrix, Adacel) 2019-07-03 00:00:00 Completed Elisha Seybold Tdap- (Boostrix, Adacel) 2019-07-03 00:00:00 Completed Elisha Bernal Covid-19 Vaccine (Nujira), Mrna-lnp, Shay Protein, Pf, 30mcg/0.3ml,IM Unknown Completed Elisha Bowenybol d - External Tdap- (Boostrix, Adacel) Unknown Completed Elisha Bernal - External Covid-19 Vaccine (Pfizer), Mrna-lnp, Shay Protein, Pf, 30mcg/0.3ml,IM Unknown Completed Elisha Bowenybol d - External Tdap- (Boostrix, Adacel) Unknown Completed Elisha Gonzalezold - External Covid-19 Vaccine (Pfizer), Mrna-lnp, Shay Protein, Pf, 30mcg/0.3ml,IM Unknown [facility]Boostrix, Adacel) Unknown Completed [facility] External Covid-19 Vaccine ([facility]), Mrna-lnp, Shay Protein, Pf, 30mcg/0.3ml,IM Unknown Completed [facility] d - External Tdap- (Boostrix, Adacel) Unknown Completed [facility] External Covid-19 Vaccine ([facility]), Mrna-lnp, Shay Protein, Pf, 30mcg/0.3ml,IM Unknown Completed [facility] d - External Tdap- (Boostrix, Adacel) Unknown Completed [facility] External Covid-19 Vaccine ([facility]), Mrna-lnp, Shay Protein, Pf, 30mcg/0.3ml,IM Unknown Completed [facility] d - External Tdap- (Boostrix, Adacel) Unknown Completed [facility] External Covid-19 Vaccine ([facility]), Mrna-lnp, Shay Protein, Pf, 30mcg/0.3ml,IM Unknown Completed [facility] - External Tdap- (Boostrix, Adacel) Unknown Completed [facility] External Covid-19 Vaccine ([facility]), Mrna-lnp, Shay Protein, Pf, 30mcg/0.3ml,IM Unknown Completed [facility] d - External Tdap- (Boostrix, Adacel) Unknown Completed [facility] Covid-19 Vaccine ([facility]), Mrna-lnp, Shay Protein, Pf, 30mcg/0.3ml,IM Unknown Completed [facility] d - External Tdap- (Boostrix, Adacel) Unknown Completed [facility] External Covid-19 Vaccine ([facility]), Mrna-lnp, Shay Protein, Pf, 30mcg/0.3ml,IM Unknown [facility] T[facility]- (Boostrix, Adacel) Unknown Completed [facility] External Covid-19 Vaccine ([facility]), Mrna-lnp, Shay Protein, Pf, 30mcg/0.3ml,IM Unknown Completed [facility] d - External Tdap- (Boostrix, Adacel) Unknown Completed Elisha Seybold - External Vital Signs Vital Name Observation Time Observation Value Comments S ource Systolic blood pressure 2024-10-11 20:00:00 114 mm[Hg] Elisha Seybo ld - External Diastolic blood pressure 2024-10-11 20:00:00 75 mm[Hg] Elisha Seybo ld - External Heart rate 2024-10-11 20:00:00 75 /min Kelse y Seybold - External Respiratory rate 2024-10-11 20:00:00 18 /min Elisha Seybold - External Body height 2024-10-11 20:00:00 157.5 cm Sabina ey Seybold - External Body weight 2024-10-11 20:00:00 57.607 kg Sabina ey Seybold - External BMI 2024-10-11 20:00:00 23.23 kg/m2 Sabina ey Seybold - External Oxygen saturation in Arterial blood by Pulse oximetry 2024-10-11 20:00:00 98 /min Elisha Seybo ld - External Systolic blood pressure 2023-11-15 20:31:00 124 mm[Hg] Elisha Seybo ld - External Diastolic blood pressure 2023-11-15 20:31:00 78 mm[Hg] Elisha Seybo ld - External Heart rate 2023-11-15 20:31:00 65 /min Kelse y Seybold - External Body temperature 2023-11-15 20:31:00 36.28 [place] Elisha Seybold - External Respiratory rate 2023-11-15 20:31:00 14 /min Elisha Seybold - External Body height 2023-11-15 20:31:00 157.5 cm Sabina ey Seybold - External Body weight 2023-11-15 20:31:00 62.596 kg Sabina ey Seybold - External BMI 2023-11-15 20:31:00 25.24 kg/m2 Sabina ey Seybold - External Systolic blood pressure 2023-09-14 19:37:00 119 mm[Hg] Elisha Seybo ld - External Diastolic blood pressure 2023-09-14 19:37:00 80 mm[Hg] Elisha Seybo ld - External Heart rate 2023-09-14 19:37:00 61 /min Kelse y Seybold - External Body weight 2023-09-14 19:37:00 59.421 kg Sabina ey Seybold - External BMI 2023-09-14 19:37:00 23.96 kg/m2 Sabina ey Seybold - External Systolic blood pressure 2023-09-07 17:21:00 106 mm[Hg] Elisha Seybo ld - External Diastolic blood pressure 2023-09-07 17:21:00 73 mm[Hg] Elisha Seybo ld - External Heart rate 2023-09-07 17:21:00 60 /min Kelse y Seybold - External Body temperature 2023-09-07 17:21:00 36.61 Clover Elisha Seybold - External Respiratory rate 2023-09-07 17:21:00 20 /min Elisha Seybold - External Body height 2023-09-07 17:21:00 157.5 cm Sabina ey Seybold - External Body weight 2023-09-07 17:21:00 59.058 kg Sabina ey Seybold - External BMI 2023-09-07 17:21:00 23.81 kg/m2 Sabina ey Seybold - External Oxygen saturation in Arterial blood by Pulse oximetry 2023-09-07 17:21:00 99 /min Elisha Seybo ld - External Systolic blood pressure 2023-06-09 14:53:00 101 mm[Hg] Elisha Seybo ld - External Diastolic blood pressure 2023-06-09 14:53:00 76 mm[Hg] Elisha Seybo ld - External Heart rate 2023-06-09 14:53:00 78 /min Kelse y Seybold - External Respiratory rate 2023-06-09 14:53:00 16 /min Elisha Seybold - External Body height 2023-06-09 14:53:00 157.5 cm Sabina ey Seybold - External Body weight 2023-06-09 14:53:00 58.151 kg Sabina ey Seybold - External BMI 2023-06-09 14:53:00 23.45 kg/m2 Sabina ey Seybold - External Systolic blood pressure 2023-05-06 15:46:00 122 mm[Hg] Elisha Seybo ld - External Diastolic blood pressure 2023-05-06 15:46:00 80 mm[Hg] Elisha Seybo ld - External Heart rate 2023-05-06 15:46:00 94 /min Kelse y Seybold - External Body temperature 2023-05-06 15:46:00 36.06 Clover Elisha Seybold - External Respiratory rate 2023-05-06 15:46:00 14 /min Elisha Seybold - External Body height 2023-05-06 15:46:00 157.5 cm Sabina ey Seybold - External Body weight 2023-05-06 15:46:00 57.153 kg Sabina ey Seybold - External BMI 2023-05-06 15:46:00 23.05 kg/m2 Sabina ey Seybold - External Systolic blood pressure 2023-03-14 20:33:00 100 mm[Hg] Elisha Seybo ld - External Diastolic blood pressure 2023-03-14 20:33:00 68 mm[Hg] Elisha Seybo ld - External Heart rate 2023-03-14 20:33:00 69 /min Kelse y Seybold - External Body temperature 2023-03-14 20:33:00 36.28 Clover Elisha Seybold - External Respiratory rate 2023-03-14 20:33:00 16 /min Elisha Seybold - External Body height 2023-03-14 20:33:00 157.5 cm Sbaina ey Seybold - External Body weight 2023-03-14 20:33:00 61.236 kg Sabina ey Seybold - External BMI 2023-03-14 20:33:00 24.69 kg/m2 Sabina ey Seybold - External Oxygen saturation in Arterial blood by Pulse oximetry 2023-03-14 20:33:00 98 /min Elisha Seybo ld - External Systolic blood pressure 2023-01-11 13:05:00 120 mm[Hg] Elisha Seybo ld - External Diastolic blood pressure 2023-01-11 13:05:00 79 mm[Hg] Elisha Seybo ld - External Heart rate 2023-01-11 13:05:00 62 /min Kelse y Seybold - External Body temperature 2023-01-11 13:05:00 36.33 Clover Elisha Seybold - External Respiratory rate 2023-01-11 13:05:00 16 /min Elisha Seybold - External Body height 2023-01-11 13:05:00 157.5 cm Sabina ey Seybold - External Body weight 2023-01-11 13:05:00 58.968 kg Sabina ey Seybold - External BMI 2023-01-11 13:05:00 23.78 kg/m2 Sabina ey Seybold - External Oxygen saturation in Arterial blood by Pulse oximetry 2023-01-11 13:05:00 99 /min Elisha Seybo ld - External Heart rate 2022-12-06 16:00:00 60 /min Kelse y Seybold - External Body temperature 2022-12-06 16:00:00 36.56 Clover Elisha Seybold - External Body height 2022-12-06 16:00:00 157.5 cm Sabina ey Seybold - External Body weight 2022-12-06 16:00:00 58.968 kg Sabina ey Seybold - External BMI 2022-12-06 16:00:00 23.78 kg/m2 Sabina ey Seybold - External Systolic blood pressure 2022-09-14 21:32:00 108 mm[Hg] Elisha Seybo ld - External Diastolic blood pressure 2022-09-14 21:32:00 74 mm[Hg] Elisha Seybo ld - External Heart rate 2022-09-14 21:32:00 69 /min Kelse y Seybold - External Body temperature 2022-09-14 21:32:00 36.89 Clover Elisha Seybold - External Respiratory rate 2022-09-14 21:32:00 14 /min Elisha Seybold - External Body height 2022-09-14 21:32:00 157.5 cm Sabina ey Seybold - External Body weight 2022-09-14 21:32:00 58.968 kg Sabina ey Seybold - External BMI 2022-09-14 21:32:00 23.78 kg/m2 Sabina ey Seybold - External Systolic blood pressure 2022-05-31 20:17:00 112 mm[Hg] Elisha Seybo ld - External Diastolic blood pressure 2022-05-31 20:17:00 74 mm[Hg] Elisha Seybo ld - External Heart rate 2022-05-31 20:17:00 82 /min Kelse y Seybold - External Body temperature 2022-05-31 20:17:00 37 Clover Elisha Seybold - External Respiratory rate 2022-05-31 20:17:00 14 /min Elisha Seybold - External Body height 2022-05-31 20:17:00 157.5 cm Sabina ey Seybold - External Body weight 2022-05-31 20:17:00 57.607 kg Sabina ey Seybold - External BMI 2022-05-31 20:17:00 23.23 kg/m2 Sabina ey Seybold - External Systolic blood pressure 2022-05-25 18:42:00 110 mm[Hg] Elisha Seybo ld - External Diastolic blood pressure 2022-05-25 18:42:00 70 mm[Hg] Elisha Seybo ld - External Heart rate 2022-05-25 18:42:00 85 /min Kelse y Seybold - External Respiratory rate 2022-05-25 18:42:00 16 /min Elisha Seybold - External Body height 2022-05-25 18:42:00 157.5 cm Sabina ey Seybold - External Body weight 2022-05-25 18:42:00 56.382 kg Sabina ey Seybold - External BMI 2022-05-25 18:42:00 22.73 kg/m2 Sabina ey Seybold - External Systolic blood pressure 2021-12-21 15:54:00 112 mm[Hg] Elisha Seybo ld Diastolic blood pressure 2021-12-21 15:54:00 68 mm[Hg] Elisha Seybo ld Heart rate 2021-12-21 15:54:00 60 /min Kelse y Seybold Body temperature 2021-12-21 15:54:00 36.56 Clover Elisha Seybold Respiratory rate 2021-12-21 15:54:00 16 /min Elisha Seybold Body height 2021-12-21 15:54:00 157.5 cm Sabina ey Seybold Body weight 2021-12-21 15:54:00 57.153 kg Sabina ey Seybold BMI 2021-12-21 15:54:00 23.05 kg/m2 Sabina ey Seybold Systolic blood pressure 2021-10-29 16:40:00 134 mm[Hg] Elisha Seybo ld Diastolic blood pressure 2021-10-29 16:40:00 73 mm[Hg] Elisha Seybo ld Heart rate 2021-10-29 16:40:00 77 /min Kelse y Seybold Body temperature 2021-10-29 16:40:00 36.72 Clover Elisha Seybold Respiratory rate 2021-10-29 16:40:00 16 /min Elisha Seybold Body height 2021-10-29 16:40:00 157.5 cm Sabina ey Seybold Body weight 2021-10-29 16:40:00 57.97 kg Sabina ey Seybold BMI 2021-10-29 16:40:00 23.37 kg/m2 Sabina ey Seybold Systolic blood pressure 2021-10-26 21:57:00 136 mm[Hg] Elisha Seybo ld Diastolic blood pressure 2021-10-26 21:57:00 90 mm[Hg] Elisha Seybo ld Heart rate 2021-10-26 21:57:00 100 /min Kelse y Seybold Body temperature 2021-10-26 21:57:00 36.89 Clover Elisha Seybold Respiratory rate 2021-10-26 21:57:00 16 /min Elisha Seybold Body height 2021-10-26 21:57:00 157.5 cm Sabina ey Seybold Body weight 2021-10-26 21:57:00 56.7 kg Sabina ey Seybold BMI 2021-10-26 21:57:00 22.86 kg/m2 Sabina ey Seybold Body temperature 2021 20:50:00 37.11 Clover Elisha Seybold Respiratory rate 2021 20:50:00 14 /min Elisha Seybold Body height 2021 20:50:00 157.5 cm Sabina ey Seybold Body weight 2021 20:50:00 57.879 kg Sabina ey Seybold BMI 2021 20:50:00 23.34 kg/m2 Sabina ey Seybold Oxygen saturation in Arterial blood by Pulse oximetry 2021 20:50:00 99 /min Elisha Gonzalezo ld Systolic blood pressure 2021-06-09 13:29:00 118 mm[Hg] Elisha Seybo ld Diastolic blood pressure 2021-06-09 13:29:00 72 mm[Hg] Elisha Bowenybo ld Heart rate 2021-06-09 13:29:00 87 /min Kelse y Seybold Body temperature 2021-06-09 13:29:00 36.56 Clover Elisha Bowenybold Respiratory rate 2021-06-09 13:29:00 12 /min Elisha Gonzalezold Body height 2021-06-09 13:29:00 157.5 cm Sabina ey Seybold Body weight 2021-06-09 13:29:00 58.06 kg Sabina ey ybold BMI 2021-06-09 13:29:00 23.41 kg/m2 Sabina ey Seybold Systolic blood pressure 2021-05-28 13:16:00 110 mm[Hg] Elisha Seybo ld Diastolic blood pressure 2021-05-28 13:16:00 76 mm[Hg] Elisha Seybo ld Heart rate 2021-05-28 13:16:00 64 /min Kelse y Seybold Body temperature 2021-05-28 13:16:00 36.89 Clover Elisha Seybold Respiratory rate 2021-05-28 13:16:00 20 /min Elishaafshin Bernal Body weight 2021-05-28 13:16:00 58.968 kg Sabina ey Seybold BMI 2021-05-28 13:16:00 23.78 kg/m2 Sabina ey ybsofia Procedures Procedure Date / Time Performed Performing Clinician Source LS RAPID STREP ASSAY-LAB TEST 2022-09-14 21:53:00 Josie Griffiths Elisha Bernal - External [facility] PATIENT FINANCIAL POLICY 2021-09-01 01:13:40 Doctor Unassigned, [place] [facility] NO SHOW OR MISSED APPOINTMENT POLICY ACKNOWLEDGEMENT 2021-09-01 01:13:26 Doctor Unassigned, [place] [facility] CONSENT/REFUSAL FOR DIAGNOSIS AND TREATMENT 2021-09-01 01:13:14 Doctor Unassigned, [place] [facility] ASSIGNMENT OF BENEFITS 2021-09-01 01:13:02 Docto r Unassigned, [place] [facility] URINALYSIS NONAUTO W/O SCOPE 2021-05-28 13:23:00 Sven Huddleston URINE CULTURE, ROUTINE 2021-05-28 13:19:00 Sven Huddleston URINE CULTURE, ROUTINE RESULT 2021-05-28 13:19:00 AgaSven Encounters Start Date/Time End Date/Time Encounter Type Admission Type Attending [facility] Care Department Encounter ID Source 2022-06-25 16:04:56 Outpatient [facility] [id number] [facility] 2021-06-10 15:00:50 Outpatient SATYA HENRY [facility] [id number] [facility] 2020-12-27 04:16:00 Outpatient SATYA HENRY [facility] [id number] [facility] 2024-11-30 15:00:00 2024-11-30 15:00:00 Outpatient ELISHA LIZ [id number] [facility] 2024-10-11 15:15:00 2024-10-11 15:15:00 Outpatient LAB47 ELISHA LIZ [id number] [facility] 2024-10-11 14:45:00 2024-10-11 14:45:00 Outpatient JASMINA ZHU [id number] [facility] 2024-09-20 13:30:00 2024-09-20 13:30:00 Outpatient CHERRI SUTHERLAND [id number] [facility] 2024-07-31 10:15:00 2024-07-31 10:15:00 Outpatient YONG MONTANO [id number] [facility] 2024-05-21 00:00:00 2024-05-21 00:00:00 Outpatient MD ELISHA MATTHEWS [id number] [facility] 2024-05-08 00:00:00 2024-05-08 00:00:00 Outpatient SCOTT CARRILLO [id number] [facility] 2024-04-11 08:45:00 2024-04-11 08:45:00 Outpatient MAX DUFFY ELISHA LIZ [id number] [facility] 2024-04-05 13:15:00 2024-04-05 13:15:00 Outpatient LAB90 ELISHA LIZ [id number] [facility] 2024-04-05 10:15:00 2024-04-05 10:15:00 Outpatient SCOTT CARRILLO ELISHA LIZ [id number] [facility] 2024-02-29 10:30:00 2024-02-29 10:30:00 Outpatient HAWTHORNEHSYAM Becker ELISHA LIZ [id number] [facility] 2024-02-15 16:15:00 2024-02-15 16:15:00 Outpatient PREZAS, TEO LIZ [id number] [facility] 2023-11-15 15:30:00 2023-11-15 15:30:00 Outpatient PREZAS, TEO LIZ [id number] [facility] 2023-11-13 00:00:00 2023-11-13 00:00:00 Outpatient PREZAS, TEO LIZ [id number] [facility] 2023-10-07 00:00:00 2023-10-07 00:00:00 Outpatient PREZAS, TEO LIZ [id number] [facility] 2023-10-06 15:15:00 2023-10-06 15:15:00 Outpatient PREZAS, TE[facility] LIZ [id number] [facility] 2023-09-21 08:30:00 2023-09-21 08:30:00 Outpatient DEBRA NOYOLA [id number] [facility] 2023-09-14 13:45:00 2023-09-14 13:45:00 Outpatient JASMINA ZHU [id number] [facility] 2023-09-07 11:30:00 2023-09-07 11:30:00 Outpatient PREZAS, TEO LIZ [id number] [facility] 2023-08-09 00:00:00 2023-08-09 00:00:00 Outpatient JAM GREGORIO ELISHA LIZ [id number] [facility] 2023-07-08 00:00:00 2023-07-08 00:00:00 Outpatient TEO CHRISTOPHER ELISHA LIZ [id number] [facility] 2023-06-09 10:45:00 2023-06-09 10:45:00 Outpatient LAB47 ELISHA LIZ [id number] [facility] 2023-06-09 10:00:00 2023-06-09 10:00:00 Outpatient AUDRA JASMINA ELISHA LIZ [id number] [facility] 2023-05-15 00:00:00 2023-05-15 00:00:00 Outpatient KAYLYN PANIAGUA ELISHA LIZ [id number] [facility] 2023-05-06 12:05:00 2023-05-06 12:05:00 Outpatient ELISHA LIZ [id number] [facility] 2023-05-06 11:15:00 2023-05-06 11:15:00 Outpatient TEO CHRISTOPHER ELISHA LIZ [id number] [facility] 2023-05-02 08:30:00 2023-05-02 08:30:00 Outpatient KAYLYN PANIAGUA ELISHA LIZ [id number] [facility] 2023-05-02 00:00:00 2023-05-02 00:00:00 Outpatient TEO CHRISTOPHER ELISHA LIZ [id number] [facility] 2023-04-05 08:35:00 2023-04-05 08:35:00 Outpatient LAB90 ELISHA LIZ [id number] [facility] 2023-04-05 08:00:00 2023-04-05 08:00:00 Outpatient NATO NEVAREZ [id number] [facility] 2023-03-14 15:15:00 2023-03-14 15:15:00 Outpatient JOSIE GRIFFITHS [id number] [facility] 2023-01-26 09:45:00 2023-01-26 09:45:00 Outpatient TEO CHRISTOPHER ELISHA LIZ [id number] [facility] 2023-01-11 08:15:00 2023-01-11 08:15:00 Outpatient TEO CHRISTOPHER ELISHA LIZ [id number] [facility] 2022-12-10 00:00:00 2022-12-10 00:00:00 Outpatient DEBRA NOYOLA [id number] [facility] so[facility] 2022-12-06 11:45:00 2022-12-06 11:45:00 Outpatient LABWilliam LIZ [id number] [facility] 2022-12-06 11:00:00 2022-12-06 11:00:00 Outpatient DEBRA NOYOLA [id number] [facility] 2022-11-22 19:20:00 2022-11-22 19:20:00 Outpatient PHIL FNOG [id number] [facility] 2022-11-19 15:45:00 2022-11-19 15:45:00 Outpatient MHIE MHIE [id number] Memoria balwinder Kumari 2022-09-14 16:30:00 2022-09-14 16:30:00 Outpatient JOSIE GRIFFITHS [id number] [facility] 2022-08-20 12:00:00 2022-08-20 12:00:00 Outpatient KARSTEN HALE [id number] [facility] 2022-08-13 00:00:00 2022-08-13 00:00:00 Outpatient MD ELISHA MATTHEWS [id number] [facility] 2022-05-31 16:45:00 2022-05-31 16:45:00 Outpatient LAB90 ELISHA LIZ [id number] [facility] 2022-05-31 15:30:00 2022-05-31 15:30:00 Out[facility]OL[facility] [id number] [facility] 2022-05-25 14:50:00 2022-05-25 14:50:00 Outpatient SRV59-CHA ELISHA LIZ [id number] [facility] 2022-05-25 14:00:00 2022-05-25 14:00:00 Outpatient WEISATYA ELISHA LIZ [id number] [facility] 2022-05-07 11:00:00 2022-05-07 11:00:00 Outpatient ELISHA LIZ [id number] [facility] 2022-05-07 10:00:00 2022-05-07 10:00:00 Outpatient ELISHA LIZ [id number] [facility] 2022-04-22 00:00:00 2022-04-22 00:00:00 Outpatient KARSTEN HALE [id number] [facility] 2022-04-20 00:00:00 2022-04-20 00:00:00 Outpatient KARSTEN HALE [id number] [facility] 2022-04-20 00:00:00 2022-04-20 00:00:00 Outpatient MD ELISHA MATTHEWS [id number] [facility] 2022-04-19 00:00:00 2022-04-19 00:00:00 Outpatient KARSTEN AHLE [id number] [facility] 2022-04-15 00:00:00 2022-04-15 00:00:00 Outpatient MD ELISHA MATTHEWS [id number] [facility] 2022-04-09 00:00:00 2022-04-09 00:00:00 Outpatient MD ELISHA MATTHEWS [id number] [facility] 2022-03-31 16:40:00 2022-03-31 16:40:00 Outpatient [id number] ELISHA ILZ [id number] [facility] 2022-03-31 15:30:00 2022-03-31 15:30:00 Office Visit SATYA WEI 1.2.840.114 350.1.13.13 [id number] [id number] [facility] 2022-02-09 12:00:00 2022-02-09 12:00:00 Outpatient DAMIÁN ANDERSON [facility] [id number] [facility] 2022-02-09 00:00:00 2022-02-09 00:00:00 Outpatient TUNDEJOSIE ABRAHAM ELISHA LIZ [id number] [facility] 2022-01-12 08:30:00 2022-01-12 08:30:00 Outpatient JOSIE GRIFFITHS ELISHA LIZ [id number] [facility] 2021-12-23 00:00:00 2021-12-23 00:00:00 Outpatient TUNDE JOSIE LIZ [id number] [facility] 2021-12-21 11:45:00 2021-12-21 11:45:00 Outpatient LAB90 ELISHA LIZ [id number] [facility] 2021-12-21 11:00:00 2021-12-21 11:30:00 [facility] [place] [facility] [place] 1.2.840.114 350.1.13.13 1.2.7.2.686 [id number] [facility] 2021-12-11 09:00:00 2021-12-11 09:00:00 Outpatient ELISHA LIZ [id number] [facility] 2021-12-01 10:30:00 2021-12-01 10:30:00 Outpatient JOSIE GRIFFITHS ELISHA LIZ [id number] [facility] 2021-12-01 09:15:00 2021-12-01 09:15:00 Telemedici ne [place] 1.2.840.114 350.1.13.13 1.2.7.2.686 [id number] [facility] so[facility]ia 2021-11-18 00:00:00 2021-11-18 00:00:00 Outpatient SATYA BASS [id number] [facility] 2021-11-18 00:00:00 2021-11-18 00:00:00 Outpatient SATYA BASS ELISHA LIZ [id number] [facility] 2021-10-29 10:45:00 2021-10-29 11:00:00 Office Visit Josie Griffiths 1.2.840.114 350.1.13.13 1.2.7.2.686 [id number] [facility] 2021-10-26 16:15:00 2021-10-26 16:30:00 Office Visit Josie Griffiths 1.2.840.114 350.1.13.13 1.2.7.2.686 [id number] [facility] 2021-09-14 00:00:00 2021-09-14 00:00:00 Outpatient SVEN HUDDLESTON ELISHA LIZ [id number] [facility] 2021-09-10 11:00:00 2021-09-10 11:00:00 Telemedici ne JOSIE GRIFFITHS 1.2.840.114 350.1.13.13 1.2.7.2.686 [id number] [facility] 2021-09-01 00:00:00 2021-09-01 00:00:[address] [facility] 1.2.840.114 350.1.13.10 4.2.7.2.686 [id number] [facility] 2021-08-31 19:45:00 2021-08-31 20:00:00 Laboratory Only Only, Ang Db Vito Ratliff [facility] 1.2.840.114 350.1.13.10 4.2.7.2.686 [id number] [facility] 2021-08-31 19:45:00 2021-08-31 19:42:37 Outpatient VITO DOS SANTOS [facility] [id number] [facility] 2021-08-31 00:00:00 2021-08-31 00:00:00 Orders Only Doctor Unassigned, [place] [facility] 1.2.840.114 350.1.13.10 4.2.7.2.686 [id number] [facility] 2021-08-18 00:00:00 2021-08-18 00:00:00 Outpatient JOSIE GRIFFITHS [id number] [facility] 2021-08-06 00:00:00 2021-08-06 00:00:00 Outpatient FLAQUITO SVEN LIZ [id number] [facility] 2021-07-21 10:30:00 2021-07-21 10:30:00 Telemedici ne TUNDEJOSIE ABRAHAM 1.2.840.114 350.1.13.13 1.2.7.2.686 [id number] [facility] 2021-07-10 00:00:00 2021-07-10 00:00:00 Outpatient FLAQUITO SVEN LIZ [id number] [facility] 2021-07-09 00:00:00 2021-07-09 00:00:00 Outpatient TUNDE JOSIE LIZ [id number] [facility] 2021-07-09 00:00:00 2021-07-09 00:00:00 Outpatient TUNDE, JOSIE LIZ [id number] [facility] 14:40:55 2021 15:10:55 Office Visit Tunde Josiesusan Zimmer Conner Jose 1.2.840.114 350.1.13.13 1.2.7.2.686 [id number] [facility] 2021-06-16 00:00:00 2021-06-16 00:00:00 Outpatient VSEN HUDDLESTON [id number] [facility] 2021-06-16 00:00:00 2021-06-16 00:00:00 Outpatient SVEN HUDDLESTON [id number] [facility] 2021-06-16 00:00:00 2021-06-16 00:00:00 Outpatient SVEN HUDDLESTON ELISHA LIZ [id number] [facility] 2021-06-12 00:00:00 2021-06-12 00:00:00 Outpatient SVEN HUDDLESTON ELISHA [id number] [facility] 2021-06-09 08:24:44 2021-06-09 08:39:44 Office Visit Sven Huddleston 1.2.840.114 350.1.13.13 1.2.7.2.686 [id number] [facility] 2021-05-28 08:00:44 2021-05-28 08:15:44 Office Visit Sven Huddleston 1.2.840.114 350.1.13.13 1.2.7.2.686 [id number] [facility] so[facility] 2021-04-29 09:00:00 2021-04-29 09:00:00 Outpatient DARAANTONIO ELISHA LIZ [id number] [facility] 2021-04-13 08:30:00 2021-04-13 08:30:00 Outpatient HARLEEN MADRIGAL [id number] [facility] 2021-04-13 00:00:00 2021-04-13 00:00:00 Outpatient JOSIE GRIFFITHS [id number] [facility] 2021-04-07 08:00:00 2021-04-07 08:00:00 Outpatient JOSIE GRIFFITHS [id number] [facility] 2021-04-01 14:30:00 2021-04-01 14:30:00 Outpatient ELISHA LIZ [id number] [facility] 2021-04-01 00:00:00 2021-04-01 00:00:00 Outpatient SATYA WEI [id number] [facility] 2021-03-20 13:40:00 2021-03-20 13:40:00 Outpatient ELISHA LIZ [id number] [facility] 2021-03-05 00:00:00 2021-03-05 00:00:00 Outpatient OLGA STOVALL ELISHA LIZ [id number] [facility] 2021-02-24 09:30:00 2021-02-24 09:30:00 Outpatient SATYA WEI ELISHA LIZ [id number] [facility] 2020-09-01 18:28:45 2020-09-01 18:48:45 Laboratory Only Lab, Adc Fam P[facility] 1.2.840.114 350.1.13.10 4.2.7.2.686 [id number] [facility] 2020-09-01 18:40:00 2020-09-01 18:40:00 Outpatient Abdi WILLIS [facility] [id number] [facility] 2019-05-22 15:15:00 2019-05-22 15:15:00 Outpatient MHSE YUAN [id number] [facility] 2019-04-03 08:05:00 2019-04-03 08:05:00 Out[id number] [facility] 2019-02-16 08:39:00 2019-02-16 08:39:00 Outpatient [facility] [id number] [facility] Results Test Description Test Time Test Comments Results Result Co mments Source Elisha Bernal Notes Date/Time Note Provider Source 2024-10-11 14:01:34 Chief Complaint Patient presents with Well Woman Exam Rose Ruiz MA R MANAGEMENT SPECIALIST Rose Ruiz MA [facility] 2023-11-15 15:33:42 Chief Complaint Patient presents with Follow-up 4 week follow up on back pain [facility]23-09-14 13:36:22 Chief Complaint Patient presents with Follow-up Recent Meds for anxiety. Pt states she is feeling better and less on edge. Roxie Chauhan R MANAGEMENT SPECIALIST Roxie Chauhan [facility] 2023-05-06 10:49:29 Formatting of this n ote is different from the original. Chief Complaint Patient presents with Abdominal Pain Left side pain for 1 week. No injury. She states that it's right under rib cage and very painful Agata Pruett MA II T [facility] 2023-03-14 15:38:26 Formatting of this n ote might be different from the original. Patient is here to be seen for C/O sore throat x 1 week, states that left side feels swollen, states that last week she had sinus pressure and drainage. Denies any other symptoms, afebrile. VSS, medications reconciled. T Elinor Suresh [facility]
--- NOTE | 2025-01-07 05:14 | EDPHYS ---
Physician Documentation [facility] Name: Rosa Isela Grant Age: 59 yrs Sex: Female : 1965 Arrival Date: 01/07/2025 Time: 03:21 Bed 12 Private MD: ED Physician Santiago Brown HPI: 01/07 05:41 This 59 yrs old Female presents to ER via Ambulatory with complaints of Rib pain. rt 05:41 Patient presents to the ED with a pain to the left lower rib margin. A few days ago, rt the patient was pushing furniture when she felt a pop to the area. Denies difficulty breathing, the acute complaints, symptoms are moderate in severity, aching nature, nonradiating, no other aggravating alleviating factors.. Historical: - Allergies: 03:48 PENICILLINS; br2 - PMHx: 03:48 Cholelithiasis; Hypertension; br2 - PSHx: 03:48 Appendectomy; Cholecystectomy; gastric sleeve; br2 - Immunization history:: Adult Immunizations up to date. - Infectious Disease History:: Denies. - Social history:: Smoking status: Patient reports the use of cigarette tobacco products, smokes one pack cigarettes per day. Patient/guardian denies using alcohol, street drugs. ROS: 05:41 Constitutional: Negative for fever, chills, and weight loss, Respiratory: Negative for rt shortness of breath, cough, wheezing, and pleuritic chest pain, Abdomen/GI: Negative for abdominal pain, nausea, vomiting, diarrhea, and constipation, MS/Extremity: Negative for injury and deformity, Skin: Negative for injury, rash, and discoloration, Neuro: Negative for headache, weakness, numbness, tingling, and seizure, Exam: 05:41 Constitutional: This is a well developed, well nourished patient who is awake, alert, rt and in no acute distress. Head/Face: Normocephalic, atraumatic. Cardiovascular: Regular rate and rhythm with a normal S1 and S2. No gallops, murmurs, or rubs. Normal PMI, no JVD. No pulse deficits. Respiratory: Lungs have equal breath sounds bilaterally, clear to auscultation and percussion. No rales, rhonchi or wheezes noted. No increased work of breathing, no retractions or nasal flaring. Abdomen/GI: Soft, non-tender, with normal bowel sounds. No distension or tympany. No guarding or rebound. No evidence of tenderness throughout. Back: No spinal tenderness. No costovertebral tenderness. Full range of motion. MS/ Extremity: Pulses equal, no cyanosis. Neurovascular intact. Full, normal range of motion. Neuro: Awake and alert, GCS 15, oriented to person, place, time, and situation. Cranial nerves II-XII grossly intact. Motor strength 5/5 in all extremities. Sensory grossly intact. Cerebellar exam normal. Normal gait. 05:41 Chest/axilla: Tenderness to the left lower rib margin, no crepitus felt. Vital Signs: 03:44 BP 145 / 105; Pulse 73; Resp 18 S; Temp 98.8(O); Pulse Ox 100% on R/A; Weight 56.7 kg; br2 Height 5 ft. 2 in. ; Pain 10/10; 03:44 Body Mass Index 22.86 (56.70 kg, 157.48 cm) br2 03:44 Pain Scale: Adult br2 MDM: 03:45 Medical Screening Exam initiated rt 05:41 Differential Diagnosis Rib fracture, musculoskeletal pain. Data reviewed: vital signs, rt nurses notes, radiologic studies. Independent interpretation of the following test(s) in the Emergency Department X-Ray: My interpretation is No fracture seen on interpretation of x-ray images. Care significantly affected by the following chronic conditions: Hypertension. Counseling: I had a detailed discussion with the patient and/or guardian regarding the historical points, exam findings, and any diagnostic results supporting the discharge/admit diagnosis, radiology results, the need for outpatient follow up. 01/07 03:48 Order name: Ribs Left XRAY rt Administered Medications: No medications were administered Disposition Summary: 01/07/25 05:14 Discharge Ordered Notes: Location: Home rt Problem: new rt Symptoms: are unchanged rt Condition: Stable rt Diagnosis - Chest wall pain rt Followup: rt - With: Private Physician - When: 2 - 3 days - Reason: Discharge Instructions: - Discharge Summary Sheet rt - Chest Wall Pain rt Forms: - Medication Reconciliation Form rt - Antibiotic Education rt - Prescription Opioid Use rt - Patient Portal Instructions rt - Leadership Thank You Letter rt Prescriptions: - Cyclobenzaprine 10 mg Oral tablet - take 1 tablet ORAL route every 8 hours As needed; 15 tablet; Refills: 0, rt Product Selection Permitted Signatures: Dispatcher [employer] EDMN Santiago Brown MD MD rt Riddle, Belinda, RN RN br2
--- NOTE | 2025-01-07 05:14 | ER ---
Nurse's Notes [facility] Name: Rosa Isela Grant Age: 59 yrs Sex: Female : 1965 Arrival Date: 01/07/2025 Time: 03:21 Bed 12 Private MD: Diagnosis: Chest wall pain Presentation: 01/07 03:44 Chief complaint: Patient states: PT STATES WAS TRYING TO MOVE A MASSAGE CHAIR AND FELT br2 A 'POP' IN HER LEFT RIB, THIS OCCURRED ON TUESDAY. Coronavirus screen: Client denies travel out of the [place] in the last 14 days. Ebola Screen: Patient denies exposure to infectious person. Initial Sepsis Screen: Does the patient meet any 2 criteria? No. Patient's initial sepsis screen is negative. Does the patient have a suspected source of infection? No. Patient's initial sepsis screen is negative. Risk Assessment: Do you want to hurt yourself or someone else? Patient reports no desire to harm self or others. Onset of symptoms was January 04, 2025. 03:44 Method Of Arrival: Ambulatory br2 03:44 Acuity: BRISSA 4 br2 Triage Assessment: 03:48 General: Appears uncomfortable, Behavior is calm, cooperative. Pain: Complains of pain br2 in anterior aspect of left lateral abdomen Pain currently is 8 out of 10 on a pain scale. Musculoskeletal: Reports pain in anterior aspect of left lateral abdomen. Historical: - Allergies: 03:48 PENICILLINS; br2 - PMHx: 03:48 Cholelithiasis; Hypertension; br2 - PSHx: 03:48 Appendectomy; Cholecystectomy; gastric sleeve; br2 - Immunization history:: Adult Immunizations up to date. - Infectious Disease History:: Denies. - Social history:: Smoking status: Patient reports the use of cigarette tobacco products, smokes one pack cigarettes per day. Patient/guardian denies using alcohol, street drugs. Screenin:51 [facility] ED Fall Risk Assessment (Adult) History of falling in the last 3 months, br2 including since admission No falls in past 3 months (0 pts) Confusion or Disorientation No (0 pts) Intoxicated or Sedated No (0 pts) Impaired Gait No (0 pts) Mobility Assist Device Used No (0 pt) Altered Elimination No (0 pt) Score/Fall Risk Level 0 - 2 = Low Risk Oriented to surroundings. Abuse screen: Denies threats or abuse. Denies injuries from another. Nutritional screening: No deficits noted. Tuberculosis screening: No symptoms or risk factors identified. Assessment: 03:44 Reassessment: SEE TRIAGE ASSESSMENT. br2 Vital Signs: 03:44 BP 145 / 105; Pulse 73; Resp 18 S; Temp 98.8(O); Pulse Ox 100% on R/A; Weight 56.7 kg; br2 Height 5 ft. 2 in. ; Pain 10/10; 03:44 Body Mass Index 22.86 (56.70 kg, 157.48 cm) br2 03:44 Pain Scale: Adult br2 ED Course: 03:23 Patient arrived in ED. mr 03:28 Santiago Brown MD is Attending Physician. rt 03:43 Milana Perez, RN is Primary Nurse. br2 03:48 Triage completed. br2 03:48 Arm band placed on right wrist. br2 03:51 Patient has correct armband on for positive identification. Call light in reach. Side br2 rails up X 1. Provided Education on: PLAN OF CARE. 04:18 Ribs Left XRAY In Process Unspecified. EDMS 05:20 No provider procedures requiring assistance completed. Patient did not have IV access br2 during this emergency room visit. intact, bleeding controlled, No redness/swelling at site. Pressure dressing applied. Administered Medications: No medications were administered Outcome: 05:14 Discharge ordered by . rt 05:20 Discharged to home ambulatory, br2 05:20 Condition: good 05:20 Discharge instructions given to patient, Instructed on discharge instructions, follow up and referral plans. Demonstrated understanding of instructions, follow-up care, medications, Prescriptions given X 1, 05:21 Patient left the ED. br2 Signatures: Dispatcher [employer] EDNY Melita Medeiros, Reg Bridger mr Santiago Brown MD MD rt Milana Perez, RN RN br2
--- NOTE | 2025-01-07 05:22 | RAD REPORT ---
EXAM DESCRIPTION: Ribs Left CLINICAL HISTORY: PAIN COMPARISON: None. FINDINGS: 2 views of the left ribs. No acute fracture or dislocation. Normal osseous mineral ization. No left-sided pneumothorax. IMPRESSION: No left rib fracture identified. Electronically signed by: Peter Ribera DO 01/07/2025 05:08 AM CDT RP [id number] Transcribed Date/Time: 01/07/2025 5:22 AM
== END 2025-01-07 05:21 | disposition home or self-care (01) ==
LOC: ER 03:21
DX: R07.89 Other chest pain (principal); I10 Essential (primary) hypertension; F17.210 Nicotine dependence, cigarettes, uncomplicated
CPT/HCPCS: 99283